=== PATIENT | female | born 1960 | race Caucasian/White ===

== ENCOUNTER → 2017-07-03 15:20 | Outpatient (CLI) | payer MEDICARE, MEDICAID, SELFPAY ==
--- NOTE | 2017-07-03 15:28 | XR_ITS ---
XR ankle LT min 3V HISTORY: ITS.REASON: BILAT ANKLE PAIN ORDERING PHYSICIAN: Yamini Ortiz PATIENT AGE: 57 years COMPARISON: None FINDINGS: No fracture or dislocation. No lytic or blastic change. There is normal mineralization.. The joint spaces are well-preserved. No significant degenerative/arthritic changes. No erosive changes evident. There is a small calcaneal spur IMPRESSION: Negative left ankle, no acute finding
--- NOTE | 2017-07-03 15:28 | XR_ITS ---
XR ankle RT min 3V HISTORY: Ankle pain ITS.REASON: BILAT ANKLE PAIN ORDERING PHYSICIAN: Yamini Ortiz PATIENT AGE: 57 years COMPARISON: None FINDINGS: No fracture or dislocation. No lytic or blastic change. There is normal mineralization.. There are mild hypertrophic changes of the tip of the medial malleolus. Ankle joint space is well-preserved. No lytic or blastic change. There is mild soft tissue swelling along the lateral aspect of the ankle IMPRESSION: Mild hypertrophy along the tip of the lateral malleolus consistent with degenerative changes with mild soft tissue swelling laterally otherwise negative
== END ==
PROVIDERS: PCP Family Medicine; Visit Provider Nurse Practitioner
DX: M25.571 Pain in right ankle and joints of right foot (principal); M25.572 Pain in left ankle and joints of left foot
CPT/HCPCS: 73610

== ENCOUNTER → 2018-01-29 11:07 | Outpatient (CLI) | payer MEDICARE, MEDICAID, SELFPAY ==
[2018-01-29 11:47] LABS: Basophils # 0.1 K/mm3 (0-0.2); Basophils % 0.6 % (0.1-2.0); Eosinophils # 0.3 K/mm3 (0.0-0.4); Eosinophils % 2.8 % (0.1-12.0); Hematocrit 38.3 % (37.0-47.0); Hemoglobin 12.6 g/dL (12.2-16.2); Lymphocytes # 2.5 K/mm3 (0.7-4.5); Lymphocytes % 24.8 K/mm3 (10-50); Mean Corpuscular HGB Conc 32.8 g/dL (31.8-35.4); Mean Corpuscular Hemoglobin 28.8 pg (27.0-31.2); Mean Corpuscular Volume 87.7 fl (81-99); Monocytes # 0.7 K/mm3 (0.1-1.0); Monocytes % 7.1 % (1.7-9.3); Neutrophils # 6.4 K/mm3 (1.8-7.8); Neutrophils % 64.6 % (37.0-80.0); Platelet Count 317 K/mm3 (142-424); Red Blood Count 4.37 M/mm3 (4.20-5.40); Red Cell Distribution Width 13.9 % (11.5-17.5); White Blood Count 9.9 K/mm3 (4.8-10.8)
--- NOTE | 2018-01-29 11:51 | XR_ITS ---
XR chest 2V HISTORY: ITS.REASON: HTN,ASTHMA ORDERING PHYSICIAN: Jelena Graham DPM PATIENT AGE: 58 years COMPARISON: 10/02/2016 FINDINGS: The cardiomediastinal silhouette and pulmonary vascularity are within normal limits. There are minimal atelectatic changes in the left lung base. The remaining lungs are clear. Mild degenerative change thoracic spine. IMPRESSION: Minimal left basilar atelectasis
[2018-01-29 12:04] LABS: INR 0.88 (0.9-1.1); Prothrombin Time 9.1 seconds (9.4-11.8)
[2018-01-29 12:34] LABS: Alanine Aminotransferase 18 U/L (12-78); Albumin Level 4.1 gm/dL (3.4-5.0); Albumin/Globulin Ratio 1.2 (1.1-1.8); Alkaline Phosphatase 142 U/L (46-116); Anion Gap 13.4 mEq/L (5-15); Aspartate Amino Transferase 15 U/L (15-37); Bilirubin,Total 0.3 mg/dL (0.2-1.0); Blood Urea Nitrogen 35 mg/dL (7-18); Calcium 9.1 mg/dL (8.5-10.1); Carbon Dioxide 30 mmol/L (21.0-32.0); Chloride 100 mmol/L (98-107); Creatinine,Serum 2.06 mg/dL (0.55-1.02); Estimated Glomerular Filt Rate 25 ml/min (>60); GFR (African American) 30 ML/MIN (>60); Globulin 3.3 gm/dl (1.3-3.2); Glucose 93 mg/dL (74-106); Potassium 3.4 mmoL/L (3.5-5.1); Sodium 140 mmol/L (136-145); Total Protein,Serum 7.4 gm/dL (6.4-8.2)
[2018-02-01 12:55] LABS: Vitamin D 25 Hydroxy 16.8 ng/mL (30.0-100.0)
== END ==
PROVIDERS: PCP Family Medicine; Visit Provider Podiatrist
DX: Z01.818 Encounter for other preprocedural examination (principal); S93.324A Dislocation of tarsometatarsal joint of right foot, initial encounter
CPT/HCPCS: 36415; 71046; 80053; 82652; 85025; 85610; 93005

== ENCOUNTER 2018-02-11 13:41 | Outpatient (RCR) | payer MEDICARE, MEDICAID, SELFPAY ==
--- NOTE | 2018-02-11 14:54 | HMH.PTOPWND ---
Rehab Outpt Wound Evaluation Rehab OP Wound Evaluation Start: 02/11/18 14:26 Freq: Status: Active Protocol: Document 02/11/18 14:26 [place] (Rec: 02/11/18 14:53 PHORNE [id number]) Electronically Signed By Kings Samuels, PT 02/11/18 14:26 Subjective/History History History Pt is 58 yowf who presents with c/o pain and edema in right foot/ankle x ~ 2-3 wks due to lis franc fx and med malleolus avulsion fx after I stepped in a hole while I was walking my dog. She reports pain with right foot in a dependent position and walking . She also reports her splint that MD applied was bothering her foot, so she took it off. She has hx of HTN, sleep apnea , anxiety/depression, chronic LBP. Lymphedema Eval Classification of Lymphedema Secondary Lymphedema Yes: due to fxs Stemmer's sign Stemmer's Sign no Stage of Lymphedema Lymphedema stages Stage I (Pitting edema, reduces w/ elevation, no fibrosis) Skin Changes Redness Yes Pain Scale Pain Scale (0-10) 8 Affected Extremities Areas Affected by Lymphedema/Edema Right Lower Extremity Manual Lymphatic Drainage Treatment Area MLD Treatment Area Right Lower Extremity Wound Problems/Impairments Impairments Problems/Impairmments Palpation Tenderness Impaired Range of Motion Impaired Strength Impaired Walking Impaired Standing Increased Edema Lymphedema Present Subjective C/O Pain Impaired Self Care/Self Management Prognosis Rehab Potential Fair Clinical Impression Consistent with Diagnosis Yes Short Term Goals Number of Weeks 4 Decreased Palpation Tenderness Yes: to min Decrease Subjective C/O Pain Yes: 11/15 Patient to Understand Lymphedema Yes Treatment and Exercises Decrease Girth Measurments by (cm) Yes: by 5 cm Fpc Goals Number of Weeks 8 Decreased Palpation Tenderness Yes: to none Decrease Subjective C/O Pain Yes: / Patient to be Ind w/ HEP Yes Patient to Adhere Lymphedema Precautions Yes Decrease Girth Measurment
== END 2018-02-11 13:42 | disposition home or self-care (01) ==
LOC: PT 13:41
PROVIDERS: Family Provider Family Medicine; PCP Family Medicine; Visit Provider Podiatrist
DX: S93.401A Sprain of unspecified ligament of right ankle, initial encounter (principal); R60.0 Localized edema
CPT/HCPCS: 97162; 97760

== ENCOUNTER → 2018-03-25 10:54 | Outpatient (CLI) | payer MEDICARE, MEDICAID, SELFPAY ==
--- NOTE | 2018-03-25 10:59 | MM_ITS ---
MM Dig screening mamm BI w/CAD ORDERING PHYSICIAN : Yamini Ortiz PATIENT AGE: 58 years GENDER: Female COMPARISON: Bilateral mammogram 2016, 11/30/2014, April 2013, November 2010 INDICATION: ITS.REASON: SCREENING no hormones. No new complaints Family history. Sister with breast cancer age 65 TECHNIQUE: Standard CC and MLO images were obtained. R2 CAD reviewed. FINDINGS: Lower density breast with generalized fatty replacement . Minimal residual fibroglandular elements. . No suspicious calcifications. No prominent findings but there is a minor density medial Right Breast slightly more evident today This Elongated somewhat linear area of density at the medial Right breast on cc view, also has a 4 mm round area at its anterior aspect.. It is best seen on the cc view, particularly the additional nipple profile cc view; & barely appreciable on the MLO view Very faint similar appearance seen on previous studies , & Mar 23. However this density stands out more so today. Appears Slightly denser today but this may be due to technique & contrast settings.. However With Final review of this area I would suggest the patient return CC, rolled cc spot views of this area along with MLO spot. Also noted positive family history with sibling warrants diligence Left breast appears stable with no significant new findings. Follow-up in one year recommended IMPRESSION: ........................ 1. Right breast somewhat linear area of density medial right breast; faintly seen previously but appears to be more pronounced & denser on today's images.-. This may merely due to technique accentuating density today, but Suggest spot views to further evaluate. 2. Left breast appears stable. Follow-up in one year BI-RADS Category: 0 Need Additional Imaging Evaluation RECOMMENDED FOLLOW-UP: IMM - IMMEDIATE FOLLOW-UP RECOMMENDED Spot views right breast (A letter has been sent to the patient regarding results of the study.)
== END ==
PROVIDERS: PCP Nurse Practitioner; Visit Provider Nurse Practitioner
DX: Z12.31 Encounter for screening mammogram for malignant neoplasm of breast (principal)
CPT/HCPCS: 77067

== ENCOUNTER → 2018-04-01 12:14 | Outpatient (CLI) | payer MEDICARE, MEDICAID, SELFPAY ==
[2018-04-01 12:48] LABS: Basophils # 0.1 K/mm3 (0-0.2); Basophils % 0.5 % (0.1-2.0); Eosinophils # 0.1 K/mm3 (0.0-0.4); Eosinophils % 1.4 % (0.1-12.0); Hematocrit 38.9 % (37.0-47.0); Hemoglobin 12.7 g/dL (12.2-16.2); Mean Corpuscular HGB Conc 32.7 g/dL (31.8-35.4); Mean Corpuscular Hemoglobin 28.8 pg (27.0-31.2); Mean Corpuscular Volume 87.9 fl (81-99); Mean Platelet Volume 7.3 fl (7.4-10.4); Monocytes # 0.6 K/mm3 (0.1-1.0); Monocytes % 5.5 % (1.7-9.3); Neutrophils # 7.8 K/mm3 (1.8-7.8); Neutrophils % 73.6 % (37.0-80.0); Platelet Count 377 K/mm3 (142-424); Red Blood Count 4.43 M/mm3 (4.20-5.40); Red Cell Distribution Width 13.9 % (11.5-17.5); White Blood Count 10.5 K/mm3 (4.8-10.8)
--- NOTE | 2018-04-01 13:18 | XR_ITS ---
XR chest 2V HISTORY: Smoker, tobacco use ORDERING PHYSICIAN: Brady Coffey DPM PATIENT AGE: 58 years COMPARISON: None FINDINGS: The cardiomediastinal silhouette and pulmonary vascularity are within normal limits. The lungs are clear without infiltrates, suspicious nodules, or pleural effusions. No acute bony abnormalities. IMPRESSION: Negative chest, no acute finding
[2018-04-01 14:56] LABS: Alanine Aminotransferase 25 U/L (12-78); Albumin Level 4.2 gm/dL (3.4-5.0); Albumin/Globulin Ratio 1.1 (1.1-1.8); Alkaline Phosphatase 149 U/L (46-116); Anion Gap 14.9 mEq/L (5-15); Aspartate Amino Transferase 21 U/L (15-37); Bilirubin,Total 0.5 mg/dL (0.2-1.0); Blood Urea Nitrogen 25 mg/dL (7-18); Carbon Dioxide 30 mmol/L (21.0-32.0); Chloride 101 mmol/L (98-107); Creatinine,Serum 1.58 mg/dL (0.55-1.02); Estimated Glomerular Filt Rate 34 ml/min (>60); GFR (African American) 41 ML/MIN (>60); Globulin 3.8 gm/dl (1.3-3.2); Glucose 130 mg/dL (74-106); Potassium 3.9 mmoL/L (3.5-5.1); Sodium 142 mmol/L (136-145)
== END ==
PROVIDERS: PCP Family Medicine; Visit Provider Podiatrist Foot & Ankle Surgery
DX: I10 Essential (primary) hypertension (principal); Z01.818 Encounter for other preprocedural examination; Z72.0 Tobacco use
CPT/HCPCS: 36415; 71046; 80053; 85025; 93005

== ENCOUNTER → 2018-04-14 09:15 | Outpatient (CLI) | payer MEDICARE, MEDICAID, SELFPAY ==
--- NOTE | 2018-04-14 09:18 | XR_ITS ---
XR ankle RT min 3V HISTORY: Follow-up fracture ITS.REASON: right ankle fx ORDERING PHYSICIAN: Lance Oro MD PATIENT AGE: 58 years Comparison: 01/28/2018 FINDINGS: The study is obtained through cast. The bulging fracture at the medial malleolus is somewhat obscured due to overlying cast. There is good alignment of the bony structures. IMPRESSION: Good alignment bony structures of the ankle
--- NOTE | 2018-04-14 09:18 | XR_ITS ---
XR foot RT min 3V HISTORY: Follow-up fracture ITS.REASON: right foot fracture ORDERING PHYSICIAN: Lance Oro MD PATIENT AGE: 58 years COMPARISON: 01/28/2018 FINDINGS: There is an overlying cast present which obscures bony detail. Comminuted fractures were present on the previous CT scan at the second, third, and fourth metatarsal bases and also fracture at the base of the fifth metatarsal. Cuneiform fractures were also noted. These fractures are poorly visualized due to overlying cast. There is good alignment of the bony structures. IMPRESSION: Metatarsal and tarsal fractures obscured by the overlying cast. Good alignment of the bony structures
--- NOTE | 2018-04-14 09:18 | XR_ITS ---
XR ankle LT min 3V HISTORY: ITS.REASON: if patient is in removable splint, please remove. ORDERING PHYSICIAN: Lance Oro MD PATIENT AGE: 58 years Comparison: None FINDINGS: Oblique fracture involves the distal fibula is mildly displaced medially. The medial fracture fragment is displaced x 4 mm medially. Fractures also displaced 5 mm posteriorly. Mildly displaced posterior distal tibial fracture also noted. The ankle mortise is widened with the talus subluxed laterally by approximately 4 mm. Nondisplaced medial malleolus fracture noted at the base of the medial malleolus. IMPRESSION: Trimalleolar fracture with lateral subluxation of the talus and widening of the ankle mortise
[2018-04-14 14:03] LABS: Basophils % 0.4 % (0.1-2.0); Eosinophils # 0.2 K/mm3 (0.0-0.4); Eosinophils % 2.2 % (0.1-12.0); Hematocrit 34.5 % (37.0-47.0); Hemoglobin 11.3 g/dL (12.2-16.2); Lymphocytes % 23.7 % (10-50); Mean Corpuscular HGB Conc 32.7 g/dL (31.8-35.4); Mean Corpuscular Hemoglobin 28.6 pg (27.0-31.2); Mean Corpuscular Volume 87.4 fl (81-99); Mean Platelet Volume 7.3 fl (7.4-10.4); Monocytes # 0.3 K/mm3 (0.1-1.0); Monocytes % 3.6 % (1.7-9.3); Neutrophils # 5.9 K/mm3 (1.8-7.8); Neutrophils % 70.1 % (37.0-80.0); Platelet Count 380 K/mm3 (142-424); Red Blood Count 3.95 M/mm3 (4.20-5.40); Red Cell Distribution Width 13.8 % (11.5-17.5); White Blood Count 8.4 K/mm3 (4.8-10.8)
[2018-04-14 14:16] LABS: Alanine Aminotransferase 18 U/L (12-78); Albumin Level 3.7 gm/dL (3.4-5.0); Albumin/Globulin Ratio 1.1 (1.1-1.8); Alkaline Phosphatase 141 U/L (46-116); Anion Gap 15.2 mEq/L (5-15); Aspartate Amino Transferase 14 U/L (15-37); Bilirubin,Total 0.2 mg/dL (0.2-1.0); Blood Urea Nitrogen 17 mg/dL (7-18); Calcium 9.5 mg/dL (8.5-10.1); Carbon Dioxide 27 mmol/L (21.0-32.0); Chloride 104 mmol/L (98-107); Creatinine,Serum 0.97 mg/dL (0.55-1.02); Estimated Glomerular Filt Rate 59 ml/min (>60); GFR (African American) 72 ML/MIN (>60); Globulin 3.4 gm/dl (1.3-3.2); Glucose 89 mg/dL (74-106); Potassium 4.2 mmoL/L (3.5-5.1); Sodium 142 mmol/L (136-145); Total Protein,Serum 7.1 gm/dL (6.4-8.2)
== END ==
PROVIDERS: PCP Family Medicine; Visit Provider Orthopaedic Surgery
DX: S82.891A Other fracture of right lower leg, initial encounter for closed fracture (principal); S82.892A Other fracture of left lower leg, initial encounter for closed fracture; M25.774 Osteophyte, right foot; Z01.818 Encounter for other preprocedural examination
CPT/HCPCS: 36415; 73610; 73630; 80053; 85025

== ENCOUNTER → 2018-04-16 09:02 | Outpatient (CLI) | payer MEDICARE, MEDICAID, SELFPAY ==
--- NOTE | 2018-04-16 09:04 | CT_ITS ---
CT ankle LT wo con INDICATION: Follow-up ankle fracture ITS.REASON: ct ankle fracture ORDERING PHYSICIAN: Lance Oro MD PATIENT AGE: 58 years COMPARISON: 04/14/2018 TECHNIQUE: Axial images are obtained without contrast. Sagittal and coronal reformatted images are reviewed as well. All CT scans at the facility use one or more dose reduction, viz: automated exposure control, ma/kV adjustment per patient size (including targeted exams where dose is matched to indication, i.e. head), or iterative reconstruction technique. FINDINGS: There is a trial malleolus fracture. Longitudinal comminuted fracture involves the posterior distal tibia with mild superior displacement of the distal fracture fragment x 5 mm. The posterior distal tibial fracture has somewhat oblique course and extends from the posterior central aspect of the distal tibia to the medial aspect of the distal tibia. The medial fracture fragment is displaced medially x 5 mm. The fracture does not involve the base of the medial malleolus. The talus is slightly inverted. Early callus formation noted. An oblique comminuted distal fibular fracture is present with 7 mm dorsal and 6 mm medial displacement of the distal fracture fragment. There is some developing callus formation noted at this region medially. The ankle mortise is widened widening of the distal tibiofibular space consistent with injury to the tibiofibular syndesmosis. There is posterior subluxation of the talus mild 1 cm IMPRESSION: Fracture/subluxation of the ankle as described above involving the distal fibula and knee posterior medial aspect of the distal tibia. The talus is subluxed posteriorly and the ankle mortise is widened. There is widening of the distal tibiofibular space consistent with injury to the tibiofibular syndesmosis. IMPRESSION:
--- NOTE | 2018-04-16 15:00 | MM_ITS ---
MM Dig mamm DX unilat RT CAD, US breast RT complete INDICATION: Follow-up abnormal mammogram ORDERING PHYSICIAN: Lance Oro MD PATIENT AGE: 58 years COMPARISON: 03/25/2018 TECHNIQUE: Spot compression views, rolled views and right breast ultrasound FINDINGS: Nodular densities are present in the medial aspect of the right breast measuring 2 and 4 mm along with an asymmetric 6 mm density. Asymmetric 6 mm density is less apparent on the rolled views and may be due to summation artifact. Also not seen on the MLO view. Right breast ultrasound: There is some ductal ectasia at the 12:00 region. There are 2 cysts at the 3:00 region corresponding to the mammographic abnormality which measure 2 and 4 mm. No suspicious sonographic nodules apparent. IMPRESSION: 2 nodular densities in the medial right breast correspond to cysts. The asymmetric density medially is probably related to asymmetric fibroglandular tissue. BI-RADS Category: 3 Probably Benign Finding Short Term Follow-up RECOMMENDED FOLLOW-UP: 6M - 6 MONTH FOLLOW-UP (A letter has been sent to the patient regarding results of the study.)
== END ==
PROVIDERS: PCP Nurse Practitioner; Visit Provider Orthopaedic Surgery
DX: S82.891A Other fracture of right lower leg, initial encounter for closed fracture (principal); R92.8 Other abnormal and inconclusive findings on diagnostic imaging of breast
CPT/HCPCS: 73700; 76641; 77065

== ENCOUNTER 2018-04-20 12:56 | Observation (INO) ==
--- NOTE | 2018-04-20 20:34 | Progress Note ---
[facility] Anesthesia Checklist - Patient Identification Patient Identification: Arm Band - Structural Data Admitted From: Home Planned Operative Procedure/s: orif left ankle Consent for Planned Operative Procedure(s) Verified: Yes Verified Documents: Surgical Consent, History and Physical - NPO Status Verified Time NPO: 00:00 - Additional verifications Anesthesia Reactions: No - Airway Assessment C-Spine Mobility Assessed: Yes (mp2) TMJ Mobility Assessed: Yes Dentition: Good Dentition - Neurological Assessment Level of Consciousness: Awake, Alert - Anesthesia Plan Anesthesia Risk discussed: Yes Anesthesia Plan: Verified ASA Class: III Anesthesia Type: General [facility] History I have reviewed the patient's past medical history: Yes Medical History: Reports:: Asthma, Hypertension Denies:: Cancer, Diabetes Mellitus Type 1, Diabetes Mellitus Type 2, Internal Pacemaker, MRSA, Seizures Other Medical History: Reports: Arthritis, Fibromyalgia, Other (sara-cpap hs). Denies: Blood Transfusion Reaction Laterality Cases: Bilateral: Carpal Tunnel Release, Other Other Surgeries: Yes: Appendectomy, , Hysterectomy-Total, Other. No: Pacemaker Amputation: No Fractures: No - *Social History Educational Level: Attended High School Smoking Status: Current every day smoker Tobacco Type: cigarettes # Packs/Day (cigarettes): 1 Alcohol Intake: never Alcohol Intake Frequency:: other Substance Use Type: denies use Occupational Status: disabled Household Members: none - Psychiatric History Expresses thoughts of harming self/others: None Suicide Plan Description: No Plan *Family Hx:: Cancer, Heart Attack, Hyperlipidemia, Hypertension, Asthma
--- NOTE | 2018-04-20 20:35 | Progress Note ---
[facility] Anesthesia Record Part I Intake, IV Amount: 2,000 Estimated blood loss (mL): 20 Urine output (mL): 200 Blood Pressure: 159/93 SaO2: 95 Pulse Rate: 92 Respiratory Rate: 16 Temperature: 97.9 F Patient is:: Drowsy, Stable Stable to PACU at:: 20:25
--- NOTE | 2018-04-20 20:35 | Progress Note ---
[facility] Anesthesia Record Part II Discharge Time: 20:55 Destination: 2nd floor PACU nurse assessment reviewed?: Yes Patient Condition:: Good Anesthesia Complications:: None
--- NOTE | 2018-04-20 20:53 | Operative Note ---
Date of procedure: 04/20/18 Pre-op Diagnosis:: 1. Neglected, closed displaced trimalleolar fracture, left 2. Subluxation of ankle, left Post-op Diagnosis:: Same Procedure performed:: Open reduction internal fixation, left ankle Surgeon:: Lance Oro MD [employer] Architect(s):: Shahrzad Montelongo COTTON OPENER:: Berry Bradshaw Anesthesia: GETA, regional Estimated blood loss (mL): 20 Operative note:: Indications: Patient is a 54-year-old female who sustained a closed, comminuted, displaced and unstable trimalleolar fracture of the LEFT ankle. The lateral and medial malleolar fractures are displaced with dislocation of the ankle joint. The posterior malleolus fragment is comminuted with a large and nondisplaced fragment and a small posterior displaced fragment. Following presentation to the ER, a closed manipulative reduction was performed and the ankle was immobilized in a short leg splint. Surgery had to be delayed because of extensive ankle swelling. She was brought to the OR for surgery after the swelling has sufficiently improved following few days of elevation and icing. Following a detailed discussion about the management options including both the nonoperative and operative, patient elected for surgical remediation. Surgery is indicated to anatomically reduce and stabilize the fracture in order to relieve the pain and restore/improve the function. Findings: Preoperative imaging findings and diagnosis correlate with the intraoperative findings. There is contusion of the soft tissue with skin blistering over the medial side above the level of the medial malleolar fracture. There is a displaced Chiang C type lateral malleolus fracture with extensive comminution and a displaced transverse fracture of the medial malleolus. There is a significant lateral talar shift and the small displaced posterior malleolus fracture fragment is well reduced after fixing the medial and lateral malleolar fractures. The inferior tibiofibular syndesmosis was unstable and was therefore fixed with two tri-cortical syndesmosis screws through the fibular plate. Following fixation the ankle joint is reduced anatomically and is stable. Description of procedure: On the day of surgery patient was met on the floor and positively identified. I again reviewed the clinical and imaging findings, diagnosis, management options including both nonsurgical and surgical and the expected results. Given the clinical and radiological findings, I have recommended an open reduction and internal fixation of the distal fibula fracture, medial malleolar fracture and stabilization of the syndesmosis as indicated intraoperatively. We've outlined where the incisions would be on the skin. Risks of surgery discussed include but are not limited to- infection, injury to nerves and blood vessels, injury to tendons, compartment syndrome, DVT/PE, malunion, nonunion, stiffness, CRPS (complex regional pain syndrome- pain, sensory and temperature changes, swelling and stiffness), painful hardware, loss of fixation, arthritis, incomplete relief of pain, incomplete return of function, and likely need for further surgery in future and also the risks of anesthesia including heart attack, stroke, and . We've discussed how there is a small but real possibility of loss of use of the leg, loss of the leg [amputation] or loss of life itself. We've also explained how additional surgery may be required and specifically discussed about the likely need for syndesmosis screw removal prior to weightbearing. We explained the weightbearing status, immobilization required, the likely need for physical therapy, the possibility of stiffness, chronic pain and we've also discussed the option of nonsurgical treatment. Patient is aware of the higher complication risk due to her co-morbidities and chronic smoking. The patient expressed full understanding and asked appropriate questions. All the questions were answered by me and patient verbalized a good understanding. She wished to proceed with surgery as planned. A physical examination was performed and documented. The limb was marked and the consent form was reviewed and signed. The patient was brought to the operating room, placed supine on the operating table, and a general anesthesia was administered. All the bony prominences were appropriately padded. A small bump was placed under the LEFT hip. A well-padded tourniquet cuff was applied over the LEFT upper thigh. The limb was then prepped and draped in the usual sterile fashion. A preprocedure timeout was performed as per hospital protocol. Administration of prophylactic antibiotics (Ancef 2 g) was confirmed with the anesthetic team. A second dose of 1 g of IV Ancef was administered 2 hours into the procedure. Skin incisions were marked for the lateral approach to the distal fibula and a mini direct approach to the medial malleolus avoiding the contused soft tissues the blistered skin. The limb was exsanguinated with Esmarch bandage and tourniquet inflated to 300 mmHg (please see nursing notes for total tourniquet time). At 2 hours mari into surgery the tourniquet was deflated, hemostasis was obtained with diathermy cautery and then the tourniquet reinflated after 10 minutes. We first started with the fixation of the distal fibula fracture. Skin incision was made for the lateral approach to the distal fibula. The dissection was carried through the subcutaneous tissue and the fracture was exposed carefully using the AO principles of management and preserving as much soft tissue attachment to the bone fragments as possible. The superficial peroneal nerve was identified proximally and kept out of harm's way throughout the procedure. Cross comminution was noted with multiple fracture fragments. The fracture ends were cleared with the freer/elevator and irrigated with normal saline. The major comminuted fracture fragments were then reduced sequentially onto the proximal fragment and individu ally fixed with interfragmentary screws. Total 3 interfragmentary screws were placed. The major proximal and distal fragments were then reduced anatomically and held with a reduction clamp. There were still multiple small comminuted fragments at this level. Position was confirmed under fluoroscopy. There are 2 major fragments were then fixed with a large lateral malleolar Kearsarge locking plate and screws. After placement of the plate across the fracture site, satisfactory position was confirmed under fluoroscopy and fixed to the bone with the locking and nonlocking screws appropriately. Two of the screw holes in the distal part of the plate were left unfilled at this stage for syndesmotic screw fixation as necessary. I then turned my attention to fixation of the medial malleolus fracture. Initially, I tried to reduce and fix the medial malleolus fracture percutaneously but was unsuccessful because the fracture was not reducing anatomically. Therefore, I proceeded with open reduction and fixation. A small skin incision was made directly over the medial malleolus avoiding the contused area. The dissection was then carried through the subcutaneous tissue exposing the fracture. The fracture was noted to be displaced with periosteal interposition at the fracture site. Fracture ends were cleared of hematoma and interposed soft tissue. The talus was inspected through the fracture site and was noted to be intact without obvious chondral injury. The ankle joint was irrigated with normal saline. The fracture was then reduced under direct vision, position confirmed under fluoroscopy, and held in place with a reduction clamp. I then placed two K wires for the screws, and drilled over the K wires. The fracture was then fixed with two x 4 mm cannulated (partially threaded) cancellous screws with washers. This gave us a very good reduction and stable fixation. The ankle joint was screened under fluoroscopy, and noted to be anatomically reduced and well fixed. The posterior malleolar fragment was also noted to be well reduced. The inferior tibiofibular syndesmosis was tested under fluoroscopy with Cotton test. This was noted to be unstable and therefore we proceeded to reduce and stabilize the syndesmosis. We accurately reduced the syndesmosis under the C-arm control and applied a large tenaculum clamp to reduce and hold the syndesmosis prior to fixation. Satisfactory reduction of the syndesmosis was confirmed under fluoroscopy in multiple views. I then fixed the syndesmosis with two 3.5 mm fully threaded cortical screws placed through two of the distal holes in the fibular plate into the distal tibia engaging 3 cortices in a non-compressive fashion. The clamp was removed and the ankle was screened under fluoroscopy checking in multiple views. We found anatomical reduction of the fractures, the syndesmosis and the ankle joint and the hardware was appropriately positioned. The inferior tibiofibular syndesmosis was well reduced and fixed in a stable fashion. The posterior malleolar fragment is small and noted to be well reduced. Fluoroscopic images were obtained and stored for future reference. The wounds were then irrigated with normal saline. The tourniquet was deflated and hemostasis was confirmed. Both the incisions were closed in layers with 2-0 Vicryl, and 3-0 Ethilon interrupted sutures to the skin. The skin and subcutaneous tissue on the medial side were then infiltrated with a total of 10 mL of 0.5 percent Marcaine. Sterile dressings were applied and the ankle placed into a well-padded short-leg Ortho-Glass posterior and sug ar tongs splint. The patient was then reversed from the anesthetic and transferred onto the bed. Patient was then transported to the postoperative recovery area in a stable condition. Patient tolerated the procedure well and there were no immediate complications. Swab, needle and instrument count was correct at the end of the procedure as per the scrub team. Postoperatively the patient was admitted for observation and will receive 2 further doses of prophylactic antibiotics. She was advised to elevate the ankle and ice frequently as well as mobilize the toes. Patient to be mobilized nonweightbearing with crutches/walker as appropriate by PT on first postop day. Implant: Elidia distal fibular locking plate and screws for the lateral malleolus. 34 mm cannulated screws with washers for the medial/posterior malleolus fractures. ([employer]ry human resources hr representative: Jake Cooper from [employer]) Antibiotic pellets with osteo-boost 10 cc, 1 g of vancomycin and 120 mg of gentamicin Condition: stable Disposition: observation Specimens:: None Complications:: None
[2018-04-21 06:26] LABS: Basophils % 0.1 % (0.1-2.0); Hematocrit 37.2 % (37.0-47.0); Hemoglobin 11.7 g/dL (12.2-16.2); Lymphocytes # 1.2 K/mm3 (0.7-4.5); Mean Corpuscular HGB Conc 31.6 g/dL (31.8-35.4); Mean Corpuscular Hemoglobin 27.9 pg (27.0-31.2); Mean Corpuscular Volume 88.4 fl (81-99); Monocytes # 0.2 K/mm3 (0.1-1.0); Monocytes % 1.8 % (1.7-9.3); Neutrophils # 9.4 K/mm3 (1.8-7.8); Neutrophils % 87.1 % (37.0-80.0); Platelet Count 413 K/mm3 (142-424); Red Cell Distribution Width 14.3 % (11.5-17.5); White Blood Count 10.8 K/mm3 (4.8-10.8)
[2018-04-21 06:29] LABS: Anion Gap 14.5 mEq/L (5-15); Calcium 9.3 mg/dL (8.5-10.1); Potassium 3.5 mmoL/L (3.5-5.1)
[2018-04-21 07:20] LABS: Lymphocytes % 7 % (10-50); Monocytes % 1 % (2-9); Neutrophils % 90 % (42-76); RBC Morphology Normal; Total Cells Counted 100
--- NOTE | 2018-04-21 07:53 | Pharmacy Consult Notes ---
[facility] Pharmacy VTE Monitoring - Patient Demographics Admission date: 04/21/18 Report Date: 04/21/18 Time: 07:53 Allergies/Adverse Reactions: Patient Allergies methadone [METHADONE] Allergy (Severe, Verified 04/20/18 13:32) S-DIFF. BREATHING morphine [MORPHINE] Allergy (Intermediate, Verified 04/20/18 13:32) I-RASH amitriptyline [From ELAVIL] Allergy (Mild, Verified 04/20/18 13:32) Height: 1.6 m Weight: 116.658 kg - VTE Risk Labs: VTE Related Lab Results Hgb 11.7 g/dL (12.2-16.2) L 04/21/18 05:28 Hct 37.2 % (37.0-47.0) 04/21/18 05:28 Plt Count 413 K/mm3 (142-424) 04/21/18 05:28 BUN 20 mg/dL (7-18) H 04/21/18 05:28 Creatinine 1.13 mg/dL (0.55-1.02) H 04/21/18 05:28 Estimated Creat Clear 45 mL/min (50-200) 04/21/18 05:28 Was VTE Risk Assessment Performed: Yes VTE Risk Level: Moderate Risk Clinical Trial Participant: No - Prophylaxis VTE Prophylaxis Ordered?: Yes Types of VTE Prophylaxis: TEDS Knee High
--- NOTE | 2018-04-21 09:39 | Progress Note ---
Subjective Date: 04/21/18 Time: 08:50 Principal diagnosis: Status post ORIF, left ankle PN: Obj Ex Vital signs: Temp Pulse Resp BP Pulse Ox 97.8 F 98 H 18 145/77 H 92 L 04/21/18 07:45 04/21/18 07:45 04/21/18 07:45 04/21/18 07:45 04/21/18 07:45 - Urinary Catheter Management Gan Cath placed during this visit: yes Insertion date: 04/20/18 Insertion time: 16:15
== END 2018-04-21 17:55 | disposition home or self-care (01) ==
LOC: OR 12:56 → 2ND 12:56
PROVIDERS: ADMIT Orthopaedic Surgery; ATTEND Orthopaedic Surgery

== ENCOUNTER → 2018-05-05 11:25 | Outpatient (CLI) | payer MEDICARE, MEDICAID, SELFPAY ==
--- NOTE | 2018-05-05 11:35 | XR_ITS ---
XR ankle LT min 3V HISTORY: Follow-up ORIF ITS.REASON: in cast ORDERING PHYSICIAN: Lance Oro MD PATIENT AGE: 58 years Comparison: 04/20/2018 FINDINGS: There is a cast present. Status post ORIF trimalleolar fracture. The ankle mortise appears slightly widened when compared to the previous exam. Some of this could be related to the positioning. Follow-up is suggested for confirmation. The tibiofibular space is slightly more prominent than on the previous study but as mentioned above could be related to slight difference in positioning. The antibiotic needs aren't resolving becoming less apparent. The bony fragments are in good alignment. IMPRESSION: Status post ORIF trimalleolar fracture with good alignment of the bony fragments. The ankle mortise appears slightly widened compared to the previous study. This could be related to slight difference in positioning. Follow-up is recommended
== END ==
PROVIDERS: PCP Nurse Practitioner; Visit Provider Orthopaedic Surgery
DX: S82.852A Displaced trimalleolar fracture of left lower leg, initial encounter for closed fracture (principal); Z48.89 Encounter for other specified surgical aftercare
CPT/HCPCS: 73610

== ENCOUNTER → 2018-05-17 13:16 | Outpatient (CLI) | payer MEDICARE, MEDICAID, SELFPAY ==
--- NOTE | 2018-05-17 13:18 | XR_ITS ---
XR foot wt bearing RT 3V HISTORY: Follow-up fracture ITS.REASON: Fracture, pain ORDERING PHYSICIAN: Jelena Graham DPM PATIENT AGE: 58 years COMPARISON: None FINDINGS: Simulated weightbearing images performed and compared to 04/14/2018. Studies obtained through a splint. Prominent hypertrophic changes are present at the distal aspect of the first metatarsal. Comminuted fracture for present on the previous CT of the second, third, and fourth metatarsal bases and base of the fifth metatarsal. Deformed fractures were also noted these fractures are very subtle and not readily apparent by plain film the only fracture that is faintly visualized is the avulsion fracture at the base of the second metatarsal. Consider CT scan to follow the progress of the fractures. There is mild prominence of the space of the base of the first second metatarsals however, the second metatarsal and cuneiform maintains good alignment. IMPRESSION: Previously noted metatarsal and tarsal fractures are not well seen. Avulsion fractures noted at the base of the second metatarsal medially. The fracture fragment appears somewhat less apparent. Consider CT for more thorough evaluation for the subtle fractures
--- NOTE | 2018-05-17 13:18 | XR_ITS ---
XR ankle wt bearing LT min 3V HISTORY: Follow-up fracture ITS.REASON: fracture follow-up ORDERING PHYSICIAN: Jelena Graham DPM PATIENT AGE: 58 years Comparison: 05/05/2018 FINDINGS: Status post ORIF fibular and medial malleolus fractures with a bone plate of the distal fibula and medial malleolus region with good alignment. There are 2 screws oriented transversely oriented to the distal fibular bone plate into the distal tibia. The most inferior of these 2 screws appears to be distracting somewhat. The head of the screw is not/with the bone plate as before distracted by approximately 2 mm. Multiple antibiotic regions are once again noted. The ankle mortise is slightly widened not significantly changed. IMPRESSION: Good alignment status post ORIF distal tibia with mildly widened mortise. The most inferior screw stabilizes the tibiofibular syndesmosis appear slightly distracted by approximately 2 mm
== END ==
PROVIDERS: PCP Nurse Practitioner; Visit Provider Podiatrist
DX: M25.774 Osteophyte, right foot (principal); S82.51XA Displaced fracture of medial malleolus of right tibia, initial encounter for closed fracture; Z09 Encounter for follow-up examination after completed treatment for conditions other than malignant neoplasm
CPT/HCPCS: 73610; 73630

== ENCOUNTER → 2018-06-07 12:26 | Outpatient (CLI) | payer MEDICARE, MEDICAID, SELFPAY ==
--- NOTE | 2018-06-07 12:28 | CT_ITS ---
CT ankle LT wo con 3-D volume reconstructions with shading included Ordering Physician: Jelean Graham DPM Patient Age: 58 years: Female HISTORY: ITS.REASON: fracture evaluation, surgical planning TECHNIQUE: Helical CT scanning performed through the ankle with . Axial sagittal and coronal reconstructions performed on CT workstation. But also 3-D volume rendering reconstructions with shading on CT workstation-[address] scans at this facility used one or more dose reduction techniques , viz: automatic exposure control, ma/Kv adjustment per patient's size, (including targeted exam where dose matched to the indication; i.e. head); or iterative reconstruction technique COMPARISON :CT ankle April 2018 FINDINGS There is been ORIF of the severe trimalleolar ankle fracture since April 16, 2018 CT. . Long metallic plate is been applied to the lateral aspect of the distal fibula extending from the distal shaft through the lateral malleolus is secured by multiple screws- including 2 screws was passed through the and fibula into the tibia providing fixation subluxation at the osseous region... The oblique, spiral fracture of the distal fibular metaphysis is again observed. Marked improved position vs April 16, 2018. Approximately 1 bone width posterior and slightly medial displacement of distal fibular fracture fragment on this set of coronal and sagittal images. .. The main fracture line remains but there is healing about the fracture zone. Separate Small fragment off the anterior aspect of the distal fibula noted on sagittal image 29 What is also noted prominent calcification throughout soft tissues overlying the entire metallic plate at the distal fibula, as well as medial to the fracture... This reflect residual of the previous antibiotic beads and/or possibly some developing myositis ossificans as well. . There is also small area residual soft tissue calcification from antibiotic bead seen lateral to the talar calcaneal joint, & nearly 1 cm infiltrate inferior to the tip of the fibula, coronal image 25 There is been ORIF of the medial and posterior malleolar fractures. 2 screws passes through this medial malleolar fracture right fixation., And one screw through the posterior malleolar fracture fragment. There is fairly good position and alignment of these fracture fragments. The fracture line remains evident with ongoing healing. Mild residual and minor step-off distraction at posterior tibial articular surface. At posterior malleolar fracture. . The colon images do show widening at the medial ankle joint with some residual lateral shift of the talus relative to the tibia. There is narrowing at the ankle mortise particularly medial aspect and at medial corner of talus. Again there were numerous antibiotic beads seen along the medial aspect of the distal tibia and medial malleolus. These account for the calcifications here. However there is also some of the limits of probably myositis ossificans which is even developing on the 04/16/2018 study Prominent soft tissue swelling and edema is seen about the ankle. There is diffuse demineralization accounting for the stippled osteopenia appearance. With this I would however no particular rare faction and decreased density at the posterior margin of the talar dome, but sagittal images 24-22.. There is some streak artifact from overlying screws which account for the the very dark dot (-this is not gas/ air based on axial image streak artifact pattern) this same lateral view does show slight flattening the distal tibia and the lateral, sagittal projection. IMPRESSION...... 1. Prior ORIF of the previous severe trimalleolar fracture.Details in text. Marked improvement compared to the 04/16/2018 CT ankle There is some Residual widening at medi
== END ==
PROVIDERS: PCP Nurse Practitioner; Visit Provider Podiatrist
DX: S82.852A Displaced trimalleolar fracture of left lower leg, initial encounter for closed fracture (principal)
CPT/HCPCS: 73700

== ENCOUNTER → 2018-06-14 11:34 | Outpatient (CLI) | payer MEDICARE, MEDICAID, SELFPAY ==
[2018-06-14 11:43] LABS: Microscopic, Urine URINE MICROSCOPIC (MICROSCOPIC)
[2018-06-14 12:10] LABS: Appearance,Urine CLEAR (Clear); Bilirubin,Urine Negative (Negative); Blood, Urine Negative (Negative); Color,Urine YELLOW (Yellow); Glucose,Urine (UA) Negative (Negative); Ketones,Urine Negative (Negative); Leukocyte Esterase,Urine Negative (Negative); Nitrate,Urine Negative (Negative); Protein,Urine Negative (Negative); Urobilinogen,Urine 0.2 EU/dl (0.2)
[2018-06-14 12:14] LABS: Basophils # 0.1 K/mm3 (0-0.2); Basophils % 0.7 % (0.1-2.0); Eosinophils # 0.2 K/mm3 (0.0-0.4); Eosinophils % 2.8 % (0.1-12.0); Hematocrit 34.6 % (37.0-47.0); Hemoglobin 11.2 g/dL (12.2-16.2); Lymphocytes # 2.2 K/mm3 (0.7-4.5); Lymphocytes % 30.8 % (10-50); Mean Corpuscular HGB Conc 32.4 g/dL (31.8-35.4); Mean Corpuscular Hemoglobin 28.8 pg (27.0-31.2); Mean Platelet Volume 7.4 fl (7.4-10.4); Monocytes # 0.4 K/mm3 (0.1-1.0); Monocytes % 6.1 % (1.7-9.3); Neutrophils # 4.3 K/mm3 (1.8-7.8); Neutrophils % 59.6 % (37.0-80.0); Platelet Count 332 K/mm3 (142-424); Red Blood Count 3.89 M/mm3 (4.20-5.40); Red Cell Distribution Width 13.6 % (11.5-17.5); White Blood Count 7.2 K/mm3 (4.8-10.8)
[2018-06-14 12:16] LABS: Bacteria,Urine 1+ /lpf; INR 0.92 (0.9-1.1); Prothrombin Time 9.5 seconds (9.4-11.8); Squamous Epithelial Cell,Urine Occasional #/hpf (0-5); WBC,Urine Occasional #/hpf (0-3)
[2018-06-14 12:38] LABS: Hemoglobin A1C 5.6 % (0.0-7.0)
[2018-06-14 13:12] LABS: Alanine Aminotransferase 20 U/L (12-78); Albumin Level 3.8 gm/dL (3.4-5.0); Albumin/Globulin Ratio 1.1 (1.1-1.8); Alkaline Phosphatase 139 U/L (46-116); Anion Gap 12.3 mEq/L (5-15); Aspartate Amino Transferase 15 U/L (15-37); Bilirubin,Total 0.2 mg/dL (0.2-1.0); Blood Urea Nitrogen 30 mg/dL (7-18); Carbon Dioxide 31 mmol/L (21.0-32.0); Chloride 102 mmol/L (98-107); Creatinine,Serum 1.47 mg/dL (0.55-1.02); Estimated Glomerular Filt Rate 37 ml/min (>60); GFR (African American) 44 ML/MIN (>60); Globulin 3.6 gm/dl (1.3-3.2); Glucose 99 mg/dL (74-106); Potassium 4.3 mmoL/L (3.5-5.1); Sodium 141 mmol/L (136-145); Total Protein,Serum 7.4 gm/dL (6.4-8.2)
[2018-06-15 14:00] LABS: Vitamin D 25 Hydroxy 13.9 ng/mL (30.0-100.0)
== END ==
PROVIDERS: Visit Provider Podiatrist
DX: Z01.818 Encounter for other preprocedural examination (principal); S82.852A Displaced trimalleolar fracture of left lower leg, initial encounter for closed fracture; D64.9 Anemia, unspecified; Z79.899 Other long term (current) drug therapy; Z51.81 Encounter for therapeutic drug level monitoring
CPT/HCPCS: 36415; 80053; 81001; 82652; 83036; 85025; 85610; 93005

== ENCOUNTER 2018-06-16 09:50 | Observation (INO) ==
--- NOTE | 2018-06-16 14:11 | Operative Note ---
Date of procedure: 06/16/18 Pre-op Diagnosis:: 1. Left post traumatic ankle osteoarthritis 2. S/p left ankle ORIF 04/20/18 3. Left trimalleolar ankle fracture mal-union 4. Left ankle synovitis 5. Left equinus Post-op Diagnosis:: Same Procedure performed:: 1. Left ankle hardware removal 2. Left ankle arthrodesis 3. Left application of external fixation device 4. Left ankle synovectomy 5. Left application of amniotic tissue Surgeon:: Jelena Graham DPM Leather Finisher(s):: Dr. Dannielle Gunn WORK CAR OPERATOR:: Other (Eleazar Walker) Anesthesia: regional, LMA Estimated blood loss (mL): 50 Clinical Note:: Ms. Greco is a 58-year-old female who presents for surgical planning visit for left ankle. S/p left trimalleolar ORIF by Dr. Oro 04/20/18. She is also here for follow up right Lisfranc fracture dislocation. DOI: 01/27/18. She has been treated conservatively in cast b/l LE. She is now WBaT to right foot. She reports a history of chronic back pain and fibromyalgia, takes gabapentin, Cymbalta. She states the longer she is up and about she states she had throbbing pain in the left ankle. I reviewed and discussed the x-rays and CT scan of the left ankle with the patient. I explained that the left ankle screws are backing out and joint is widening and sent the patient for new x-rays today. We discussed conservative versus surgical treatment. Conservative treatment would include strict nonweightbearing in a fiberglass cast. Patient has been more compliant with the treatment plan since she can put some weight to the right foot. She is a fall risk. I explained to the patient that surgery is a possibility to revise the left ankle. Due to her comorbidities and non compliance I would recommend an ankle fusion with external fixation device. The ex fix would be so the patient could weight-bear sooner given her limited mobility and re-enforce the ankle once ankle ORIF fixation is removed and bone weakened. I would also recommend strongly a [facility] facility postop for physical therapy and assistance. The patient has agreed to surgery and SNF. Her last glucose was 142 on 04/20/18. We discussed diabetes and the ramifications of uncontrolled diabetes with Cece. All risks and benefits were discussed including but not limited to: damage to blood vessels and nerves, bleeding, infection, wound complications, delayed, mal or non-union of bone, post-traumatic arthritis, need for further surgery, need for removal of implant, prolonged swelling of the extremity, prolonged pain, CRPS/RSD, DVT, and anesthetic complications. No guarantees were given. All questions fully answered. The patient verbalized understanding and agreed to proceed with surgery. Consent was obtained. Medical clearance previously per Dr. Watts. Discussed plan of care today with [facility]. They gave verbal medical clearance and will see the patient Wedn 06/16/17. The PCP team will admit the patient and plan for SNF after surgery. We discussed DVT prophylaxis with mechanical pump and anticoagulation therapy. Plan for Lovenox injections postoperatively. We discussed pain control. Patient has had chronic pain control issues since January. She has been referred to pain management, Dr. Jacome. We discussed smoking cessation, use of nicotine patches. Plan for surgery, Wedn 06/16/17: 1. Left ankle hardware removal 2. Left ankle arthrodesis 3. Left application of external fixation device 4. Left application of bone graft 5. Left tendo Achilles lengthening Operative findings:: Antibiotic beads noted to medial and lateral ankle. Trimalleolar ankle fracture mal union. Soft osteoporotic bone. Cartilage and degenerative changes to ankle joint. Synovitis noted. Patient had a large body habitus, subcutaneous fat and scar tissue which took longer than usual to dissect. Operative note:: On this date and time, the patient was deemed an appropriate surgical candidate. With informed consent signed, the patient was taken to the operating theater after a pre-operative regional block was given by anesthesia. The patient was positioned supine. General anesthesia was induced. Tourniquet was applied to the left thigh. The left lower extremity was prepped and draped in normal sterile fashion. Left Ankle Hardware Removal: Attention was directed to the medial and lateral ankle where previous incisions were noted. Dissection was carried down skin and scar tissue with care taken to maintain surgical hemostasis and safely retract neurovascular structures. Dissection was then carried down full-thickness to the level of the bone. Thick scar tissue and synovitis noted. Antibiotic beads were noted to be partially absorbed. Remnants of beads were removed. Hardware visualized. The plates and screws were removed. Bone quality was noted to be quite poor. The wounds were flushed with pulse lavage with 3L of bacitracin irrigation. 2-0 Vicryl was used to close deep tissue in a running fashion. 3-0 Vicryl was used to close subq layer in an interrupted fashion. 3-0 Nylon was used to closed skin. Left Ankle Arthrodesis: The tourniquet was inflated at 250 mmHg. Attention was directed to the anterior ankle intact healthy skin was noted. Dissection was carried thru skin and subcutaneous tissue with care taken to maintain surgical hemostasis and safely retract neurovascular structures. Dissection was then carried through deep fascia to bone in a full thickness flap. There was a large amount of scar tissue and synovitis noted. The tissue layers were very scarred together such that the deep fascia, retinaculum and tendon sheaths were all one layer. The tibia was noted to be soft in places, no signs of infection. Left Ankle Synovectomy: There was sent as noted to the ankle joint. Tissue appeared to be abnormal piece was resected and sent as a specimen to pathology. Thick tissue and fluid was debrided and the wound was flushed with copious amounts of normal saline. Using saw then hand resection with osteotome and currettes, the cartilage was removed from the ankle joint. 2-0 Drill bit was used to fenestrate the subchondral bone plate to healthy bleeding bone. The wound was flushed with copious amounts of saline. At this point position was checked under intra-op fluoro. Attention was re-directed back to the ankle. Temporary fixation was achieved. Once again x-ray was used to check position of fusion. No anterior translocation was noted. [facility] anterior ankle fusion plate and 6.5mm cannulated screws were then inserted in standard technique. Good apposition and position was noted. X-ray confirmed position and hardware was not in the STJ. The wound was flushed. 2-0 Vicryl was used to close deep tissue in a running fashion. 3-0 Vicryl was used to close subq layer in an interrupted fashion. Amniotic membrane was inserted into all incisions. Application of Amniotic Membrane: After deep closure, the amniotic membrane was inserted over the deep fascia. The subcutaneous layer was closed and more membrane was inserted prior to skin closure. Skin was closed with 3-0 Nylon in a mattress fashion. The tourniquet was deflated after 125 mins and immediate hyperemic response was noted to the digits. The wounds were cleansed. Left Foot Application of External Fixation Device: Due to the previous hardware, mal-union and poor bone quality coupled with patients noncompliance, decision was made to apply ex fix. A Cisivation external fixation device was utilized. The frame had been prebuilt with a footplate, two full leg rings and a 5/8th ring. Leg holders were positioned and the leg placed in the frame. Attention was directed to the lateral calcaneus where an olive wire was positioned from the inferior lateral calcaneus and driven to the medial inferior calcaneus. The calcaneus felt soft in texture. Next a second olive wire was driven from the medial calcaneus into the lateral calcaneus. Attention was directed proximally to the proximal most ring where a wire was driven from the anterior face of the tibia lateral to medial and a second wire driven from medial to lateral. The wires were tensioned and some stability was noted to the frame. Next 2 more olive wires were used this time on the distal tibia from medial to lateral lateral to medial in an "X" pattern. The leg wires were tensioned to 125. Good stability of the frame was noted. Next an olive wire was positioned from the medial first metatarsal captur ing the second and third metatarsals and exiting dorsal lateral on the midfoot. Similarly another olive wire was placed from the fifth metatarsal angle proximal medial capturing the fifth fourth and third metatarsal prior to exiting. The distal foot olive wires were then tensioned to 90 and some deformity was noted to be reduced with the foot being pulled internally and more medially in the frame. Adequate position of the foot within the frame was noted. The skin was not touching or rubbing against the frame in any plane. Intraoperative fluoroscopy was utilized to obtain x-rays which showed adequate position of foot and leg within the frame. Wires were tightened. Xeroform applied around the pin sites and a dry sterile dressing was applied to the foot. The foot plate was attached. The patient was awoken from anesthesia and transferred to recovery with vital signs stable and neurovascular status intact. Materials: [employer] (Charcot external fixator) Interior wires x 8 6.5mm cannulated partially threaded screw x 1 Amnio graft x 1 [employer]flow Discharge/Plan: Admit for overnight observation for pain control, under Dr. Watts. Dr. Graham to consult. Plan for one session of physical therapy in morning. SNF pending. Patient is to maintain dressing clean dry and intact. Ice/polar pack behind the left knee and elevate on foam ramp or two pillows. Non weight bearing to the left lower extremity with DME assistance. Rx given for Percocet 7.5/325 #30, Zofran, Keflex 500mg x 14 days, Motrin 800mg. Obtain post op films, left ankle and foot 3 views. Follow up in one week for dressing change. Tourniquet time (min): 125 Condition: stable Disposition: floor Specimens:: Left ankle soft tissue Complications:: None
--- NOTE | 2018-06-16 18:53 | Progress Note ---
[facility] Anesthesia Checklist - Patient Identification Patient Identification: Arm Band, Verbal (Name & ) - Structural Data Admitted From: Home Planned Operative Procedure/s: Left ankle hardware removal, revision of ORIF, external fixation Consent for Planned Operative Procedure(s) Verified: Yes Verified Documents: Surgical Consent, History and Physical - NPO Status Verified Time NPO: 20:30 - Chart Verification Results Verified: CBC, BMP, PT, PTT, INR - Additional verifications Fingerstick Blood Glucose: 113 Anesthesia Reactions: No - Airway Assessment C-Spine Mobility Assessed: Yes TMJ Mobility Assessed: Yes Dentition: Good Dentition - Neurological Assessment Level of Consciousness: Awake Hx Seizures: No Numbness or tingling in extremities: No - Anesthesia Plan Anesthesia Risk discussed: Yes Anesthesia Plan: Verified ASA Class: III Anesthesia Type: General (with popliteal/saphaneous nerve block) [facility] History I have reviewed the patient's past medical history: Yes Medical History: Reports:: Anxiety, Asthma, Depression, Hypertension Denies:: Cancer, Diabetes Mellitus Type 1, Diabetes Mellitus Type 2, Internal Pacemaker, MRSA, Seizures Have you ever received a pneumonia vaccine?: Yes Have you received a flu vaccine this season?: Yes Other Medical History: Reports: Arthritis, Fibromyalgia, Hoarseness, Sinus Problems, Other (SHAMA). Denies: Blood Transfusion Reaction Laterality Cases: Left: Other, Bilateral: Carpal Tunnel Release Other Surgeries: Yes: Appendectomy, Colonoscopy, , EGD, Hysterectomy- Total, Other. No: Pacemaker Amputation: No Fractures: Yes - *Social History Educational Level: Attended College Smoking Status: Current every day smoker Tobacco Type: e-cigarettes # Packs/Day (cigarettes): 1 #Yrs smoked (if former smoker): 20 Alcohol Intake: never Alcohol Intake Frequency:: other Substance Use Type: denies use Occupational Status: disabled Housing: apartment Household Members: none Travel in the last 8 weeks: None - Psychiatric History Expresses thoughts of harming self/others: None Suicide Plan Description: No Plan *Family Hx:: Cancer, Heart Attack, Hyperlipidemia, Hypertension, Asthma
--- NOTE | 2018-06-16 18:54 | Progress Note ---
[facility] Anesthesia Record Part I Intake, IV Amount: 2,000 Estimated blood loss (mL): 20 Urine output (mL): 1,100 Blood Products used (#): none Blood Pressure: 152/78 SaO2: 96 Pulse Rate: 102 Respiratory Rate: 16 Temperature: 99.1 F Patient is:: Awake, Stable Stable to PACU at:: 18:45
--- NOTE | 2018-06-16 18:54 | Progress Note ---
[facility] Anesthesia Record Part II Discharge Time: 19:15 Destination: Medical Surgical Department PACU nurse assessment reviewed?: Yes Patient Condition:: Good Anesthesia Complications:: None Swallowing reflex intact?: Yes Cyanosis?: No
--- NOTE | 2018-06-17 07:04 | Progress Note ---
Internal Medicine - PN: Subj Interval history: Patient sleeping soundly this morning awakens easily. She does admit to some pain in her left ankle. She denies shortness of breath or chest pain this morning. Exam Vital signs and Labs for Last 24 Hours: Temp Pulse Resp BP Pulse Ox 97.6 F 81 17 165/97 H 95 06/16/18 23:44 06/16/18 23:44 06/16/18 23:44 06/16/18 23:44 06/16/18 23:44 Laboratory Results - last 24 hr 06/16/18 11:18: POC Glucose 113 H 06/16/18 14:15: Urine Color Yellow, Urine Appearance Clear, Urine pH 7.0, Ur Specific [place] 1.015, Urine Protein Negative, Urine Glucose (UA) Negative, Urine Ketones Negative, Urine Blood Trace-l, Urine Nitrate Negative, Urine Bilirubin Negative, Urine Urobilinogen 0.2, Ur Leukocyte Esterase Negative, Urine RBC 3-5, Urine WBC Occasional, Ur Squamous Epith Cells None, Urine Bacteria None 06/16/18 19:23: POC Glucose 171 H I & O for Last 24 hours: Intake & Output 06/14/18 06/15/18 06/16/18 06/17/18 11:59 11:59 11:59 11:59 Intake Total 2000 / 2000 Output Total 500 / 500 1100 / 1100 Balance -500 / -500 900 / 900 Weight 445 lb 5.34 oz - Constitutional no acute distress - *Routine Respiratory Exam Present: CTA bilaterally - *Routine Cardiovascular Exam Present: RRR, Normal S1, Normal S2 - *Routine Extremities Exam Comments: Left foot and ankle is splinted and heavily bandaged. Drain is in place. Assessment and Plan (1) S/P ankle arthrodesis Current visit: Yes Status: Acute Category: Surgical Code(s): Z98.1 - Arthrodesis status (2) Closed trimalleolar fracture of left ankle Current visit: No Status: Acute Qualifiers: Category: Medical Code(s): S82.852A - Displaced trimalleolar fracture of left lower leg, initial encounter for closed fracture - Assessment and plan all Dx Assessment and Plan for all problems:: Patient is nonweightbearing at this time. PT and OT consults today. Postop management of drain per Dr. Cortes. We have discussed patient's insurance will not require a qualifying stay. Once PT OT consults have been obtained search for a shelter facility for the patient will begin. Patient current lives at home alone and due to her weightbearing status will not be able to care for herself independently
--- NOTE | 2018-06-17 08:16 | Consult Report ---
*Admission Date: 06/16/18 *Chief complaint: Left post traumatic osteoarthritis, trimalleolar ankle fracture mal-union *History of present illness: Ms. Greco is a 58-year-old female who was admitted 06/16/18 for postoperative pain control. Patient had a trimalleolar ankle fracture, status post ORIF 04/20/18. She had a fracture mall union with continued pain and swelling. Degenerative changes to the ankle joint. Patient underwent surgery yesterday to remove internal fixation, clean out the ankle joint and synovitis and primarily fuse the ankle. The quality of the bone and external fixation device was also applied to stabilize the lower extremity. Patient is resting comfortably in bed this morning. Complaints of pain controlled with medication. She denies N/V, F/C, SOB/CP. Review of Systems - Review of Systems Review of systems:: unable to obtain - Constitutional Denies chills, Denies fatigue - Eyes Denies blurry vision - ENT Denies abnormal hearing - *Cardiovascular Denies shortness of breath - *Respiratory Denies cough, Denies shortness of breath - *Gastrointestinal Denies abdominal pain, Denies nausea, Denies vomiting - *Genitourinary Denies absent period - *Musculoskeletal Reports back pain, Reports limited joint movement - Integumentary/Breasts Denies skin ulcer - Psychiatric Reports anxiety - Endocrine Reports cold intolerance - Allergic/Immunologic Reports GI upset with certain foods [facility] History Medical History: Reports:: Anxiety, Asthma, Depression, Hypertension Denies:: Cancer, Diabetes Mellitus Type 1, Diabetes Mellitus Type 2, Internal Pacemaker, MRSA, Seizures Have you ever received a pneumonia vaccine?: No Have you received a flu vaccine this season?: No Other Medical History: Reports: Arthritis, Fibromyalgia, Hoarseness, Sinus Problems, Other (SHAMA). Denies: Blood Transfusion Reaction Laterality Cases: Left: Other, Bilateral: Carpal Tunnel Release Other Surgeries: Yes: Appendectomy, Colonoscopy, , EGD, Hysterectomy- Total, Other. No: Pacemaker Amputation: No Fractures: Yes - *Social History Educational Level: Attended College Smoking Status: Current every day smoker Tobacco Type: e-cigarettes # Packs/Day (cigarettes): 1 #Yrs smoked (if former smoker): 20 Alcohol Intake: never Alcohol Intake Frequency:: other Substance Use Type: denies use Occupational Status: disabled Housing: apartment Household Members: none Travel in the last 8 weeks: None - Psychiatric History Expresses thoughts of harming self/others: None Suicide Plan Description: No Plan Pschychiatric History:: Reports:: Anxiety, Depression *Family Hx:: Cancer, Heart Attack, Hyperlipidemia, Hypertension, Asthma Meds Home Medications Medication Instructions Recorded Confirmed Type Duloxetine HCl 60 mg PO DAILY 01/28/18 06/16/18 History Gabapentin [Neurontin 600mg 1,200 mg PO TID 01/28/18 06/16/18 History tablet] Quetiapine Fumarate 100 mg PO DAILY 01/28/18 06/16/18 History Temazepam [Restoril 30mg capsule] 30 mg PO HS 01/28/18 06/16/18 History Tizanidine HCl [Zanaflex 4mg 6 mg PO TIDP PRN 01/28/18 06/16/18 History tablet] albuterol sulfate 2.5 mg/3 mL 3 ml IH TID 20 Days #180 01/29/18 06/16/18 History (0.083 %) solution for nebulization aspirin 81 mg tablet,delayed 81 mg PO DAILY 01/29/18 06/16/18 History release budesonide-formoterol HFA 160 2 puff INHALATION BID 30 Days #10 01/29/18 06/16/18 History mcg-4.5 mcg/actuation aerosol inhaler ondansetron 4 mg disintegrating 4 mg PO Q8H 30 Days #90 01/29/18 06/16/18 History tablet Cetirizine HCl [Zyrtec] 10 mg PO DAILY 04/21/18 06/16/18 History Losartan/Hydrochlorothiazide 1 tab PO DAILY 04/21/18 06/16/18 History [Losartan-Hctz 100-25 mg Tab] Metoprolol Succinate 50 mg PO DAILY 04/21/18 06/16/18 History Amlodipine Besylate [Norvasc 5mg 5 mg PO DAILY 06/15/18 06/16/18 History tablet] cholecalciferol (vitamin D3) 50,000 unit PO QWEEK #20 cap 06/15/18 06/16/18 Rx 50,000 unit capsule ibuprofen 800 mg tablet 800 mg PO BID #60 tab 06/15/18 06/16/18 Rx ondansetron 4 mg disintegrating 4 mg PO Q6H #30 tab 06/15/18 06/16/18 Rx tablet Cholecalciferol (Vitamin D3) 50,000 unit PO QWEEK 06/16/18 06/16/18 History [Vitamin D3 50,000 unit Cap] cephALEXin [Keflex 500mg Cap] 500 mg PO Q12H 06/16/18 06/16/18 History Allergies Allergy/AdvReac Type Severity Reaction Status Date / Time methadone [METHADONE] Allergy Severe S-DIFF. Verified 06/16/18 10:03 BREATHING morphine [MORPHINE] Allergy Intermediate I-RASH Verified 06/16/18 10:03 amitriptyline [From ELAVIL] Allergy Mild Verified 06/16/18 10:03 Exam Vital signs and Labs for Last 24 Hours: Temp Pulse Resp BP Pulse Ox 98.4 F 86 17 166/79 H 96 06/17/18 08:00 06/17/18 08:00 06/17/18 08:00 06/17/18 08:00 06/17/18 08:00 Laboratory Results - last 24 hr 06/16/18 11:18: POC Glucose 113 H 06/16/18 14:15: Urine Color Yellow, Urine Appearance Clear, Urine pH 7.0, Ur Specific [place] 1.015, Urine Protein Negative, Urine Glucose (UA) Negative, Urine Ketones Negative, Urine Blood Trace-l, Urine Nitrate Negative, Urine Bilirubin Negative, Urine Urobilinogen 0.2, Ur Leukocyte Esterase Negative, Urine RBC 3-5, Urine WBC Occasional, Ur Squamous Epith Cells None, Urine Bacteria None 06/16/18 19:23: POC Glucose 171 H I & O for Last 24 hours: Intake & Output 06/14/18 06/15/18 06/16/18 06/17/18 11:59 11:59 11:59 11:59 Intake Total 2360 / 2360 Output Total 500 / 500 1100 / 1100 Balance -500 / -500 1260 / 1260 Weight 445 lb 5.34 oz - *Routine HEENT Exam Head: Present: normocephalic - *Routine Neck Exam Present: supple - *Routine Respiratory Exam Present: accessory muscle use - *Routine Cardiovascular Exam Present: RRR - *Routine Abdominal Exam Present: soft - *Routine Rectal Exam Patient deferred: visual exam - *Routine Exam Patient deferred: external exam - *Routine Extremities Exam Present: full ROM, pulses intact, normal capillary refill - *Routine Skin Exam Present: warm - *Routine Neurological Exam Present: alert, moving all extremities - Detailed Lower Extremity Exam Comments: External fixation device and dressing clean dry and intact to the left lower extremity. No strikethrough noted. BECKA drain intact remove bedside today. Light touch sensation at baseline. Motor function intact. No calf or thigh pain noted bilaterally. Results - Labs Labs: Abnormal lab results 06/16/18 06/16/18 Range/Units 11:18 19:23 POC Glucose 113 H 171 H (70-110) All other labs normal. Assessment and Plan (1) S/P ankle arthrodesis Current visit: Yes Status: Acute Category: Surgical Code(s): Z98.1 - Arthrodesis status (2) Closed trimalleolar fracture of left ankle Current visit: No Status: Acute Qualifiers: Category: Medical Code(s): S82.852A - Displaced trimalleolar fracture of left lower leg, initial encounter for closed fracture (3) Retained orthopedic hardware Current visit: Yes Status: Acute Category: Medical Code(s): Z96.9 - Presence of functional implant, unspecified (4) Closed displaced trimalleolar fracture of left ankle with malunion Current visit: Yes Status: Acute Category: Medical Code(s): S82.852P - Displaced trimalleolar fracture of left lower leg, subsequent encounter for closed fracture with malunion (5) Synovitis of left ankle Current visit: Yes Status: Acute Category: Medical Code(s): M65.9 - Synovitis and tenosynovitis, unspecified - Assessment and plan all Dx Assessment and Plan for all problems:: S/p left ankle arthrodesis, jelly of ex fix, synovectomy, and hardware removal on 06/16/18 POD # 1 Ex fix and dressings are clean, dry and intact to the LLE with no signs of infection. BECKA drain intact, pulled at beside this am. Patient is to keep this dressing clean, dry, and intact until their follow up appointment in one week. They are to continue non weight bearing. Ice (cryo cuff), elevate and Motrin for pain and swelling. Will need Rx Percocet. e-Rx Motrin, Keflex, Zofran. Continue incentive spirometer q1h. They should call me with any questions or concerns. Plan for physical therapy this morning to get out of bed and gait training, NWB LLE. Patient lives alone and has difficulty ambulating. She has fallen in the past. SNF evaluation for assistance with NWB status, physical therapy and pain mgmt. Referral made for Dr. Jacome out patient for chronic pain control. Upon discharge, she will need to follow up in one week for dressing change, 06/24/18 @1040.
--- NOTE | 2018-06-17 08:31 | Pharmacy Consult Notes ---
[facility] Pharmacy VTE Monitoring - Patient Demographics Admission date: 06/16/18 Report Date: 06/17/18 Time: 08:31 Allergies/Adverse Reactions: Patient Allergies methadone [METHADONE] Allergy (Severe, Verified 06/16/18 10:03) S-DIFF. BREATHING morphine [MORPHINE] Allergy (Intermediate, Verified 06/16/18 10:03) I-RASH amitriptyline [From ELAVIL] Allergy (Mild, Verified 06/16/18 10:03) Height: 1.6 m Weight: 202 kg Patient Problems: Current Active Problems S/P ankle arthrodesis (Acute) - VTE Risk Was VTE Risk Assessment Performed: Yes VTE Score: 6 VTE Risk Level: Moderate Risk - Prophylaxis VTE Prophylaxis Ordered?: Yes Types of VTE Prophylaxis: TEDS Knee High, IPCS Thigh High Location of Applied Device: Right Leg - VTE Diagnosis Confirmed Treatment or plan recommended: Continue Current Treatment
[2018-06-17 16:38] LABS: Basophils % 0.2 % (0.1-2.0); Eosinophils # 0.1 K/mm3 (0.0-0.4); Eosinophils % 1.1 % (0.1-12.0); Hematocrit 26.7 % (37.0-47.0); Hemoglobin 8.3 g/dL (12.2-16.2); Lymphocytes % 23.7 % (10-50); Mean Corpuscular HGB Conc 31.2 g/dL (31.8-35.4); Mean Corpuscular Hemoglobin 28.3 pg (27.0-31.2); Mean Corpuscular Volume 90.7 fl (81-99); Mean Platelet Volume 8.5 fl (7.4-10.4); Monocytes # 0.6 K/mm3 (0.1-1.0); Monocytes % 7.1 % (1.7-9.3); Neutrophils # 5.8 K/mm3 (1.8-7.8); Platelet Count 270 K/mm3 (142-424); Red Blood Count 2.94 M/mm3 (4.20-5.40); Red Cell Distribution Width 13.8 % (11.5-17.5); White Blood Count 8.6 K/mm3 (4.8-10.8)
--- NOTE | 2018-06-18 07:05 | Progress Note ---
Subjective Date: 06/18/18 Time: 06:55 Principal diagnosis: S/p left trimalleolar ankle fracture malunion Interval history: Ms. Greco is a 58-year-old female who was admitted 06/16/18 status post left ankle arthrodesis with application of external fixation device. She is resting comfortably in bed this morning with no complaints of shortness of breath or chest pain. Denies N/V, F/C. Patient reports some pain to the left leg. Pain controlled with medication. PN: Obj Ex Vital signs: Temp Pulse Resp BP Pulse Ox 98.6 F 90 16 150/90 H 96 06/18/18 04:00 06/18/18 04:00 06/18/18 04:00 06/18/18 04:00 06/18/18 04:00 - Routine HEENT Exam Head: Present: normocephalic - Routine Neck Exam Present: supple - Routine Chest/Breast/Axilla Exam Chest wall: Absent: tenderness Breast: Absent: tenderness - Routine Respiratory Exam Absent: respiratory distress - Routine Cardiovascular Exam Present: RRR - Routine Abdominal Exam Present: soft. Absent: guarding, rigid - Routine Extremities Exam Present: edema, pulses intact, normal capillary refill. Absent: calf tenderness - Detailed Lower Extremity Exam Comments: Dressing clean dry and intact over the left external fixation device. Skin warm to touch. Capillary fill time within normal limits. No calf or thigh pain noted bilateral. Light touch sensation at baseline. Motor function intact. - Routine Skin Exam Present: warm - Routine Neurological Exam Present: alert, oriented X3, moving all extremities - Urinary Catheter Management Gan Cath placed during this visit: yes, but has since been removed by the nurse Urethral indwelling: No Reason for continuing: Surgical procedure Insertion date: 06/16/18 Insertion time: 14:15 Removal date: 06/17/18 Progress Note: A&P (1) S/P ankle arthrodesis Status: Acute Current Visit: Yes (2) Closed trimalleolar fracture of left ankle Status: Acute Current Visit: No Assessment and Plan for All Diagnoses:: S/p left ankle arthrodesis, jelly of ex fix, synovectomy, and hardware removal on 06/16/18 POD # 2 Ex fix and dressings are clean, dry and intact to the LLE with no signs of infection. Cryo cuff not in place. Ice bag x 1 behind the left knee. Patient is to keep this dressing clean, dry, and intact until their follow up appointment in one week. They are to continue non weight bearing. Ice (cryo cuff), elevate and Motrin for pain and swelling. e-Rx Motrin, Keflex, Zofran. Continue incentive spirometer q1h. They should call me with any questions or concerns. Patient lives alone and has difficulty ambulating. She has fallen in the past. SNF evaluation for assistance with NWB status, physical therapy and pain mgmt. Referral made for Dr. Jacome out patient for chronic pain control. Upon discharge, if SNF not approved, she will need home health care. Okay from Podiatry stand point to be discharged today. 1. NWB LLE with DME (patient has wheelchair, walker at home) 2. e-Rx Motrin, Keflex, Zofran (called in previously, family should have picked up meds) 3. Rx on chart for Percocet 10/325 4. Case mgmt: she will need bedside commode, shower chair 5. Apply cryo cuff as previously ordered 6. Maintain dressing clean dry and intact to LLE 7. Elevate LLE on 2 pillows as tolerated 8. Follow up in one week outpatient for dressing change, 06/24/18 @1040.
--- NOTE | 2018-06-18 07:08 | Progress Note ---
Internal Medicine - PN: Subj Interval history: Patient states her pain was somewhat difficult to control your day. She spent the majority day up in chair. Yesterday evening around 4 PM I was contacted because patient was hypotensive. Despite her blood pressure she was acting normally and sitting in the chair. She was given a 1 L normal saline bolus and a CBC was checked. Patient's globin was 8.3 which is a significant drop since her preop labs. She denies shortness of breath or lightheadedness. Exam Vital signs and Labs for Last 24 Hours: Temp Pulse Resp BP Pulse Ox 98.6 F 90 16 150/90 H 96 06/18/18 04:00 06/18/18 04:00 06/18/18 04:00 06/18/18 04:00 06/18/18 04:00 Laboratory Results - last 24 hr 06/17/18 16:35: WBC 8.6, RBC 2.94 L, Hgb 8.3 L, Hct 26.7 L, MCV 90.7, MCH 28.3, MCHC 31.2 L, RDW 13.8, Plt Count 270, MPV 8.5, Neut % (Auto) 68.0, Lymph % (Auto) 23.7, Darke % (Auto) 7.1, Eos % (Auto) 1.1, Baso % (Auto) 0.2, Neut # (Auto) 5.8, Lymph # (Auto) 2.0, Darke # (Auto) 0.6, Eos # (Auto) 0.1, Baso # (Auto) 0.0 I & O for Last 24 hours: Intake & Output 06/15/18 06/16/18 06/17/18 06/18/18 11:59 11:59 11:59 11:59 Intake Total 2360 / 2360 3962 / 3962 Output Total 500 / 500 1100 / 1100 650 / 650 Balance -500 / -500 1260 / 1260 3312 / 3312 Weight 445 lb 5.34 oz 445 lb 5.34 oz - Constitutional no acute distress - *Routine Respiratory Exam Present: CTA bilaterally - *Routine Cardiovascular Exam Present: RRR, Normal S1, Normal S2 Assessment and Plan (1) S/P ankle arthrodesis Current visit: Yes Status: Acute Category: Surgical Code(s): Z98.1 - Arthrodesis status (2) Closed trimalleolar fracture of left ankle Current visit: No Status: Acute Qualifiers: Category: Medical Code(s): S82.852A - Displaced trimalleolar fracture of left lower leg, initial encounter for closed fracture - Assessment and plan all Dx Assessment and Plan for all problems:: Patient has developed some postoperative anemia. I am awaiting CBC this morning. If her H&H is declined further she will likely need transfusion of packed red blood cells. If H&H has stabilized she will be discharged home. Initial plan had been for patient to discharge to longterm facility. We have discovered several issues at our obstacles in this situation. Local longterm facility not have a contract with this patient's insurance. Second patient's insurance requires a daily co-pay for any services provided through a longterm ability. Patient does not have the funds to pay a daily co-pay if she goes to longterm facility. Therefore she has to to return home and is able to help
[2018-06-18 07:17] LABS: Basophils % 0.3 % (0.1-2.0); Eosinophils # 0.3 K/mm3 (0.0-0.4); Lymphocytes # 2.2 K/mm3 (0.7-4.5); Lymphocytes % 23.2 % (10-50); Mean Corpuscular HGB Conc 31.7 g/dL (31.8-35.4); Mean Corpuscular Hemoglobin 28.6 pg (27.0-31.2); Mean Corpuscular Volume 90.1 fl (81-99); Mean Platelet Volume 7.5 fl (7.4-10.4); Monocytes # 0.6 K/mm3 (0.1-1.0); Monocytes % 6.5 % (1.7-9.3); Neutrophils # 6.5 K/mm3 (1.8-7.8); Neutrophils % 66.9 % (37.0-80.0); Platelet Count 263 K/mm3 (142-424); Red Blood Count 3.22 M/mm3 (4.20-5.40); White Blood Count 9.6 K/mm3 (4.8-10.8)
[2018-06-18 07:42] LABS: Hemoglobin 9.2 g/dL (12.2-16.2)
--- NOTE | 2018-06-19 07:32 | Discharge Summary ---
General - General Admission date:: 06/16/18 Discharge date: 06/18/18 HPI HPI: 58-year-old female admitted to the hospital on June 16 postoperatively after undergoing left ankle fusion by Dr. Cortes. Patient had had a prior left trimalleolar fracture with malunion and development of severe osteoarthritis causing chronic pain. Patient underwent surgery successfully on the and was admitted postoperatively for observation and pain control. Patient did well postoperatively. She had one episode of hypotension that was rather strange as her blood pressure had been running high throughout the day and on the afternoon of the was checked on routine monitoring with systolic being in the 60s. CBC was performed which showed a drop in the patient's hemoglobin and she was given a 1 L fluid bolus. This brought the patient's blood pressure back up and she had no further problems. During her episode of hypotension she remained alert and oriented with no signs of cerebral hypoperfusion. initial plan had been to find a correction facility for the patient to rehabilitate in because the patient lived alone and she would be nonweightbearing at home and she had expressed some concerns about her ability to live independently. The da y after admission a physical therapy and Occupational Therapy consult was obtained and search for correction facility was begun. It was discovered that patient's insurance would require a co-pay to any facility she would be transferred to. Patient admitted she did not have the appropriate finances to be able to afford a daily co-pay at a correction facility so she opted to return home with home health. On the she was discharged home. She will follow-up with Dr. Cortes in 1 week Objective Vital signs: Temp Pulse Resp BP Pulse Ox 97.8 F 105 H 18 178/91 H 92 L 06/18/18 08:00 06/18/18 08:00 06/18/18 08:00 06/18/18 08:00 06/18/18 08:00 Results Labs on day of discharge: Labs from last 24 hours 06/18/18 06:30 Hgb 9.2 L D DS: Diagnosis - Discharge Diagnosis (1) S/P ankle arthrodesis Status: Acute (2) Closed trimalleolar fracture of left ankle Status: Acute Problem details: With malunion (3) Osteoarthritis of left ankle Status: Acute (4) Closed displaced trimalleolar fracture of left ankle with malunion Status: Acute (5) Postoperative anemia due to acute blood loss Status: Acute (6) Synovitis of left ankle Status: Acute Discharge Plan - Patient Discharge Instructions ACTIVITY: Continue current activity DIET: continue same diet Patient Instructions: Ankle Fracture - Follow up Plan Follow up with: Jelena Graham DPM [Staff Physician] - 1 week Disposition: Home, Self-Nursing Home Medications: Home Medications Medication Instructions Recorded Confirmed Type Duloxetine HCl 60 mg PO DAILY 01/28/18 06/16/18 History Gabapentin [Neurontin 600mg 1,200 mg PO TID 01/28/18 06/16/18 History tablet] Quetiapine Fumarate 100 mg PO DAILY 01/28/18 06/16/18 History Temazepam [Restoril 30mg capsule] 30 mg PO HSP PRN 01/28/18 06/17/18 History Tizanidine HCl [Zanaflex 4mg 6 mg PO TIDP PRN 01/28/18 06/16/18 History tablet] albuterol sulfate 2.5 mg/3 mL 3 ml IH TID 20 Days #180 01/29/18 06/16/18 History (0.083 %) solution for nebulization aspirin 81 mg tablet,delayed 81 mg PO DAILY 01/29/18 06/16/18 History release budesonide-formoterol HFA 160 2 puff INHALATION BID 30 Days #10 01/29/18 06/16/18 History mcg-4.5 mcg/actuation aerosol inhaler Cetirizine HCl [Zyrtec] 10 mg PO DAILY 04/21/18 06/16/18 History Losartan/Hydrochlorothiazide 1 tab PO DAILY 04/21/18 06/16/18 History [Losartan-Hctz 100-25 mg Tab] Metoprolol Succinate 50 mg PO DAILY 04/21/18 06/16/18 History Amlodipine Besylate [Norvasc 5mg 5 mg PO DAILY 06/15/18 06/16/18 History tablet] ibuprofen 800 mg tablet 800 mg PO BID #60 tab 06/15/18 06/16/18 Rx ondansetron 4 mg disintegrating 4 mg PO Q6H #30 tab 06/15/18 06/16/18 Rx tablet cephALEXin [Keflex 500mg Cap] 500 mg PO Q12H 06/16/18 06/16/18 History Cholecalciferol (Vitamin D3) 50,000 unit PO WEEKLY 06/17/18 06/17/18 History [Vitamin D3 50,000 unit Cap] Oxycodone HCl/Acetaminophen 1 each PO Q4HP PRN #45 tablet 06/18/18 Rx [Percocet 7.5-325 mg Tablet] Prescriptions/Medication Reconciliation: New Oxycodone HCl/Acetaminophen [Percocet 7.5-325 mg Tablet] 1 each PO Q4HP PRN #45 tablet PRN Reason: Moderate To Severe Pain Continue budesonide-formoterol HFA 160 mcg-4.5 mcg/actuation aerosol inhaler 2 puff INHALATION BID 30 Days #10 ibuprofen 800 mg tablet 800 mg PO BID #60 tab ondansetron 4 mg disintegrating tablet 4 mg PO Q6H #30 tab aspirin 81 mg tablet,delayed release 81 mg PO DAILY albuterol sulfate 2.5 mg/3 mL (0.083 %) solution for nebulization 3 ml IH TID 20 Days #180 Tizanidine HCl [Zanaflex 4mg tablet] 6 mg PO TIDP PRN PRN Reason: MUSCLE SPASMS Temazepam [Restoril 30mg capsule] 30 mg PO HSP PRN PRN Reason: Sleep Quetiapine Fumarate 100 mg PO DAILY Gabapentin [Neurontin 600mg tablet] 1,200 mg PO TID Duloxetine HCl 60 mg PO DAILY Losartan/Hydrochlorothiazide [Losartan-Hctz 100-25 mg Tab] 1 tab PO DAILY Metoprolol Succinate 50 mg PO DAILY Cetirizine HCl [Zyrtec] 10 mg PO DAILY Amlodipine Besylate [Norvasc 5mg tablet] 5 mg PO DAILY cephALEXin [Keflex 500mg Cap] 500 mg PO Q12H Cholecalciferol (Vitamin D3) [Vitamin D3 50,000 unit Cap] 50,000 unit PO WEEKLY
== END 2018-06-18 11:34 | disposition home or self-care (01) ==
LOC: 2ND 09:50 → OR 09:50
PROVIDERS: ADMIT Family Medicine; ATTEND Family Medicine
DX: M19.172 Post-traumatic osteoarthritis, left ankle and foot; T84.84XA Pain due to internal orthopedic prosthetic devices, implants and grafts, initial encounter; Z88.8 Allergy status to other drugs, medicaments and biological substances; I10 Essential (primary) hypertension; Z79.899 Other long term (current) drug therapy; S82.852P Displaced trimalleolar fracture of left lower leg, subsequent encounter for closed fracture with malunion; Z72.0 Tobacco use
CPT/HCPCS: 36415; 73600; 73610; 76000; 81001; 82962; 85025; 96374; 97161; 97165; C1713; C1762; C1776; G0378; J2405

== ENCOUNTER → 2018-06-29 13:37 | Outpatient (CLI) | payer MEDICARE, MEDICAID, SELFPAY ==
[2018-06-29 14:07] LABS: Basophils % 0.3 % (0.1-2.0); Eosinophils # 0.1 K/mm3 (0.0-0.4); Eosinophils % 1.1 % (0.1-12.0); Hematocrit 26.9 % (37.0-47.0); Hemoglobin 8.5 g/dL (12.2-16.2); Lymphocytes # 1.3 K/mm3 (0.7-4.5); Lymphocytes % 14.6 % (10-50); Mean Corpuscular HGB Conc 31.5 g/dL (31.8-35.4); Mean Corpuscular Hemoglobin 27.7 pg (27.0-31.2); Mean Corpuscular Volume 87.9 fl (81-99); Mean Platelet Volume 7.7 fl (7.4-10.4); Monocytes # 0.4 K/mm3 (0.1-1.0); Monocytes % 4.1 % (1.7-9.3); Neutrophils # 6.9 K/mm3 (1.8-7.8); Neutrophils % 79.8 % (37.0-80.0); Platelet Count 375 K/mm3 (142-424); Red Blood Count 3.07 M/mm3 (4.20-5.40); Red Cell Distribution Width 14.1 % (11.5-17.5); White Blood Count 8.7 K/mm3 (4.8-10.8)
[2018-06-29 14:49] LABS: Erythrocyte Sedimentation Rate > 120 mm/hr (0-30)
[2018-06-29 15:12] LABS: Alanine Aminotransferase 21 U/L (12-78); Albumin/Globulin Ratio 0.8 (1.1-1.8); Alkaline Phosphatase 147 U/L (46-116); Anion Gap 12.8 mEq/L (5-15); Aspartate Amino Transferase 19 U/L (15-37); Bilirubin,Total 0.4 mg/dL (0.2-1.0); Blood Urea Nitrogen 11 mg/dL (7-18); Calcium 8.9 mg/dL (8.5-10.1); Carbon Dioxide 32 mmol/L (21.0-32.0); Chloride 99 mmol/L (98-107); Creatinine,Serum 1.16 mg/dL (0.55-1.02); Estimated Glomerular Filt Rate 48 ml/min (>60); GFR (African American) 58 ML/MIN (>60); Globulin 3.6 gm/dl (1.3-3.2); Glucose 105 mg/dL (74-106); Potassium 3.8 mmoL/L (3.5-5.1); Sodium 140 mmol/L (136-145); Total Protein,Serum 6.6 gm/dL (6.4-8.2)
[2018-06-29 15:32] LABS: C-Reactive Protein 21.2 mg/L (0.0-0.9)
== END ==
PROVIDERS: Visit Provider Podiatrist
DX: Z98.890 Other specified postprocedural states (principal); D62 Acute posthemorrhagic anemia
CPT/HCPCS: 36415; 80053; 85025; 85651; 86140; 87070; 87077; 87186; 87205

== ENCOUNTER → 2018-07-02 10:44 | Outpatient (CLI) | payer MEDICARE, MEDICAID, SELFPAY ==
--- NOTE | 2018-07-02 10:50 | XR_ITS ---
XR ankle wt bearing LT min 3V HISTORY: Follow-up surgery/ankle fusion ITS.REASON: postop views ORDERING PHYSICIAN: Jelena Graham DPM PATIENT AGE: 58 years Comparison: None FINDINGS: There has been interval placement of an anterior L shaped bone plate along the distal tibia with screws into the distal tibia and a right angle at the talus 2 screws within the talus from the bone plate. One screw is present now within the distal tibia and fibula directed from the lateral approach. There is an Ilizarov external fixator device present fixated proximally at the tibia with 2 pins in the mid aspect in the distal tibia also with 2 pins and into the mid aspect of the foot. The distal 2 fixator pins are not well demonstrated. There is good alignment. There remains good alignment with no obvious orthopedic complications. IMPRESSION: Good alignment status post arthrodesis of the ankle as detailed above with external fixator in place
--- NOTE | 2018-07-02 10:50 | XR_ITS ---
XR foot wt bearing LT 3V HISTORY: Follow-up surgery/ankle fusion ITS.REASON: postop views ORDERING PHYSICIAN: Jelena Graham DPM PATIENT AGE: 58 years Comparison: None FINDINGS: There has been placement of an anterior L shaped bone plate along the distal tibia with screws into the distal tibia and a right angle at the talus 2 screws within the talus from the bone plate. One screw is present now within the distal tibia and fibula directed from the lateral approach. There is an Ilizarov external fixator device present fixated proximally at the tibia with 2 pins in the mid aspect in the distal tibia also with 2 pins and into the mid aspect of the foot. The distal 2 fixator pins are not well demonstrated. There is good alignment. Multiple lucencies noted at the distal tibia and fibula from old ORIF There remains good alignment with no obvious orthopedic complications. IMPRESSION: Good alignment status post arthrodesis of the ankle as detailed above with external fixator in place
--- NOTE | 2018-07-02 10:50 | XR_ITS ---
XR tibia fibula LT 2V HISTORY: Follow-up surgery/ankle fusion ITS.REASON: postop views ORDERING PHYSICIAN: Jelena Graham DPM PATIENT AGE: 58 years Comparison: None FINDINGS: There has been interval placement of an anterior L shaped bone plate along the distal tibia with screws into the distal tibia and a right angle at the talus 2 screws within the talus from the bone plate. One screw is present now within the distal tibia and fibula directed from the lateral approach. There is an Ilizarov external fixator device present fixated proximally at the tibia with 2 pins in the mid aspect in the distal tibia also with 2 pins and into the mid aspect of the foot. The distal 2 fixator pins are not well demonstrated. There is good alignment. There remains good alignment with no obvious orthopedic complications. Multiple lucencies noted through the distal tibia and fibula from prior ORIF IMPRESSION: Good alignment status post arthrodesis of the ankle as detailed above with external fixator in place
== END ==
PROVIDERS: PCP Family Medicine; Visit Provider Podiatrist
DX: S82.852A Displaced trimalleolar fracture of left lower leg, initial encounter for closed fracture (principal); T81.41XA Infection following a procedure, superficial incisional surgical site, initial encounter
CPT/HCPCS: 73590; 73610; 73630

== ENCOUNTER → 2018-07-09 11:37 | Outpatient (CLI) | payer MEDICARE, MEDICAID, SELFPAY ==
[2018-07-09 12:51] LABS: Basophils # 0.1 K/mm3 (0-0.2); Basophils % 0.6 % (0.1-2.0); Eosinophils # 0.4 K/mm3 (0.0-0.4); Eosinophils % 4.5 % (0.1-12.0); Hematocrit 34.9 % (37.0-47.0); Hemoglobin 10.4 g/dL (12.2-16.2); Lymphocytes # 1.8 K/mm3 (0.7-4.5); Lymphocytes % 23.5 % (10-50); Mean Corpuscular HGB Conc 29.7 g/dL (31.8-35.4); Mean Corpuscular Volume 90.9 fl (81-99); Mean Platelet Volume 7.3 fl (7.4-10.4); Monocytes # 0.4 K/mm3 (0.1-1.0); Monocytes % 5.1 % (1.7-9.3); Neutrophils # 5.1 K/mm3 (1.8-7.8); Neutrophils % 66.3 % (37.0-80.0); Platelet Count 461 K/mm3 (142-424); Red Blood Count 3.84 M/mm3 (4.20-5.40); Red Cell Distribution Width 14.5 % (11.5-17.5); White Blood Count 7.7 K/mm3 (4.8-10.8)
[2018-07-09 14:01] LABS: Erythrocyte Sedimentation Rate 75 mm/hr (0-30)
[2018-07-09 14:42] LABS: Anion Gap 15.8 mEq/L (5-15); Blood Urea Nitrogen 21 mg/dL (7-18); C-Reactive Protein 4.3 mg/L (0.0-0.9); Calcium 8.6 mg/dL (8.5-10.1); Carbon Dioxide 28 mmol/L (21.0-32.0); Chloride 100 mmol/L (98-107); Creatinine,Serum 2.59 mg/dL (0.55-1.02); Estimated Glomerular Filt Rate 19 ml/min (>60); GFR (African American) 23 ML/MIN (>60); Glucose 68 mg/dL (74-106); Potassium 3.8 mmoL/L (3.5-5.1); Sodium 140 mmol/L (136-145)
== END ==
PROVIDERS: Visit Provider Podiatrist
DX: T81.40XA Infection following a procedure, unspecified, initial encounter (principal)
CPT/HCPCS: 36415; 80048; 85025; 85651; 86140

== ENCOUNTER 2018-07-10 23:02 | Observation (INO) ==
[2018-07-10 23:36] LABS: Microscopic, Urine URINE MICROSCOPIC (MICROSCOPIC)
[2018-07-10 23:37] LABS: Basophils # 0.1 K/mm3 (0-0.2); Basophils % 0.6 % (0.1-2.0); Eosinophils # 0.7 K/mm3 (0.0-0.4); Lymphocytes # 2.4 K/mm3 (0.7-4.5); Lymphocytes % 21.1 % (10-50); Mean Corpuscular HGB Conc 30.9 g/dL (31.8-35.4); Mean Corpuscular Hemoglobin 28.2 pg (27.0-31.2); Mean Corpuscular Volume 91.3 fl (81-99); Mean Platelet Volume 7.2 fl (7.4-10.4); Monocytes # 0.6 K/mm3 (0.1-1.0); Monocytes % 5.1 % (1.7-9.3); Neutrophils # 7.5 K/mm3 (1.8-7.8); Neutrophils % 67.2 % (37.0-80.0); Platelet Count 401 K/mm3 (142-424); Red Blood Count 3.18 M/mm3 (4.20-5.40); Red Cell Distribution Width 14.7 % (11.5-17.5); White Blood Count 11.1 K/mm3 (4.8-10.8)
[2018-07-10 23:41] LABS: Hematocrit 29.1 % (37.0-47.0)
[2018-07-10 23:41] LABS: Appearance,Urine CLEAR (Clear); Bilirubin,Urine Negative (Negative); Blood, Urine Negative (Negative); Color,Urine YELLOW (Yellow); Glucose,Urine (UA) Negative (Negative); Ketones,Urine Negative (Negative); Leukocyte Esterase,Urine Negative (Negative); Protein,Urine Negative (Negative); Specific Gravity, Urine 1.025 (1.005-1.030); Urobilinogen,Urine 0.2 EU/dl (0.2)
[2018-07-10 23:43] LABS: Amorphous Sediment,Urine 1+ /lpf; WBC,Urine Occasional #/hpf (0-3)
[2018-07-10 23:47] LABS: Albumin/Globulin Ratio 0.9 (1.1-1.8); Bilirubin,Total 0.3 mg/dL (0.2-1.0); Calcium 8.4 mg/dL (8.5-10.1); Globulin 3.5 gm/dl (1.3-3.2); Total Protein,Serum 6.5 gm/dL (6.4-8.2)
[2018-07-10 23:48] LABS: Amphetamine/Metha Screen,Urine Negative ng/mL (<1000); Barbiturates Screen,Urine Negative ng/mL (<200); Benzodiazepines Screen,Urine Positive ng/mL (<200); Cannabinoid Screen,Urine Negative ng/mL (<50); Cocaine Screen,Urine Negative ng/mL (<300); Methadone Screen,Urine Negative ng/mL (<300); Opiate Screen,Urine Positive ng/mL (<300); Phencyclidine Screen,Urine Negative ng/mL (<25)
--- NOTE | 2018-07-11 00:08 | Emergency Department Note ---
ED Disposition Clinical Impression: Vasovagal episode Renal failure (ARF), acute on chronic Qualifiers: Acute renal failure type: unspecified Chronic kidney disease stage: unspecified stage Qualified Code(s): N17.9 - Acute kidney failure, unspecified; N18.9 - Chronic kidney disease, unspecified Anemia Qualifiers: Anemia type: unspecified type Qualified Code(s): D64.9 - Anemia, unspecified Disposition: Admitted as Observation Condition on Discharge: Good Referrals: Provider,Referral, [Referring] - - Critical Care Critical Care Time: No Attestation: On 07/10/18, the high probability of a clinically significant, sudden or life threatening deterioration of the following system(s) required my full and direct attention, intervention and personal management. The time I documented below is in addition to time spent performing reported procedures but includes the following listed in this critical care notation. Medical Decision Making - Medical Records Medical records reviewed: Yes: I reviewed the patient's medical records. - William Inquiry Pt receiving controlled substance: No Vital Signs: 07/10/18 23:04 07/10/18 23:31 07/10/18 23:54 Temperature 98.1 F Temperature Source Oral Pulse Rate [Right Brachial] 58 L 53 L 50 L Respiratory Rate 18 16 16 Blood Pressure [Right Arm] 79/40 L 81/46 L 87/36 L Blood Pressure Mean [Right Arm] 53 57 53 Blood Pressure Source [Right Arm] Manual Cuff/ Auscultation Automatic Cuff Blood Pressure Position [Right Arm] Sitting 02 Sat by Pulse Oximetry 98 98 98 Oxygen Delivery Method Nasal Cannula Nasal Cannula Room Air Oxygen Flow Rate (LPM) 2 07/10/18 23:56 07/11/18 00:41 07/11/18 01:39 Temperature Temperature Source Pulse Rate [Right Brachial] 56 L 56 L 55 L Respiratory Rate 16 12 16 Blood Pressure [Right Arm] 101/66 L 90/54 L 100/55 L Blood Pressure Mean [Right Arm] 77 66 70 Blood Pressure Source [Right Arm] Automatic Cuff Manual Cuff/ Auscultation Blood Pressure Position [Right Arm] Sitting 02 Sat by Pulse Oximetry 98 95 100 Oxygen Delivery Method Nasal Cannula Nasal Cannula Nasal Cannula Oxygen Flow Rate (LPM) 2 2 2 - Lab Data Lab results reviewed: Yes: I reviewed the patient's lab results. Lab Results 07/10/18 23:23: WBC 11.1 H D, RBC 3.18 L, Hgb 9.0 L, Hct 29.1 L, MCV 91.3, MCH 28.2, MCHC 30.9 L, RDW 14.7, Plt Count 401, MPV 7.2 L, Neut % (Auto) 67.2, Lymph % (Auto) 21.1, [place] % (Auto) 5.1, Eos % (Auto) 6.0, Baso % (Auto) 0.6, Neut # (Auto) 7.5, Lymph # (Auto) 2.4, [place] # (Auto) 0.6, Eos # (Auto) 0.7 H, Baso # (Auto) 0.1 07/10/18 23:23: Sodium 137, Potassium 4.0, Chloride 101, Carbon Dioxide 24, Anion Gap 16.0 H, BUN 35 H D, Creatinine 3.50 H D, Estimated Creat Clear 25, Estimated GFR 13 L*, Est GFR ( Amer) 16 L* D, Glucose 108 H, Calcium 8.4 L, Total Bilirubin 0.3, AST 30, ALT 15, Alkaline Phosphatase 107, Total Protein 6.5, Albumin 3.0 L, Globulin 3.5 H, Albumin/Globulin Ratio 0.9 L 07/10/18 23:32: Urine Color Yellow, Urine Appearance Clear, Urine pH 6.0, Ur Specific [place] 1.025, Urine Protein Negative, Urine Glucose (UA) Negative, Urine Ketones Negative, Urine Blood Negative, Urine Nitrate Negative, Urine Bilirubin Negative, Urine Urobilinogen 0.2, Ur Leukocyte Esterase Negative, Urine WBC Occasional, Ur Squamous Epith Cells 5-10, Amorphous Sediment 1+ 07/10/18 23:32: Urine Opiates Screen Positive H, Urine Methadone Screen Negative, Ur Barbituates Screen Negative, Ur Phencyclidine Scrn Negative, Ur Amphetamines Screen Negative, U Benzodiazepines Scrn Positive H, Urine Cocaine Screen Negative, U Marijuana (THC) Screen Negative Result diagrams: 07/10/18 23:23 07/10/18 23:23 Orders (Tests/Meds): ED MEDICATIONS Generic Name Dose Route Start Last Admin Trade Name Freq PRN Reason Stop Dose Admin Sodium Chloride 1,000 mls @ 999 mls/hr 07/10/18 23:45 07/10/18 23:35 Sod Chlor 0.9% 1000ml Bag IV 07/11/18 00:45 999 mls/hr .Q1H1M MARLENE Administration Sodium Chloride 10 ml 07/10/18 23:26 Saline Flush 10ml Syringe IV 08/09/18 23:25 NEEDED PRN Maintain IV Site ORDERS Category Date Time Status CT cervical spine wo con Stat Cat Scan 07/11/18 00:[address] head/brain wo con Stat Cat Scan 07/10/18 23:26 Taken XR chest portable Stat Exams 07/11/18 00:01 Taken XR pelvis 1-2V Stat Exams 07/11/18 00:01 Taken Urinalysis and Microscopic Stat Lab 07/10/18 23:32 Ordered - Radiology Data #1 Image(s): Chest, Pelvis Image Reviewed: Yes I reviewed the patient's radiology image Preliminary Findings: No Fracture Seen - CT Data CT Scan: Head, C-Spine Time Received: 02:[address] Reviewed: Yes: I have viewed the radiologist's interpretation Preliminary Findings: No Fracture Seen - ECG Data Tracing #1 Arrhythmias present: sinus rosetta Ischemic changes: non-specific ST-T wave changes - Physician Consults Physician Consulted: jaquan Reason -: Admission Fall HPI - General Chief Complaint: Fall Stated Complaint: Fall Time Seen by Provider: 07/10/18 23:30 Mode of Arrival: EMS Source of Information: Patient, Relative, EMS, Medical Record Limitations: No Limitations Description of Symptoms (Recalled from ER Triage Doc. by RN): Pt was found in the floor by her roommate. She states she just feel. She had recent sx on her left ankle, and is on several meds, she took some zanaflex before falling. She states thats whats happens to her when she takes it. She has no new pain at this time, she states her left lower leg but that is from the sx. - History of Present Illness HPI Narrative: pt with episode of syncope as she was dizzy - no chest pain and no neuro sx- she has halo on lt ankle - she reports being compliant with meds MD complaint: fall Onset (ago): hour(s) Fall from: standing Fall witnessed: no Place fall occurred: home Loss of consciousness: none Prolonged down time: no Symptoms prior to fall: lightheadedness Context: tripped/slipped Location of injury: head, neck Severity: moderate Associated symptoms (after fall): denies - Related Data Home Medications Medication Instructions Recorded Confirmed Duloxetine HCl 60 mg PO DAILY 01/28/18 07/10/18 Gabapentin [Neurontin 600mg 1,200 mg PO TID 01/28/18 07/10/18 tablet] Quetiapine Fumarate 100 mg PO DAILY 01/28/18 07/10/18 Temazepam [Restoril 30mg capsule] 30 mg PO HSP PRN 01/28/18 07/10/18 Tizanidine HCl [Zanaflex 4mg 6 mg PO TIDP PRN 01/28/18 07/10/18 tablet] albuterol sulfate 2.5 mg/3 mL 3 ml IH TID 20 Days #180 01/29/18 07/10/18 (0.083 %) solution for nebulization aspirin 81 mg tablet,delayed 81 mg PO DAILY 01/29/18 07/10/18 release budesonide-formoterol HFA 160 2 puff INHALATION BID 30 Days #10 01/29/18 07/10/18 mcg-4.5 mcg/actuation aerosol inhaler Cetirizine HCl [Zyrtec] 10 mg PO DAILY 04/21/18 07/10/18 Losartan/Hydrochlorothiazide 1 tab PO DAILY 04/21/18 07/10/18 [Losartan-Hctz 100-25 mg Tab] Metoprolol Succinate 50 mg PO DAILY 04/21/18 07/10/18 Amlodipine Besylate [Norvasc 5mg 5 mg PO DAILY 06/15/18 07/10/18 tablet] cephALEXin [Keflex 500mg Cap] 500 mg PO Q12H 06/16/18 07/10/18 Cholecalciferol (Vitamin D3) 50,000 unit PO WEEKLY 06/17/18 07/10/18 [Vitamin D3 50,000 unit Cap] oxycodone-acetaminophen 10 mg-325 10 mg PO NEEDED PRN 8 Days #30 07/09/18 07/10/18 mg tablet tab Previous Rx's Medication Instructions Recorded ibuprofen 800 mg tablet 800 mg PO BID #60 tab 06/15/18 ondansetron 4 mg disintegrating 4 mg PO Q6H #30 tab 06/15/18 tablet ciprofloxacin 500 mg tablet 500 mg PO BID 14 Days #28 tab 06/29/18 clindamycin HCl 300 mg capsule 300 mg PO TID 21 Days #63 cap 07/09/18 Allergies Allergy/AdvReac Type Severity Reaction Status Date / Time methadone [METHADONE] Allergy Severe S-DIFF. Verified 07/09/18 10:24 BREATHING morphine [MORPHINE] Allergy Intermediate I-RASH Verified 07/09/18 10:24 amitriptyline [From ELAVIL] Allergy Mild Verified 07/09/18 10:24 [facility] History - Hepatitis A Screen Drug use history?: No High risk sexual behaviors?: No History of sexually transmitted infection?: No Currently employed?: No Childcare worker?: No Do you have indoor plumbing?: Yes Do you have electricity?: Yes Attestation statement:: This patient has been screened for Hepatitis A risk factors. I have reviewed the patient's past medical history: Yes Medical History: Reports:: Anxiety, Asthma, Depression, Hypertension Denies:: Cancer, Diabetes Mellitus Type 1, Diabetes Mellitus Type 2, MRSA, Seizures Other Medical History: Reports: Arthritis, Fibromyalgia, Hoarseness, Sinus Problems, Other. Denies: Blood Transfusion Reaction Laterality Cases: Left: Other, Bilateral: Carpal Tunnel Release Other Surgeries: Yes: Appendectomy, Colonoscopy, , EGD, Hysterectomy-Total, Other Amputation: No Fractures: Yes Comment: bladder tuck, spinal cord stimulator, fundoplication, Left Foot Surgery 2018 - Social History Smoking Status: Current every day smoker Tobacco Type: e-cigarettes # Packs/Day (cigarettes): 1 #Yrs smoked (if former smoker): 20 Alcohol Intake: never Alcohol Intake Frequency:: other Substance Use Type: denies use Occupational Status: disabled Housing: apartment Household Members: none - Psychiatric History Expresses thoughts of harming self/others: None Suicide Plan Description: No Plan Pschychiatric History:: Reports:: Anxiety, Depression Family Hx:: Cancer, Heart Attack, Hyperlipidemia, Hypertension, Asthma ROS Obtained: Yes All systems reviewed & no additional complaints - Constitutional Constitutional: Denies fever(s), Reports weakness - Eyes Eyes: Denies change in vision - ENT Ears, Nose, Mouth, and Throat: Denies sore throat - Cardiovascular Cardiovascular: Denies chest pain - Respiratory Respiratory: No cough - Gastrointestinal Gastrointestingal: Denies: abdominal pain - Genitourinary Female Genitourinary: Denies flank pain, Denies hematuria - Musculoskeletal Musculoskeletal: Reports joint pain, Denies neck pain - Integumentary/Breasts Skin/Breast: Denies rash - Neurologic Neurologic: Denies headache(s), Denies seizure-like activity Physical Exam - General General appearance: alert - Head Head exam: normocephalic - Eye Eye exam: Present: PERRL, EOMI - ENT ENT exam: Present: mucous membranes dry - Neck Neck exam: Present: trachea midline - Respiratory Respiratory exam: Present: normal lung sounds bilaterally. Absent: respiratory distress - Cardiovascular Cardiovascular exam: Present: regular rate, systolic murmur - Abdominal Exam Abdominal exam: Present: soft - Extremities Exam Extremities exam: Present: other (halo on lt ankle ) - Neurological Exam Neurological exam: Present: alert, CN II-XII intact - Psychiatric Psychiatric exam: Present: normal affect - Skin Skin exam: Absent: rash
--- NOTE | 2018-07-11 07:20 | History & Physical Report ---
*Admission Date: 07/11/18 *Chief complaint: Weakness *History of present illness: 58-year-old female with recent surgery for left ankle fusion presented to the emergency department after experiencing dizziness and lightheadedness at home that led to a fall. In the emergency department patient was hypotensive upon presentation with sluggish mental status. She was given IV fluids for her hypotension but also found to have acute kidney injury with significant increase in creatinine above baseline. Patient was admitted for further IV antibiotics. Upon interviewing the patient this morning she is somnolent. She can awaken for brief periods of time to answer questions. She is oriented to person and place. She denies fevers. She denies use of NSAIDs although ibuprofen is listed as a home medication. She denies chills at home. She claims she has been told she can bear weight on the left ankle and foot. Nursing staff reports a pill count on the patient's narcotic was an accurate and suggested that the patient has been taking too much of her narcotic. [facility] History I have reviewed the patient's past medical history: Yes Medical History: Reports:: Anxiety, Asthma, Depression, Hypertension Denies:: Cancer, Diabetes Mellitus Type 1, Diabetes Mellitus Type 2, MRSA, Seizures Have you ever received a pneumonia vaccine?: Yes Have you received a flu vaccine this season?: Yes Other Medical History: Reports: Arthritis, Fibromyalgia, Hoarseness, Sinus Problems, Other. Denies: Blood Transfusion Reaction Laterality Cases: Left: Other, Bilateral: Carpal Tunnel Release Other Surgeries: Yes: Appendectomy, Colonoscopy, , EGD, Hysterectomy- Total, Other Amputation: No Fractures: Yes - *Social History Educational Level: Attended High School Smoking Status: Current every day smoker Tobacco Type: cigarettes # Packs/Day (cigarettes): 1 #Yrs smoked (if former smoker): 20 Alcohol Intake: never Alcohol Intake Frequency:: other Substance Use Type: denies use Occupational Status: disabled Housing: apartment Household Members: none Travel in the last 8 weeks: None - Psychiatric History Expresses thoughts of harming self/others: None Suicide Plan Description: No Plan Pschychiatric History:: Reports:: Anxiety, Depression *Family Hx:: Cancer, Heart Attack, Hyperlipidemia, Hypertension, Asthma Review of Systems - Review of Systems Review of systems:: unable to obtain - *Neurologic Reports weakness, Denies headache(s), Denies seizure-like activity Meds Home Medications Medication Instructions Recorded Confirmed Type Duloxetine HCl 60 mg PO DAILY 01/28/18 07/10/18 History Gabapentin [Neurontin 600mg 1,200 mg PO TID 01/28/18 07/10/18 History tablet] Quetiapine Fumarate 100 mg PO DAILY 01/28/18 07/10/18 History Temazepam [Restoril 30mg capsule] 30 mg PO HSP PRN 01/28/18 07/10/18 History Tizanidine HCl [Zanaflex 4mg 6 mg PO TIDP PRN 01/28/18 07/10/18 History tablet] albuterol sulfate 2.5 mg/3 mL 3 ml IH TID 20 Days #180 01/29/18 07/10/18 History (0.083 %) solution for nebulization aspirin 81 mg tablet,delayed 81 mg PO DAILY 01/29/18 07/10/18 History release budesonide-formoterol HFA 160 2 puff INHALATION BID 30 Days #10 01/29/18 07/10/18 History mcg-4.5 mcg/actuation aerosol inhaler Cetirizine HCl [Zyrtec] 10 mg PO DAILY 04/21/18 07/10/18 History Losartan/Hydrochlorothiazide 1 tab PO DAILY 04/21/18 07/10/18 History [Losartan-Hctz 100-25 mg Tab] Metoprolol Succinate 50 mg PO DAILY 04/21/18 07/10/18 History Amlodipine Besylate [Norvasc 5mg 5 mg PO DAILY 06/15/18 07/10/18 History tablet] ibuprofen 800 mg tablet 800 mg PO BID #60 tab 06/15/18 07/10/18 Rx ondansetron 4 mg disintegrating 4 mg PO Q6H #30 tab 06/15/18 07/09/18 Rx tablet cephALEXin [Keflex 500mg Cap] 500 mg PO Q12H 06/16/18 07/10/18 History Cholecalciferol (Vitamin D3) 50,000 unit PO WEEKLY 06/17/18 07/10/18 History [Vitamin D3 50,000 unit Cap] ciprofloxacin 500 mg tablet 500 mg PO BID 14 Days #28 tab 06/29/18 07/10/18 Rx clindamycin HCl 300 mg capsule 300 mg PO TID 21 Days #63 cap 07/09/18 07/10/18 Rx oxycodone-acetaminophen 10 mg-325 10 mg PO NEEDED PRN 8 Days #30 07/09/18 07/10/18 History mg tablet tab Ondansetron HCl [Ondansetron 4mg 4 mg PO Q8HP PRN 07/11/18 07/11/18 History Tablet] Valsartan/Hydrochlorothiazide 1 each PO DAILY 07/11/18 07/11/18 History [Valsartan-Hctz 160-12.5 mg Tab] Allergies Allergy/AdvReac Type Severity Reaction Status Date / Time methadone [METHADONE] Allergy Severe S-DIFF. Verified 07/09/18 10:24 BREATHING morphine [MORPHINE] Allergy Intermediate I-RASH Verified 07/09/18 10:24 amitriptyline [From ELAVIL] Allergy Mild Verified 07/09/18 10:24 Exam Vital signs and Labs for Last 24 Hours: Temp Pulse Resp BP Pulse Ox 97.5 F L 58 L 20 102/56 L 99 07/11/18 04:26 07/11/18 04:26 07/11/18 04:26 07/11/18 04:26 07/11/18 04:26 Laboratory Results - last 24 hr 07/10/18 23:23: WBC 11.1 H D, RBC 3.18 L, Hgb 9.0 L, Hct 29.1 L, MCV 91.3, MCH 28.2, MCHC 30.9 L, RDW 14.7, Plt Count 401, MPV 7.2 L, Neut % (Auto) 67.2, Lymph % (Auto) 21.1, [place] % (Auto) 5.1, Eos % (Auto) 6.0, Baso % (Auto) 0.6, Neut # (Auto) 7.5, Lymph # (Auto) 2.4, [place] # (Auto) 0.6, Eos # (Auto) 0.7 H, Baso # (Auto) 0.1 07/10/18 23:23: Sodium 137, Potassium 4.0, Chloride 101, Carbon Dioxide 24, Anion Gap 16.0 H, BUN 35 H D, Creatinine 3.50 H D, Estimated Creat Clear 25, Estimated GFR 13 L*, Est GFR ( Amer) 16 L* D, Glucose 108 H, Calcium 8.4 L, Total Bilirubin 0.3, AST 30, ALT 15, Alkaline Phosphatase 107, Total Protein 6.5, Albumin 3.0 L, Globulin 3.5 H, Albumin/Globulin Ratio 0.9 L 07/10/18 23:32: Urine Color Yellow, Urine Appearance Clear, Urine pH 6.0, Ur Specific [place] 1.025, Urine Protein Negative, Urine Glucose (UA) Negative, Urine Ketones Negative, Urine Blood Negative, Urine Nitrate Negative, Urine Bilirubin Negative, Urine Urobilinogen 0.2, Ur Leukocyte Esterase Negative, Urine WBC Occasional, Ur Squamous Epith Cells 5-10, Amorphous Sediment 1+ 07/10/18 23:32: Urine Opiates Screen Positive H, Urine Methadone Screen Negative, Ur Barbituates Screen Negative, Ur Phencyclidine Scrn Negative, Ur Amphetamines Screen Negative, U Benzodiazepines Scrn Positive H, Urine Cocaine Screen Negative, U Marijuana (THC) Screen Negative I & O for Last 24 hours: Intake & Output 07/08/18 07/09/18 07/10/18 07/11/18 11:59 11:59 11:59 11:59 Output Total 550 / 550 Balance -550 / -550 Weight 259 lb 1 oz Narrative: Patient can awaken for brief periods of time and answer questions although accuracy of her answers is in doubt. Pupils are reactive to light. Oropharynx is moist. Neck is without lymphadenopathy. Lungs are clear to auscultation. Heart has a regular rate and rhythm. Abdomen is soft, nontender, nondistended and obese. The left lower leg has an external fixator. There is no tenderness of the left thigh anteriorly or posteriorly to the level of the knee. Patient has intact range of motion in the upper extremities and right leg. Assessment and Plan (1) Acute kidney injury Current visit: Yes Status: Acute Category: Medical Code(s): N17.9 - Acute kidney failure, unspecified Continue IV fluids repeat BUN and creatinine this morning (2) Opiate misuse Current visit: Yes Status: Suspected Category: Medical Code(s): F11.90 - Opioid use, unspecified, uncomplicated Screen was appropriately positive for opiates. Her level of consciousness could be caused by opiate overdose. Will hold any narcotics at this time (3) S/P ankle arthrodesis Current visit: No Status: Acute Category: Surgical Code(s): Z98.1 - Arthrodesis status (4) Sepsis Current visit: Yes Status: Suspected Category: Medical Code(s): A41.9 - Sepsis, unspecified organism Patient has had recent surgery and presented with hypotension, mental status changes and acute kidney injury. This could be due to sepsis and patient will be started on broad-spectrum antibiotics along with IV fluids
[2018-07-11 07:36] LABS: Basophils % 0.3 % (0.1-2.0); Eosinophils # 0.2 K/mm3 (0.0-0.4); Eosinophils % 2.8 % (0.1-12.0); Hemoglobin 8.5 g/dL (12.2-16.2); Lymphocytes # 1.7 K/mm3 (0.7-4.5); Lymphocytes % 21.2 % (10-50); Mean Corpuscular HGB Conc 30.7 g/dL (31.8-35.4); Mean Corpuscular Hemoglobin 27.5 pg (27.0-31.2); Mean Corpuscular Volume 89.5 fl (81-99); Mean Platelet Volume 7.2 fl (7.4-10.4); Monocytes # 0.4 K/mm3 (0.1-1.0); Monocytes % 4.7 % (1.7-9.3); Neutrophils # 5.8 K/mm3 (1.8-7.8); Neutrophils % 70.9 % (37.0-80.0); Platelet Count 321 K/mm3 (142-424); Red Blood Count 3.09 M/mm3 (4.20-5.40); Red Cell Distribution Width 14.7 % (11.5-17.5); White Blood Count 8.2 K/mm3 (4.8-10.8)
[2018-07-11 07:37] LABS: Hematocrit 27.6 % (37.0-47.0)
[2018-07-11 07:47] LABS: Albumin Level 2.9 gm/dL (3.4-5.0); Albumin/Globulin Ratio 0.8 (1.1-1.8); Anion Gap 15.8 mEq/L (5-15); Bilirubin,Total 0.2 mg/dL (0.2-1.0); Globulin 3.5 gm/dl (1.3-3.2); Potassium 3.8 mmoL/L (3.5-5.1); Total Protein,Serum 6.4 gm/dL (6.4-8.2)
--- NOTE | 2018-07-11 11:35 | Pharmacy Consult Notes ---
[facility] Pharmacy VTE Monitoring - Patient Demographics Admission date: 07/11/18 Report Date: 07/11/18 Time: 11:34 Allergies/Adverse Reactions: Patient Allergies methadone [METHADONE] Allergy (Severe, Verified 07/09/18 10:24) S-DIFF. BREATHING morphine [MORPHINE] Allergy (Intermediate, Verified 07/09/18 10:24) I-RASH amitriptyline [From ELAVIL] Allergy (Mild, Verified 07/09/18 10:24) Height: 1.68 m Weight: 117.509 kg Patient Problems: Current Active Problems Renal failure (ARF), acute on chronic (Acute) Anemia (Acute) Vasovagal episode (Acute) Acute kidney injury (Acute) - VTE Risk Labs: VTE Related Lab Results Hgb 8.5 g/dL (12.2-16.2) L 07/11/18 05:10 Hct 27.6 % (37.0-47.0) L 07/11/18 05:10 Plt Count 321 K/mm3 (142-424) 07/11/18 05:10 BUN 36 mg/dL (7-18) H 07/11/18 05:10 Creatinine 3.26 mg/dL (0.55-1.02) H 07/11/18 05:10 Estimated Creat Clear 18 mL/min (50-200) 07/11/18 05:10 VTE Score: 5 VTE Risk Level: Low Risk - Prophylaxis Types of VTE Prophylaxis: TEDS Knee High (ELMER HOSE ORDER PLACED)
[2018-07-12 06:16] LABS: Basophils % 0.4 % (0.1-2.0); Eosinophils # 0.2 K/mm3 (0.0-0.4); Eosinophils % 4.2 % (0.1-12.0); Hematocrit 27.8 % (37.0-47.0); Hemoglobin 8.8 g/dL (12.2-16.2); Lymphocytes # 1.6 K/mm3 (0.7-4.5); Lymphocytes % 33.1 % (10-50); Mean Corpuscular HGB Conc 31.8 g/dL (31.8-35.4); Mean Corpuscular Hemoglobin 28.1 pg (27.0-31.2); Mean Corpuscular Volume 88.3 fl (81-99); Mean Platelet Volume 6.9 fl (7.4-10.4); Monocytes # 0.3 K/mm3 (0.1-1.0); Monocytes % 5.1 % (1.7-9.3); Neutrophils # 2.8 K/mm3 (1.8-7.8); Neutrophils % 57.2 % (37.0-80.0); Platelet Count 321 K/mm3 (142-424); Red Blood Count 3.14 M/mm3 (4.20-5.40); Red Cell Distribution Width 14.7 % (11.5-17.5); White Blood Count 4.8 K/mm3 (4.8-10.8)
[2018-07-12 06:23] LABS: Albumin Level 2.7 gm/dL (3.4-5.0); Albumin/Globulin Ratio 0.8 (1.1-1.8); Anion Gap 12.1 mEq/L (5-15); Bilirubin,Total 0.2 mg/dL (0.2-1.0); Calcium 8.5 mg/dL (8.5-10.1); Globulin 3.6 gm/dl (1.3-3.2); Potassium 3.1 mmoL/L (3.5-5.1); Total Protein,Serum 6.3 gm/dL (6.4-8.2)
--- NOTE | 2018-07-12 07:26 | Progress Note ---
Internal Medicine - PN: Subj *Date: 07/12/18 *Time: 07:23 Interval history: Patient more awake and alert this morning. She does not recall talking with me yesterday morning. Nursing staff reports patient seems to be more lucid over the last 12 hours. She is oriented to person place and time. She had to be made once yesterday for pain in her leg. She has not had any fevers. She does not recall the events of what happened and led to her coming emergency department. She saw Dr. Cortes late last week. She reports being at home over the weekend. She did take a Zanaflex because of pain and if this times will make her dizzy. She denies that she has been bearing weight in the left leg. Exam Vital signs and Labs for Last 24 Hours: Temp Pulse Resp BP Pulse Ox 97.8 F 78 18 169/79 H 94 L 07/12/18 04:00 07/12/18 04:00 07/12/18 04:00 07/12/18 04:00 07/12/18 04:00 Laboratory Results - last 24 hr 07/11/18 05:10: Sodium 138, Potassium 3.8, Chloride 102, Carbon Dioxide 24, Anion Gap 15.8 H, BUN 36 H, Creatinine 3.26 H, Estimated Creat Clear 18, Estimated GFR 15 L*, Est GFR ( Amer) 18 L*, Glucose 111 H, Calcium 8.0 L, Total Bilirubin 0.2, AST 18 D, ALT 17, Alkaline Phosphatase 100, Lactate Dehydrogenase 202, Total Protein 6.4, Albumin 2.9 L, Globulin 3.5 H, Albumin/Globulin Ratio 0.8 L 07/11/18 05:10: WBC 8.2 D, RBC 3.09 L, Hgb 8.5 L, Hct 27.6 L, MCV 89.5, MCH 27.5, MCHC 30.7 L, RDW 14.7, Plt Count 321, MPV 7.2 L, Neut % (Auto) 70.9, Lymph % (Auto) 21.2, [place] % (Auto) 4.7, Eos % (Auto) 2.8, Baso % (Auto) 0.3, Neut # (Auto) 5.8, Lymph # (Auto) 1.7, [place] # (Auto) 0.4, Eos # (Auto) 0.2, Baso # (Auto) 0.0 07/12/18 05:15: WBC 4.8 D, RBC 3.14 L, Hgb 8.8 L, Hct 27.8 L, MCV 88.3, MCH 28.1, MCHC 31.8, RDW 14.7, Plt Count 321, MPV 6.9 L, Neut % (Auto) 57.2, Lymph % (Auto) 33.1, [place] % (Auto) 5.1, Eos % (Auto) 4.2, Baso % (Auto) 0.4, Neut # (Auto) 2.8, Lymph # (Auto) 1.6, [place] # (Auto) 0.3, Eos # (Auto) 0.2, Baso # (Auto) 0.0 07/12/18 05:15: Sodium 142, Potassium 3.1 L, Chloride 107, Carbon Dioxide 26, Anion Gap 12.1, BUN 22 H D, Creatinine 1.60 H D, Estimated Creat Clear 36, Estimated GFR 33 L, Est GFR ( Amer) 40 L D, Glucose 108 H, Calcium 8.5, Total Bilirubin 0.2, AST 10 L D, ALT 14, Alkaline Phosphatase 96, Total Protein 6.3 L, Albumin 2.7 L, Globulin 3.6 H, Albumin/Globulin Ratio 0.8 L I & O for Last 24 hours: Intake & Output 07/09/18 07/10/18 07/11/18 07/12/18 11:59 11:59 11:59 11:59 Intake Total 240 / 240 3620 / 3620 Output Total 550 / 550 3100 / 3100 Balance -310 / -310 520 / 520 Weight 259 lb 1 oz 262 lb 3 oz Narrative: She is awake and alert this morning. Lungs are clear to auscultation. Heart has a regular rate and rhythm abdomen is soft and nontender. External fixators in place left leg Assessment and Plan (1) Acute kidney injury Current visit: Yes Status: Acute Category: Medical Code(s): N17.9 - Acute kidney failure, unspecified Improving. Decrease IV fluid rate. (2) Opiate misuse Current visit: Yes Status: Suspected Category: Medical Code(s): F11.90 - Opioid use, unspecified, uncomplicated Educated once over the last 4 hours and reports that she was taking her medicines correctly at home (3) S/P ankle arthrodesis Current visit: No Status: Acute Category: Surgical Code(s): Z98.1 - Arthrodesis status (4) Sepsis Current visit: Yes Status: Suspected Category: Medical Code(s): A41.9 - Sepsis, unspecified organism Continue broad-spectrum antibiotics (5) Anemia of chronic disease Current visit: Yes Status: Acute Category: Medical Code(s): D63.8 - Anemia in other chronic diseases classified elsewhere (6) Hypokalemia Current visit: Yes Status: Acute Category: Medical Code(s): E87.6 - Hypokalemia Replace potassium orally - Assessment and plan all Dx Assessment and Plan for all problems:: Continue broad-spectrum antibiotic coverage. Patient is to get out of bed to chair today with assistance. No functions improving. Continue to follow renal patient as well as patient's anemia
--- NOTE | 2018-07-12 08:37 | Consult Report ---
*Admission Date: 07/11/18 *Chief complaint: Left ankle pain, post op ankle arthrodesis *History of present illness: Ms. Greco is a 58 y/o female who was admitted for acute renal failure. She had recent surgery for left ankle fusion 06/16/18, and presented to the emergency department after experiencing dizziness and lightheadedness at home that led to a fall. In the emergency department patient was hypotensive upon presentation with sluggish mental status. She was given IV fluids for her hypotension but also found to have acute kidney injury with significant increase in creatinine above baseline. Patient was admitted for further IV antibiotics. She has been on Clinda, Cipro antibiotics for a proximal pin tract infection secondary to external fixation device and had a dressing change outpatient in the clinic 07/09/18. Infection markers and labs (wbc, crp, esr) have been trending down. Patient is awake, responsive in bed. She is oriented to person and place. She denies N/V, F/C, SOB/CP. She told other staff, she has been told she can bear weight on the left ankle and foot. But acknowledges to me that she knows that she should not be putting weight to the left leg. Nursing staff reports a pill count on the patient's narcotic was inaccurate and suggested that the patient has been taking too much of her narcotic. She was referred to pain mgmt, Dr. Jacome. However patient has been seen there before and was noncompliant with her treatment plan so she was discharged from the clinic. Review of Systems - Review of Systems Review of systems:: pertinent systems reviewed and negative unless documented below - Constitutional Reports fatigue, Denies chills, Denies fever(s), Denies malaise - Eyes Denies blurry vision - ENT Denies abnormal hearing - *Cardiovascular Denies chest pain, Denies shortness of breath - *Respiratory Denies chest congestion, Denies cough, Denies shortness of breath - *Gastrointestinal Denies abdominal pain, Denies nausea, Denies vomiting - *Genitourinary Denies abnormal periods - *Musculoskeletal Reports limited joint movement (LLE) - Integumentary/Breasts Denies itching - *Neurologic Reports fainting, Reports weakness, Denies headache(s), Denies seizure-like activity - Psychiatric Reports anxiety, Reports depression [facility] History I have reviewed the patient's past medical history: Yes Medical History: Reports:: Anxiety, Asthma, Depression, Hypertension Denies:: Cancer, Diabetes Mellitus Type 1, Diabetes Mellitus Type 2, MRSA, Seizures Have you ever received a pneumonia vaccine?: Yes Have you received a flu vaccine this season?: Yes Other Medical History: Reports: Arthritis, Fibromyalgia, Hoarseness, Sinus Problems, Other. Denies: Blood Transfusion Reaction Laterality Cases: Left: Other, Bilateral: Carpal Tunnel Release Other Surgeries: Yes: Appendectomy, Colonoscopy, , EGD, Hysterectomy- Total, Other Amputation: No Fractures: Yes - *Social History Educational Level: Attended High School Smoking Status: Current every day smoker Tobacco Type: cigarettes # Packs/Day (cigarettes): 1 #Yrs smoked (if former smoker): 20 Alcohol Intake: never Alcohol Intake Frequency:: other Substance Use Type: denies use Occupational Status: disabled Housing: apartment Household Members: none Travel in the last 8 weeks: None - Psychiatric History Expresses thoughts of harming self/others: None Suicide Plan Description: No Plan Pschychiatric History:: Reports:: Anxiety, Depression *Family Hx:: Cancer, Heart Attack, Hyperlipidemia, Hypertension, Asthma Meds Home Medications Medication Instructions Recorded Confirmed Type Duloxetine HCl 60 mg PO DAILY 01/28/18 07/10/18 History Gabapentin [Neurontin 600mg 1,200 mg PO TID 01/28/18 07/10/18 History tablet] Quetiapine Fumarate 100 mg PO DAILY 01/28/18 07/10/18 History Temazepam [Restoril 30mg capsule] 30 mg PO HSP PRN 01/28/18 07/10/18 History Tizanidine HCl [Zanaflex 4mg 6 mg PO TIDP PRN 01/28/18 07/10/18 History tablet] albuterol sulfate 2.5 mg/3 mL 3 ml IH TID 20 Days #180 01/29/18 07/10/18 History (0.083 %) solution for nebulization aspirin 81 mg tablet,delayed 81 mg PO DAILY 01/29/18 07/10/18 History release budesonide-formoterol HFA 160 2 puff INHALATION BID 30 Days #10 01/29/18 0 07/10/18 History mcg-4.5 mcg/actuation aerosol inhaler Cetirizine HCl [Zyrtec] 10 mg PO DAILY 04/21/18 07/10/18 History Losartan/Hydrochlorothiazide 1 tab PO DAILY 04/21/18 07/10/18 History [Losartan-Hctz 100-25 mg Tab] Metoprolol Succinate 50 mg PO DAILY 04/21/18 07/10/18 History Amlodipine Besylate [Norvasc 5mg 5 mg PO DAILY 06/15/18 07/10/18 History tablet] ibuprofen 800 mg tablet 800 mg PO BID #60 tab 06/15/18 07/10/18 Rx Cholecalciferol (Vitamin D3) 50,000 unit PO WEEKLY 06/17/18 07/10/18 History [Vitamin D3 50,000 unit Cap] ciprofloxacin 500 mg tablet 500 mg PO BID 14 Days #28 tab 06/29/18 07/10/18 Rx clindamycin HCl 300 mg capsule 300 mg PO TID 21 Days #63 cap 07/09/18 07/10/18 Rx oxycodone-acetaminophen 10 mg-325 10 mg PO NEEDED PRN 8 Days #30 07/09/18 07/10/18 History mg tablet tab Ondansetron HCl [Ondansetron 4mg 4 mg PO Q8HP PRN 07/11/18 07/11/18 History Tablet] Ropinirole HCl 2 mg PO HS 07/11/18 07/11/18 History Allergies Allergy/AdvReac Type Severity Reaction Status Date / Time methadone [METHADONE] Allergy Severe S-DIFF. Verified 07/09/18 10:24 BREATHING morphine [MORPHINE] Allergy Intermediate I-RASH Verified 07/09/18 10:24 amitriptyline [From ELAVIL] Allergy Mild Verified 07/09/18 10:24 Exam Vital signs and Labs for Last 24 Hours: Temp Pulse Resp BP Pulse Ox 97.8 F 78 18 169/79 H 94 L 07/12/18 04:00 07/12/18 04:00 07/12/18 04:00 07/12/18 04:00 07/12/18 04:00 Laboratory Results - last 24 hr 07/12/18 05:15: WBC 4.8 D, RBC 3.14 L, Hgb 8.8 L, Hct 27.8 L, MCV 88.3, MCH 28.1, MCHC 31.8, RDW 14.7, Plt Count 321, MPV 6.9 L, Neut % (Auto) 57.2, Lymph % (Auto) 33.1, [place] % (Auto) 5.1, Eos % (Auto) 4.2, Baso % (Auto) 0.4, Neut # (Auto) 2.8, Lymph # (Auto) 1.6, [place] # (Auto) 0.3, Eos # (Auto) 0.2, Baso # (Auto) 0.0 07/12/18 05:15: Sodium 142, Potassium 3.1 L, Chloride 107, Carbon Dioxide 26, Anion Gap 12.1, BUN 22 H D, Creatinine 1.60 H D, Estimated Creat Clear 36, Estimated GFR 33 L, Est GFR ( Amer) 40 L D, Glucose 108 H, Calcium 8.5, Total Bilirubin 0.2, AST 10 L D, ALT 14, Alkaline Phosphatase 96, Total Protein 6.3 L, Albumin 2.7 L, Globulin 3.6 H, Albumin/Globulin Ratio 0.8 L I & O for Last 24 hours: Intake & Output 07/09/18 07/10/18 07/11/18 07/12/18 11:59 11:59 11:59 11:59 Intake Total 390 / 390 3620 / 3620 Output Total 550 / 550 3100 / 3100 Balance -160 / -160 520 / 520 Weight 259 lb 1 oz 262 lb 3 oz - *Routine HEENT Exam Head: Present: normocephalic Eye: Present: PERRL ENT: Present: mucous membranes dry - *Routine Neck Exam Present: supple - *Routine Respiratory Exam Absent: prolonged expiratory phase, respiratory distress - *Routine Cardiovascular Exam Present: RRR - *Routine Abdominal Exam Present: soft. Absent: guarding - *Routine Rectal Exam Patient deferred: visual exam - *Routine Exam Patient deferred: external exam - *Routine Extremities Exam Present: pulses intact, normal capillary refill. Absent: calf tenderness - *Routine Skin Exam Present: intact, dry. Absent: erythema, gangrene - *Routine Neurological Exam Present: alert, oriented X3, abnormal gait, moving all extremities - Detailed Lower Extremity Exam Comments: Ex fix intact to LLE. Erythema and edema noted to all 4 proximal pin sites, improved. There is no malodor. No active drainage from proximal pin sites. The proximal pins still less irriated. Pain to palpation of the proximal 4 pin sites. Max point of tenderness is lateral pin site, improved from Thursday. Skin irritation noted to the most medial proximal pin site, skin tear 2.1 x 1.1cm long medial and inferior to pin. Sutures are clean dry and intact to medial, anterior and lateral ankle. No wound dehiscence or SOI at the incision site. Neuro: abnormal to light touch, pain or propio., moves all extremities, tone normal, unable to assess gait (gait assisted: wheelchair bound or walker) Ex fix intact to LLE. Pain to LLE. Motor function intact. CFT wnl. Light touch sensation at baseline. Calf pain secondary to pins. No thigh pain noted b/l. Results - Labs Result Diagrams: 07/12/18 05:15 07/12/18 05:15 Labs: Abnormal lab results 07/12/18 07/12/18 Range/Units 05:15 05:15 RBC 3.14 L (4.20-5.40) M/mm3 Hgb 8.8 L (12.2-16.2) g/dL Hct 27.8 L (37.0-47.0) % MPV 6.9 L (7.4-10.4) fl Potassium 3.1 L (3.5-5.1) mmoL/L BUN 22 H D (7-18) mg/dL Creatinine 1.60 H D (0.55-1.02) mg/dL Estimated GFR 33 L (>60) ml/min Est GFR ( Amer) 40 L D (>60) ML/MIN Glucose 108 H (74-106) mg/dL AST 10 L D (15-37) U/L Total Protein 6.3 L (6.4-8.2) gm/dL Albumin 2.7 L (3.4-5.0) gm/dL Globulin 3.6 H (1.3-3.2) gm/dl Albumin/Globulin Ratio 0.8 L (1.1-1.8) H & H 07/10/18 07/11/18 07/12/18 Range/Units 23:23 05:10 05:15 Hgb 9.0 L 8.5 L 8.8 L (12.2-16.2) g/dL Hct 29.1 L 27.6 L 27.8 L (37.0-47.0) % All other labs normal. Assessment and Plan (1) Acute kidney injury Current visit: Yes Status: Acute Category: Medical Code(s): N17.9 - Acute kidney failure, unspecified (2) Opiate misuse Current visit: Yes Status: Suspected Category: Medical Code(s): F11.90 - Opioid use, unspecified, uncomplicated (3) S/P ankle arthrodesis Current visit: No Status: Acute Category: Surgical Code(s): Z98.1 - Arthrodesis status (4) Sepsis Current visit: Yes Status: Suspected Category: Medical Code(s): A41.9 - Sepsis, unspecified organism (5) Anemia of chronic disease Current visit: Yes Status: Acute Category: Medical Code(s): D63.8 - Anemia in other chronic diseases classified elsewhere (6) Hypokalemia Current visit: Yes Status: Acute Category: Medical Code(s): E87.6 - Hypokalemia (7) Non compliance with medical treatment Current visit: Yes Status: Acute Category: Medical Code(s): Z91.19 - Patient's noncompliance with other medical treatment and regimen - Assessment and plan all Dx Assessment and Plan for all problems:: 06/16/18: S/p left HWR, ankle AD, synovectomy, jelly of ex fix POD # 3w, 5d Labs: 06/29/18: wbc 8.7, crp 21.2, esr 120 07/09/18: wbc 7.7, crp 4.3, esr 75 07/12/18: wbc 4.8 WCx: MRSA X-rays foot, ankle, tib-fib from 06/29/18 show hardware intact with no hardware failure, loosening or SOI. Sutures are clean, dry and intact to the incision site with no signs of infection or wound dehiscence at incisions. Pin sites intact. There are signs of infection to the proximal 4 pin sites, improving with the Lupe Douglas outpatient. Started on braod spectrum IV-Levo in patient. Plan for full ex fix dressing change tomorrow. Patient is to keep this dressing clean, dry, and intact. They are to continue non weight bearing with wheelchair or walker. Ice, elevate and Motrin for pain and swelling. I had a long discussion with patient about compliance. Patient has no showed, canceled or not answered her phone several times over this past week. She is still trying to put weight to LLE. I explained the risks of pin tract infection including sepsis and osteomyelitis. We also discussed having to remove frame early, IV abx and the risk of below knee amputation. Patient verbalized understanding. I am concerned over her lack of compliance. I explained the pain is from the infection and should start to decrease as infection is better controlled. Plan: 1. Dressing change tomorrow at 0730 2. IV Abx - Levo per Pharm dosing 3. Strict NWB to LLE 4. Bedside commode and walker, ok to get up with assistance 5. F/u tomorrow
--- NOTE | 2018-07-13 07:20 | Progress Note ---
Internal Medicine - PN: Subj *Date: 07/13/18 *Time: 07:17 Interval history: Patient reports having small amounts of abdominal discomfort and loose stool last night. No nausea or vomiting. She is currently resting comfortably getting ready to have breakfast. Exam Vital signs and Labs for Last 24 Hours: Temp Pulse Resp BP Pulse Ox 97.9 F 81 20 169/72 H 94 L 07/13/18 04:00 07/13/18 04:00 07/13/18 04:00 07/13/18 04:00 07/13/18 04:00 I & O for Last 24 hours: Intake & Output 07/10/18 07/11/18 07/12/18 07/13/18 23:59 23:59 23:59 23:59 Intake Total 2068 / 2068 4801 / 4801 Output Total 2049 / 2049 4800 / 4800 850 / 850 Balance -850 / -850 Weight 199 lb 259 lb 1 oz 262 lb 260 lb 9 oz - Constitutional no acute distress, obese - *Routine HEENT Exam Head: Present: normocephalic - *Routine Respiratory Exam Present: CTA bilaterally. Absent: accessory muscle use Comments: noncongested, dry cough noted - *Routine Cardiovascular Exam Present: RRR, Normal S1, Normal S2. Absent: murmur, irregular rhythm - *Routine Abdominal Exam Present: soft, normoactive bowel sounds. Absent: tenderness - *Routine Extremities Exam Absent: cyanosis Comments: left lower extremity with trace edema, <3 sec cap refill, equal temp in [place] LE - *Routine Skin Exam Present: intact, pallor. Absent: cyanosis - *Routine Neurological Exam Present: alert, oriented X3 - Routine Psychiatric Exam Present: normal affect Assessment and Plan (1) Acute kidney injury Current visit: Yes Status: Acute Category: Medical Code(s): N17.9 - Acute kidney failure, unspecified (2) Opiate misuse Current visit: Yes Status: Suspected Category: Medical Code(s): F11.90 - Opioid use, unspecified, uncomplicated (3) S/P ankle arthrodesis Current visit: No Status: Acute Category: Surgical Code(s): Z98.1 - Arthrodesis status (4) Sepsis Current visit: Yes Status: Suspected Category: Medical Code(s): A41.9 - Sepsis, unspecified organism (5) Anemia of chronic disease Current visit: Yes Status: Acute Category: Medical Code(s): D63.8 - Anemia in other chronic diseases classified elsewhere (6) Hypokalemia Current visit: Yes Status: Acute Category: Medical Code(s): E87.6 - Hypokalemia (7) Non compliance with medical treatment Current visit: Yes Status: Acute Category: Medical Code(s): Z91.19 - Patient's noncompliance with other medical treatment and regimen - Assessment and plan all Dx Assessment and Plan for all problems:: Dr Graham planned to change dressing to left lower extremity this morning, may discharge afterward.
--- NOTE | 2018-07-13 07:28 | Discharge Summary ---
General - General Admission date:: 07/11/18 HPI HPI: 58-year-old female with recent surgery for left ankle fusion presented to the emergency department after experiencing dizziness and lightheadedness at home that led to a fall. In the emergency department patient was hypotensive upon presentation with sluggish mental status. She was given IV fluids for her hypotension but also found to have acute kidney injury with significant increase in creatinine above baseline. Patient was admitted for further IV antibiotics. Upon interviewing the patient this morning she is somnolent. She can awaken for brief periods of time to answer questions. She is oriented to person and place. She denies fevers. She denies use of NSAIDs although ibuprofen is listed as a home medication. She denies chills at home. She claims she has been told she can bear weight on the left ankle and foot. Nursing staff reports a pill count on the patient's narcotic was an accurate and suggested that the patient has been taking too much of her narcotic. Hospital Course Hospital Course: [facility], lab work was monitored and IVFs were given. Patients mental status has cleared up since being admitted. Objective Vital signs: Temp Pulse Resp BP Pulse Ox 97.9 F 81 20 169/72 H 94 L 07/13/18 04:00 07/13/18 04:00 07/13/18 04:00 07/13/18 04:00 07/13/18 04:00 no acute distress, obese - *Routine HEENT Exam Head: Present: normocephalic - *Routine Respiratory Exam Present: CTA bilaterally. Absent: accessory muscle use, decreased breath sounds - *Routine Cardiovascular Exam Present: RRR, Normal S1, Normal S2. Absent: murmur, irregular rhythm - *Routine Abdominal Exam Present: soft, normoactive bowel sounds. Absent: tenderness, distended - *Routine Extremities Exam Absent: cyanosis, edema - *Routine Skin Exam Present: intact. Absent: pallor - *Routine Neurological Exam Present: alert, oriented X3 - Routine Psychiatric Exam Present: normal affect DS: Diagnosis - Discharge Diagnosis (1) Acute kidney injury Status: Acute (2) Opiate misuse Status: Suspected (3) S/P ankle arthrodesis Status: Acute (4) Sepsis Status: Suspected (5) Anemia of chronic disease Status: Acute (6) Hypokalemia Status: Acute (7) Non compliance with medical treatment Status: Acute Discharge Plan - Patient Discharge Instructions ACTIVITY: Continue current activity, Other (no weight bearing left food) DIET: continue same diet Patient Instructions: Acute Renal Failure, How to Prevent Falls, DI for Sepsis -- Adult - Follow up Plan Follow up with: Reji Watts MD [Primary Care Provider] - 1 month (follow up one month) Disposition: Home, [facility] Medications: Home Medications Medication Instructions Recorded Confirmed Type Duloxetine HCl 60 mg PO DAILY 01/28/18 07/10/18 History Quetiapine Fumarate 100 mg PO DAILY 01/28/18 07/10/18 History Temazepam [Restoril 30mg capsule] 30 mg PO HSP PRN 01/28/18 07/10/18 History Tizanidine HCl [Zanaflex 4mg 6 mg PO TIDP PRN 01/28/18 07/10/18 History tablet] albuterol sulfate 2.5 mg/3 mL 3 ml IH TID 20 Days #180 01/29/18 07/10/18 History (0.083 %) solution for nebulization aspirin 81 mg tablet,delayed 81 mg PO DAILY 01/29/18 07/10/18 History release budesonide-formoterol HFA 160 2 puff INHALATION BID 30 Days #10 01/29/18 07/10/18 History mcg-4.5 mcg/actuation aerosol inhaler Cetirizine HCl [Zyrtec] 10 mg PO DAILY 04/21/18 07/10/18 History Losartan/Hydrochlorothiazide 1 tab PO DAILY 04/21/18 07/10/18 History [Losartan-Hctz 100-25 mg Tab] Metoprolol Succinate 50 mg PO DAILY 04/21/18 07/10/18 History Amlodipine Besylate [Norvasc 5mg 5 mg PO DAILY 06/15/18 07/10/18 History tablet] ibuprofen 800 mg tablet 800 mg PO BID #60 tab 06/15/18 07/10/18 Rx Cholecalciferol (Vitamin D3) 50,000 unit PO WEEKLY 06/17/18 07/10/18 History [Vitamin D3 50,000 unit Cap] ciprofloxacin 500 mg tablet 500 mg PO BID 14 Days #28 tab 06/29/18 07/10/18 Rx clindamycin HCl 300 mg capsule 300 mg PO TID 21 Days #63 cap 07/09/18 07/10/18 Rx oxycodone-acetaminophen 10 mg-325 10 mg PO NEEDED PRN 8 Days #30 07/09/18 07/10/18 History mg tablet tab Ondansetron HCl [Ondansetron 4mg 4 mg PO Q8HP PRN 07/11/18 07/11/18 History Tablet] Ropinirole HCl 2 mg PO HS 07/11/18 07/11/18 History Amlodipine Besylate [Norvasc 10mg 10 mg PO DAILY #30 tab 07/13/18 Rx tablet] Gabapentin [Neurontin 600mg 600 mg PO TID #90 tablet 07/13/18 Rx tablet] Prescriptions/Medication Reconciliation: New Amlodipine Besylate [Norvasc 10mg tablet] 10 mg PO DAILY #30 tab Continue budesonide-formoterol HFA 160 mcg-4.5 mcg/actuation aerosol inhaler 2 puff INHALATION BID 30 Days #10 clindamycin HCl 300 mg capsule 300 mg PO TID 21 Days #63 cap aspirin 81 mg tablet,delayed release 81 mg PO DAILY albuterol sulfate 2.5 mg/3 mL (0.083 %) solution for nebulization 3 ml IH TID 20 Days #180 ciprofloxacin 500 mg tablet 500 mg PO BID 14 Days #28 tab oxycodone-acetaminophen 10 mg-325 mg tablet 10 mg PO NEEDED PRN 8 Days #30 tab PRN Reason: pain Quetiapine Fumarate 100 mg PO DAILY Duloxetine HCl 60 mg PO DAILY Metoprolol Succinate 50 mg PO DAILY Cetirizine HCl [Zyrtec] 10 mg PO DAILY Ondansetron HCl [Ondansetron 4mg Tablet] 4 mg PO Q8HP PRN PRN Reason: Nausea Cholecalciferol (Vitamin D3) [Vitamin D3 50,000 unit Cap] 50,000 unit PO WEEKLY Ropinirole HCl 2 mg PO HS Changed Gabapentin [Neurontin 600mg tablet] 600 mg PO TID #90 tablet Discontinued ibuprofen 800 mg tablet 800 mg PO BID #60 tab Tizanidine HCl [Zanaflex 4mg tablet] 6 mg PO TIDP PRN PRN Reason: MUSCLE SPASMS Temazepam [Restoril 30mg capsule] 30 mg PO HSP PRN PRN Reason: Sleep Losartan/Hydrochlorothiazide [Losartan-Hctz 100-25 mg Tab] 1 tab PO DAILY Amlodipine Besylate [Norvasc 5mg tablet] 5 mg PO DAILY
--- NOTE | 2018-07-13 08:23 | Progress Note ---
Subjective Date: 07/13/18 Time: 07:45 Principal diagnosis: Post op left ankle surgery Interval history: Ms. Greco is a 58 y/o female who was admitted for acute renal failure. She had recent surgery for left ankle fusion 06/16/18, after failed mal-union of ankle fracture ORIF in 04/[address] Oro. She has been on Clinda, Cipro antibiotics for a proximal pin tract infection secondary to external fixation device and had a dressing change outpatient in the clinic 07/09/18. Infection markers and labs (wbc, crp, esr) have been trending down. Patient is awake, responsive in bed. She is oriented to person and place. Reports nausea overnight. She reports no pain. PN: Obj Ex Vital signs: Temp Pulse Resp BP Pulse Ox 97.9 F 81 20 169/72 H 94 L 07/13/18 04:00 07/13/18 04:00 07/13/18 04:00 07/13/18 04:00 07/13/18 04:00 Narrative: Resting comfortably. Denies N/V, F/C, SOB/CP. - Constitutional no acute distress, morbidly obese - Routine HEENT Exam Head: Present: normocephalic Eye: Present: PERRL ENT: Present: mucous membranes dry - Routine Respiratory Exam Present: accessory muscle use. Absent: respiratory distress - Routine Cardiovascular Exam Present: RRR - Routine Abdominal Exam Present: soft. Absent: guarding - Routine Rectal Exam Patient deferred: visual exam - Routine Extremities Exam Present: pulses intact, normal capillary refill. Absent: calf tenderness - Detailed Lower Extremity Exam Comments: Ex fix intact to LLE. Erythema and edema noted to all 4 proximal pin sites, resolving. There is no malodor. No active drainage from proximal pin sites. The proximal pins less irritated. Mild pain to palpation of the proximal 4 pin sites. Skin tear 1.5 x 0.9 x 0.1cm long medial most pin inferiorly. Sutures are clean dry and intact to medial, anterior and lateral ankle. No wound dehiscence or SOI at the incision site. Ex fix intact to LLE. Pain to LLE. Motor function intact. CFT wnl. Light touch sensation at baseline. No calf or thigh pain noted b/l. - Routine Neurological Exam Present: alert, oriented X3 - Routine Psychiatric Exam Present: normal affect - Urinary Catheter Management Gan Cath placed during this visit: yes Urethral indwelling: Yes Reason for continuing: Acute urinary retention Insertion date: 07/10/18 Insertion time: 23:33 Progress Note: A&P (1) Acute kidney injury Status: Acute Current Visit: Yes (2) Opiate misuse Status: Suspected Current Visit: Yes (3) S/P ankle arthrodesis Status: Acute Current Visit: No (4) Sepsis Status: Suspected Current Visit: Yes (5) Anemia of chronic disease Status: Acute Current Visit: Yes (6) Hypokalemia Status: Acute Current Visit: Yes (7) Non compliance with medical treatment Status: Acute Current Visit: Yes Assessment and Plan for All Diagnoses:: 06/16/18: S/p left HWR, ankle AD, synovectomy, jelly of ex fix POD # 3w, 6d Labs: 06/29/18: wbc 8.7, crp 21.2, esr 120 07/09/18: wbc 7.7, crp 4.3, esr 75 07/12/18: wbc 4.8 WCx: MRSA X-rays foot, ankle, tib-fib from 06/29/18 show hardware intact with no hardware failure, loosening or SOI. Sutures are clean, dry and intact to the incision site with no signs of infection or wound dehiscence at incisions. Full ex fix dressing change today with removal of remaining sutures x 18. Pin sites are cleansed with Hibiclens. Steri-Strips applied to incision sites. Xeroform, 4 x 4's, Sarah and several applied to the LLE. Patient is to keep this dressing clean, dry, and intact. They are to continue non weight bearing with wheelchair or walker. Ice, elevate and Motrin for pain and swelling. I had a long discussion with patient about compliance. Patient has no showed, canceled or not answered her phone several times over this past week. She is still trying to put weight to LLE. I explained the risks of pin tract infection including sepsis and osteomyelitis. We also discussed having to remove frame early, IV abx and the risk of below knee amputation. Patient verbalized understanding. I am concerned over her lack of compliance. I explained the pain is from the infection and should start to decrease as infection is better controlled. Plan: 1. Sutures removed today 2. Continue Clinda, Cipro outpatient (has Rx) 3. Maintain dressing C/D/I to LLE 4. Strict NWB to LLE 5. No new pain Rx given, wean off narcotics 6. F/u next week Wedn for dressing change in office 7. Plan to keep ex fix x 3 more weeks then outpatient ex fix removal
== END 2018-07-13 11:25 | disposition home or self-care (01) | DRG 918 ==
LOC: 2ND 23:02 → ER 23:02 → INTOOBSV 07-11 04:25 → OBSVTOIN 07-11 04:25 → 2ND 07-11 04:27
PROVIDERS: ADMIT Family Medicine; ATTEND Family Medicine
CPT/HCPCS: 36415; 70450; 71010; 71045; 72125; 72170; 80048; 80053; 80305; 81001; 83615; 85025; 85651; 86140; 93005; 96365; 96366; 99285; G0378; J1956; J2405; J2543

== ENCOUNTER → 2018-07-28 13:27 | Outpatient (CLI) | payer MEDICARE, MEDICAID, SELFPAY ==
--- NOTE | 2018-07-28 13:40 | XR_ITS ---
XR chest 2V HISTORY: Hypertension, smoker ITS.REASON: HTN ORDERING PHYSICIAN: Jelena Graham DPM PATIENT AGE: 58 years COMPARISON: 07/11/2018 FINDINGS: The cardiomediastinal silhouette and pulmonary vascularity are within normal limits. The lungs are clear without infiltrates, suspicious nodules, or pleural effusions. No acute bony abnormalities. There are degenerative changes in the thoracic spine IMPRESSION: No change with no acute finding
[2018-07-28 13:49] LABS: Basophils # 0.1 K/mm3 (0-0.2); Basophils % 0.8 % (0.1-2.0); Eosinophils # 0.3 K/mm3 (0.0-0.4); Eosinophils % 4.2 % (0.1-12.0); Hematocrit 36.6 % (37.0-47.0); Hemoglobin 11.7 g/dL (12.2-16.2); Lymphocytes # 2.9 K/mm3 (0.7-4.5); Lymphocytes % 37.9 % (10-50); Mean Corpuscular Hemoglobin 27.3 pg (27.0-31.2); Mean Corpuscular Volume 85.5 fl (81-99); Mean Platelet Volume 7.1 fl (7.4-10.4); Monocytes # 0.4 K/mm3 (0.1-1.0); Monocytes % 5.4 % (1.7-9.3); Neutrophils # 3.9 K/mm3 (1.8-7.8); Neutrophils % 51.8 % (37.0-80.0); Platelet Count 400 K/mm3 (142-424); Red Blood Count 4.28 M/mm3 (4.20-5.40); Red Cell Distribution Width 14.4 % (11.5-17.5); White Blood Count 7.6 K/mm3 (4.8-10.8)
[2018-07-28 14:35] LABS: Erythrocyte Sedimentation Rate 75 mm/hr (0-30)
[2018-07-28 14:40] LABS: Anion Gap 14.4 mEq/L (5-15); Blood Urea Nitrogen 9 mg/dL (7-18); C-Reactive Protein 1.9 mg/L (0.0-0.9); Calcium 9.9 mg/dL (8.5-10.1); Carbon Dioxide 29 mmol/L (21.0-32.0); Chloride 102 mmol/L (98-107); Creatinine,Serum 0.95 mg/dL (0.55-1.02); Estimated Glomerular Filt Rate 61 ml/min (>60); GFR (African American) 73 ML/MIN (>60); Glucose 94 mg/dL (74-106); Potassium 4.4 mmoL/L (3.5-5.1); Sodium 141 mmol/L (136-145)
== END ==
PROVIDERS: Visit Provider Podiatrist
DX: Z01.818 Encounter for other preprocedural examination (principal)
CPT/HCPCS: 36415; 71046; 80048; 85025; 85651; 86140; 93005

== ENCOUNTER 2018-08-12 10:10 | Outpatient (CLI) | payer MEDICARE, MEDICAID, SELFPAY ==
[2018-08-12 10:37] VITALS: BMI 36.3
--- NOTE | 2018-08-12 10:38 | XR_ITS ---
XR chest portable PICC plac HISTORY: Check line placement. : PICC line placement ORDERING PHYSICIAN: Jelena Graham DPM PATIENT AGE: 58 years Technique: AP portable upright chest COMPARISON: Previous CXR 07/28/2018 FINDINGS: PICC line enters from the left arm transversing left subclavian and brachiocephalic vein with tip of the PICC line at the SVC.-Satisfactory position. The lungs are well expanded clear with no active disease. Heart upper normal in size. Normal pulmonary vascularity. CP angles clear. Chest wall unremarkable. - IMPRESSION PICC line in good position.-. Enters from the left arm . Lungs clear no active disease. Heart upper normal size.
[2018-08-12 11:34] LABS: Blood Urea Nitrogen 15 mg/dL (7-18); Calcium 9.1 mg/dL (8.5-10.1); Carbon Dioxide 28 mmol/L (21.0-32.0); Chloride 101 mmol/L (98-107); Creatinine Clearance Estimated 99 mL/min (50-200); Creatinine,Serum 0.92 mg/dL (0.55-1.02); Estimated Glomerular Filt Rate 63 ml/min (>60); GFR (African American) 76 ML/MIN (>60); Glucose 104 mg/dL (74-106); Sodium 138 mmol/L (136-145)
[2018-08-12 11:57] VITALS: BP 104/55; PULSE 60; RESP 18; TEMP 36.6; O2SAT 96
--- NOTE | 2018-08-12 12:10 | HMH.PHACONS ---
- Pharmacy Consult Date: 08/12/18 Time: 12:10 Referring provider: DR. KENNEY Reason for Consult:: BASED ON PATIENT'S FACTORS, RECOMMEND STARTING WITH VANCOMYCIN 2000 MG Q24H AT THIS TIME. WILL CHECK TROUGH LEVEL AND SRCR ON THURSDAY AM PRIOR TO DOSE PATIENT RENAL FUNCTION HAS VARIED WIDELY BASED ON PAST HISTORY. PHARMACY WILL FOLLOW DAILY AND ADJUST APPROPRIATE. GEORGE SEGURA, PHARMD Allergies and ADEs:: Allergies Allergy/AdvReac Type Severity Reaction Status Date / Time methadone [METHADONE] Allergy Severe S-DIFF. Verified 08/04/18 06:55 BREATHING morphine [MORPHINE] Allergy Intermediate I-RASH Verified 08/04/18 06:55 amitriptyline [From ELAVIL] Allergy Mild Verified 08/04/18 06:55 Home Medications:: Home Medications Medication Instructions Recorded Confirmed Type Duloxetine HCl 60 mg PO DAILY 01/28/18 08/04/18 History Quetiapine Fumarate 100 mg PO DAILY 01/28/18 08/04/18 History aspirin 81 mg tablet,delayed 81 mg PO DAILY 01/29/18 08/04/18 History release budesonide-formoterol HFA 160 2 puff INHALATION BID 30 Days #10 01/29/18 08/04/18 History mcg-4.5 mcg/actuation aerosol inhaler Cetirizine HCl [Zyrtec] 10 mg PO DAILY 04/21/18 08/04/18 History Metoprolol Succinate 50 mg PO DAILY 04/21/18 08/04/18 History Cholecalciferol (Vitamin D3) 50,000 unit PO WEEKLY 06/17/18 08/04/18 History [Vitamin D3 50,000 unit Cap] Gabapentin [Neurontin 600mg 600 mg PO TID #90 tab 07/13/18 08/04/18 Rx tablet] cephalexin 500 mg tablet 500 mg PO Q12H 14 Days #28 tab 07/28/18 08/04/18 Rx losartan 100 100 mg PO DAILY 30 Days #30 tab 07/28/18 08/04/18 History mg-hydrochlorothiazide 25 mg tablet ondansetron HCl 4 mg tablet 4 mg PO Q6H PRN #30 tab 07/28/18 08/04/18 Rx temazepam 30 mg capsule 30 mg PO DAILY 30 Days #30 cap 07/28/18 08/04/18 History tramadol 50 mg tablet 50 mg PO TID 15 Days #60 tab 07/28/18 08/04/18 History Amlodipine Besylate [Norvasc 10mg 20 mg PO DAILY 08/03/18 08/04/18 History tablet] Oxycodone HCl/Acetaminophen 5 mg PO Q4-6H PRN 08/03/18 08/04/18 History [Oxycodone W/Apap 325mg Tablet] Height: 1.6 m Weight: 92.986 kg Laboratory Results:: Laboratory Results - last 24 hr 08/12/18 11:14: Sodium 138, Potassium 4.0, Chloride 101, Carbon Dioxide 28, Anion Gap 13.0, BUN 15, Creatinine 0.92, Estimated Creat Clear 99, Estimated GFR 63, Est GFR ( Amer) 76, Glucose 104, Calcium 9.1 Medical History: Reports:: Anxiety, Asthma, Depression, Hypertension Denies:: Cancer, Diabetes Mellitus Type 1, Diabetes Mellitus Type 2, MRSA, Seizures
[2018-08-12 12:27] VITALS: BP 109/57; PULSE 59; RESP 18; O2SAT 97
[2018-08-12 12:57] VITALS: BP 103/59; PULSE 61; RESP 18; O2SAT 97
[2018-08-12 13:27] VITALS: BP 110/52; PULSE 64; RESP 18; O2SAT 96
[2018-08-12 14:05] VITALS: BP 107/55; PULSE 61; RESP 18; O2SAT 97
== END 2018-08-12 14:10 | disposition home or self-care (01) ==
PROVIDERS: PCP Nurse Practitioner; Visit Provider Podiatrist
DX: Z98.890 Other specified postprocedural states (principal); M86.162 Other acute osteomyelitis, left tibia and fibula; Z72.0 Tobacco use
CPT/HCPCS: 36569; 71045; 80048; 96365; 96366; C1751; J3370

== ENCOUNTER 2018-08-13 10:28 | Outpatient (CLI) | payer MEDICARE, MEDICAID, SELFPAY ==
[2018-08-13 10:45] VITALS: BP 89/61; PULSE 68; RESP 18; O2SAT 97
[2018-08-13 11:15] VITALS: BP 93/47; PULSE 70; RESP 18; O2SAT 97
[2018-08-13 12:15] VITALS: BP 89/52; PULSE 72; RESP 18
[2018-08-13 13:00] VITALS: BP 97/57; PULSE 73; RESP 18
== END 2018-08-13 13:00 | disposition home or self-care (01) ==
LOC: INF 10:28
PROVIDERS: Visit Provider Podiatrist
DX: Z98.890 Other specified postprocedural states (principal); M86.162 Other acute osteomyelitis, left tibia and fibula; Z72.0 Tobacco use
CPT/HCPCS: 96365; 96366; J3370

== ENCOUNTER → 2018-08-14 10:22 | Outpatient (CLI) | payer MEDICARE, MEDICAID, SELFPAY ==
[2018-08-14 11:08] VITALS: BP 101/47; PULSE 74; RESP 16; TEMP 36.9; O2SAT 98; BMI 35.6
[2018-08-14 11:18] LABS: Vancomycin,Trough 12.4 mcg/ml (10.0-20.0)
[2018-08-14 11:19] LABS: Creatinine Clearance Estimated 89 mL/min (50-200); Estimated Glomerular Filt Rate 57 ml/min (>60); GFR (African American) 69 ML/MIN (>60)
--- NOTE | 2018-08-14 11:54 | HMH.PHACONS ---
- Pharmacy Consult Date: 08/14/18 Time: 11:54 Referring provider: DR. KENNEY Reason for Consult:: VANCOMYCIN LEVEL Allergies and ADEs:: Allergies Allergy/AdvReac Type Severity Reaction Status Date / Time methadone [METHADONE] Allergy Severe S-DIFF. Verified 08/12/18 15:03 BREATHING morphine [MORPHINE] Allergy Intermediate I-RASH Verified 08/12/18 15:03 amitriptyline [From ELAVIL] Allergy Mild Verified 08/12/18 15:03 Home Medications:: Home Medications Medication Instructions Recorded Confirmed Type Duloxetine HCl 60 mg PO DAILY 01/28/18 08/12/18 History Quetiapine Fumarate 100 mg PO DAILY 01/28/18 08/12/18 History aspirin 81 mg tablet,delayed 81 mg PO DAILY 01/29/18 08/12/18 History release budesonide-formoterol HFA 160 2 puff INHALATION BID 30 Days #10 01/29/18 08/12/18 History mcg-4.5 mcg/actuation aerosol inhaler Cetirizine HCl [Zyrtec] 10 mg PO DAILY 04/21/18 08/12/18 History Metoprolol Succinate 50 mg PO DAILY 04/21/18 08/12/18 History Cholecalciferol (Vitamin D3) 50,000 unit PO WEEKLY 06/17/18 08/12/18 History [Vitamin D3 50,000 unit Cap] Gabapentin [Neurontin 600mg 600 mg PO TID #90 tab 07/13/18 08/12/18 Rx tablet] cephalexin 500 mg tablet 500 mg PO Q12H 14 Days #28 tab 07/28/18 08/12/18 Rx losartan 100 100 mg PO DAILY 30 Days #30 tab 07/28/18 08/12/18 History mg-hydrochlorothiazide 25 mg tablet ondansetron HCl 4 mg tablet 4 mg PO Q6H PRN #30 tab 07/28/18 08/12/18 Rx temazepam 30 mg capsule 30 mg PO DAILY 30 Days #30 cap 07/28/18 08/12/18 History tramadol 50 mg tablet 50 mg PO TID 15 Days #60 tab 07/28/18 08/12/18 History Amlodipine Besylate [Norvasc 10mg 20 mg PO DAILY 08/03/18 08/12/18 History tablet] Oxycodone HCl/Acetaminophen 5 mg PO Q4-6H PRN 08/03/18 08/12/18 History [Oxycodone W/Apap 325mg Tablet] Height: 1.6 m Weight: 91.172 kg Laboratory Results:: Laboratory Results - last 24 hr 08/14/18 10:50: Vancomycin Trough 12.4 08/14/18 10:50: Creatinine 1.00, Estimated Creat Clear 89, Estimated GFR 57 L, Est GFR ( Amer) 69 Medical History: Reports:: Anxiety, Asthma, Depression, Hypertension Denies:: Cancer, Diabetes Mellitus Type 1, Diabetes Mellitus Type 2, MRSA, Seizures Assessment and Plan - Assessment and plan all Dx Assessment and Plan for all problems:: BASED ON PATIENT'S VANCOMYCIN TROUGH LEVEL OF 12.4 MCG/ML THIS AM, RECOMMEND PATIENT CONTINUE WITH CURRENT DOSE OF VANCOMYCIN 2000 MG Q24H AT THIS TIME. PHARMACY WILL FOLLOW AND ADJUST APPROPRIATE. GEORGE SEGURA, PHARMD
[2018-08-14 14:14] VITALS: BP 106/45; PULSE 70; RESP 16; TEMP 36.8; O2SAT 98
== END ==
PROVIDERS: PCP Nurse Practitioner; Visit Provider Podiatrist
DX: Z98.890 Other specified postprocedural states (principal); M86.162 Other acute osteomyelitis, left tibia and fibula; Z72.0 Tobacco use
CPT/HCPCS: 80202; 82565; 96365; 96366; J3370

== ENCOUNTER → 2018-08-15 09:34 | Outpatient (CLI) | payer MEDICARE, MEDICAID, SELFPAY ==
[2018-08-15 09:50] VITALS: BP 88/50; PULSE 70; RESP 17; TEMP 36.3; O2SAT 94
--- NOTE | 2018-08-15 10:21 | PC.NURSE ---
PER DR DODGE GIVE PATIENT 1 LITER NS BOLUS AND DRAW CBC
[2018-08-15 10:33] LABS: Basophils # 0.1 K/mm3 (0-0.2); Basophils % 0.7 % (0.1-2.0); Eosinophils # 0.3 K/mm3 (0.0-0.4); Eosinophils % 4.8 % (0.1-12.0); Hematocrit 30.3 % (37.0-47.0); Hemoglobin 9.7 g/dL (12.2-16.2); Lymphocytes # 1.9 K/mm3 (0.7-4.5); Mean Corpuscular Hemoglobin 27.1 pg (27.0-31.2); Mean Corpuscular Volume 84.7 fl (81-99); Mean Platelet Volume 7.3 fl (7.4-10.4); Monocytes # 0.4 K/mm3 (0.1-1.0); Monocytes % 5.9 % (1.7-9.3); Neutrophils # 4.1 K/mm3 (1.8-7.8); Neutrophils % 60.7 % (37.0-80.0); Platelet Count 299 K/mm3 (142-424); Red Blood Count 3.58 M/mm3 (4.20-5.40); Red Cell Distribution Width 14.4 % (11.5-17.5); White Blood Count 6.7 K/mm3 (4.8-10.8)
[2018-08-15 12:30] VITALS: BP 100/51; PULSE 74; RESP 18; TEMP 36.7; O2SAT 96
== END ==
PROVIDERS: Family Medicine; PCP Nurse Practitioner; Visit Provider Podiatrist
DX: Z98.890 Other specified postprocedural states (principal); M86.162 Other acute osteomyelitis, left tibia and fibula; Z72.0 Tobacco use
CPT/HCPCS: 85025; 96360; 96365; 96366; J3370

== ENCOUNTER 2018-08-16 11:05 | Outpatient (CLI) | payer MEDICARE, MEDICAID, SELFPAY ==
[2018-08-16 11:30] VITALS: BP 93/54; PULSE 65; RESP 18
[2018-08-16 13:35] VITALS: BP 92/50; PULSE 67; RESP 18; O2SAT 95
--- NOTE | 2018-08-16 14:28 | SW/DCPLANNER ---
Received notification today from Heidy Del Castillo. She has asked that I speak with this patient and set her up with home health services rather than outpatient due to patient preference. I spoke with patient this morning in outpatient infusion and after explaining to patient the length of need (6-8 weeks) and guidelines for home health patient has chose to continue to keep coming back as an outpatient. I have informed patient to please ask staff to contact me if she has any further questions during her visits to [facility].
== END 2018-08-16 13:35 | disposition home or self-care (01) ==
LOC: INF 11:05
PROVIDERS: Visit Provider Podiatrist
DX: Z98.890 Other specified postprocedural states (principal); M86.162 Other acute osteomyelitis, left tibia and fibula; Z72.0 Tobacco use
CPT/HCPCS: 96365; 96366; J3370

== ENCOUNTER 2018-08-17 10:41 | Outpatient (CLI) | payer MEDICARE, MEDICAID, SELFPAY ==
[2018-08-17 11:00] VITALS: BP 130/105; PULSE 70; RESP 20; TEMP 36.9; O2SAT 95
[2018-08-17 11:30] VITALS: BP 105/62; PULSE 72; RESP 20; TEMP 36.7
[2018-08-17 12:00] VITALS: BP 106/68; PULSE 68; RESP 20; TEMP 36.9; O2SAT 95
[2018-08-17 12:30] VITALS: BP 110/68; PULSE 70; RESP 20; TEMP 36.9
[2018-08-17 13:10] VITALS: BP 115/74; PULSE 68; RESP 20; TEMP 36.7
== END 2018-08-17 13:10 | disposition home or self-care (01) ==
LOC: INF 10:41
PROVIDERS: Visit Provider Podiatrist
DX: M86.162 Other acute osteomyelitis, left tibia and fibula (principal)
CPT/HCPCS: 96365; 96366; J3370

== ENCOUNTER 2018-08-18 10:30 | Outpatient (CLI) | payer MEDICARE, MEDICAID, SELFPAY ==
[2018-08-18 10:37] VITALS: BMI 36.3
[2018-08-18 11:08] LABS: Anion Gap 12.7 mEq/L (5-15); Blood Urea Nitrogen 17 mg/dL (7-18); Calcium 9.4 mg/dL (8.5-10.1); Carbon Dioxide 29 mmol/L (21.0-32.0); Chloride 101 mmol/L (98-107); Creatinine Clearance Estimated 83 mL/min (50-200); Estimated Glomerular Filt Rate 51 ml/min (>60); GFR (African American) 62 ML/MIN (>60); Glucose 117 mg/dL (74-106); Potassium 3.7 mmoL/L (3.5-5.1); Sodium 139 mmol/L (136-145); Vancomycin,Trough 17.2 mcg/ml (10.0-20.0)
--- NOTE | 2018-08-18 11:26 | HMH.PHACONS ---
- Pharmacy Consult Date: 08/18/18 Time: 11:26 Referring provider: DR. KENNEY Reason for Consult:: VANCOMYCIN TROUGH LEVEL Allergies and ADEs:: Allergies Allergy/AdvReac Type Severity Reaction Status Date / Time methadone [METHADONE] Allergy Severe S-DIFF. Verified 08/12/18 15:03 BREATHING morphine [MORPHINE] Allergy Intermediate I-RASH Verified 08/12/18 15:03 amitriptyline [From ELAVIL] Allergy Mild Verified 08/12/18 15:03 Home Medications:: Home Medications Medication Instructions Recorded Confirmed Type Duloxetine HCl 60 mg PO DAILY 01/28/18 08/17/18 History Quetiapine Fumarate 100 mg PO DAILY 01/28/18 08/17/18 History aspirin 81 mg tablet,delayed 81 mg PO DAILY 01/29/18 08/17/18 History release budesonide-formoterol HFA 160 2 puff INHALATION BID 30 Days #10 01/29/18 08/17/18 History mcg-4.5 mcg/actuation aerosol inhaler Cetirizine HCl [Zyrtec] 10 mg PO DAILY 04/21/18 08/17/18 History Metoprolol Succinate 50 mg PO DAILY 04/21/18 08/17/18 History Cholecalciferol (Vitamin D3) 50,000 unit PO WEEKLY 06/17/18 08/17/18 History [Vitamin D3 50,000 unit Cap] Gabapentin [Neurontin 600mg 600 mg PO TID #90 tab 07/13/18 08/17/18 Rx tablet] cephalexin 500 mg tablet 500 mg PO Q12H 14 Days #28 tab 07/28/18 08/17/18 Rx losartan 100 100 mg PO DAILY 30 Days #30 tab 07/28/18 08/17/18 History mg-hydrochlorothiazide 25 mg tablet ondansetron HCl 4 mg tablet 4 mg PO Q6H PRN #30 tab 07/28/18 08/17/18 Rx temazepam 30 mg capsule 30 mg PO DAILY 30 Days #30 cap 07/28/18 08/17/18 History tramadol 50 mg tablet 50 mg PO TID 15 Days #60 tab 07/28/18 08/17/18 History Amlodipine Besylate [Norvasc 10mg 20 mg PO DAILY 08/03/18 08/17/18 History tablet] Oxycodone HCl/Acetaminophen 5 mg PO Q4-6H PRN 08/03/18 08/17/18 History [Oxycodone W/Apap 325mg Tablet] Height: 1.6 m Weight: 92.986 kg Laboratory Results:: Laboratory Results - last 24 hr 08/18/18 10:40: Sodium 139, Potassium 3.7, Chloride 101, Carbon Dioxide 29, Anion Gap 12.7, BUN 17, Creatinine 1.10 H, Estimated Creat Clear 83, Estimated GFR 51 L, Est GFR ( Amer) 62, Glucose 117 H, Calcium 9.4, Vancomycin Trough 17.2 Medical History: Reports:: Anxiety, Asthma, Depression, Hypertension Denies:: Cancer, Diabetes Mellitus Type 1, Diabetes Mellitus Type 2, MRSA, Seizures Assessment and Plan - Assessment and plan all Dx Assessment and Plan for all problems:: BASED ON PATIENT FACTORS AND VANCOMYCIN TROUGH LEVEL, RECOMMEND CONTINUING VANCOMYCIN 2 GM IV Q24H. PHARMACY WILL CONTINUE TO FOLLOW DAILY AND ADJUST APPROPRIATE.
[2018-08-18 11:40] VITALS: BP 104/62; PULSE 67; RESP 18; O2SAT 92
[2018-08-18 12:40] VITALS: BP 101/53; PULSE 75; RESP 18
[2018-08-18 13:40] VITALS: BP 95/50; PULSE 70; RESP 18
== END 2018-08-18 13:55 | disposition home or self-care (01) ==
LOC: INF 10:35
PROVIDERS: Visit Provider Podiatrist
DX: Z98.890 Other specified postprocedural states (principal); M86.162 Other acute osteomyelitis, left tibia and fibula; Z72.0 Tobacco use
CPT/HCPCS: 80048; 80202; 96365; 96366; J3370

== ENCOUNTER 2018-08-19 10:37 | Outpatient (CLI) | payer MEDICARE, MEDICAID, SELFPAY ==
[2018-08-19 10:20] VITALS: BP 83/46; PULSE 65; RESP 18; TEMP 36.6; O2SAT 92
[2018-08-19 10:50] VITALS: BP 93/55; PULSE 68; RESP 20; TEMP 36.6; O2SAT 92
[2018-08-19 11:15] VITALS: BP 98/55; PULSE 64; RESP 20; TEMP 36.6; O2SAT 92
[2018-08-19 12:00] VITALS: BP 107/63; PULSE 74; RESP 20; TEMP 36.6; O2SAT 93
[2018-08-19 12:30] VITALS: BP 85/49; PULSE 75; RESP 20; TEMP 36.6; O2SAT 93
[2018-08-19 12:58] VITALS: BP 79/42; PULSE 79; RESP 20; TEMP 36.6; O2SAT 92
[2018-08-19 13:08] VITALS: BMI 36.3
== END 2018-08-19 12:58 | disposition home or self-care (01) ==
LOC: INF 10:37
PROVIDERS: Visit Provider Podiatrist
DX: Z98.890 Other specified postprocedural states (principal); M86.162 Other acute osteomyelitis, left tibia and fibula; Z72.0 Tobacco use
CPT/HCPCS: 96365; 96366; J3370

== ENCOUNTER 2018-08-20 10:25 | Outpatient (CLI) | payer MEDICARE, MEDICAID, SELFPAY ==
[2018-08-20 10:40] VITALS: BP 104/41; PULSE 67; RESP 18; O2SAT 93
[2018-08-20 11:10] VITALS: BP 97/54; PULSE 61; RESP 16
[2018-08-20 11:40] VITALS: BP 81/49; PULSE 67; RESP 16
[2018-08-20 12:10] VITALS: BP 88/50; PULSE 66; RESP 16
[2018-08-20 12:50] VITALS: BP 90/50; PULSE 64; RESP 16
== END 2018-08-20 13:05 | disposition home or self-care (01) ==
LOC: INF 10:32
PROVIDERS: Visit Provider Podiatrist
DX: Z98.890 Other specified postprocedural states (principal); M86.162 Other acute osteomyelitis, left tibia and fibula; Z72.0 Tobacco use
CPT/HCPCS: 96365; 96366; J3370

== ENCOUNTER 2018-08-21 10:26 | Outpatient (CLI) | payer MEDICARE, MEDICAID, SELFPAY ==
[2018-08-21 10:37] VITALS: BMI 35.6
[2018-08-21 10:39] VITALS: BP 140/81; PULSE 68; RESP 18; O2SAT 94
[2018-08-21 10:59] LABS: Anion Gap 9.8 mEq/L (5-15); Carbon Dioxide 29 mmol/L (21.0-32.0); Chloride 98 mmol/L (98-107); Potassium 3.5 mmoL/L (3.5-5.1); Sodium 137 mmol/L (136-145)
[2018-08-21 11:00] LABS: Blood Urea Nitrogen 16 mg/dL (7-18); Calcium 9.5 mg/dL (8.5-10.1); Creatinine Clearance Estimated 57 mL/min (50-200); Creatinine,Serum 1.57 mg/dL (0.55-1.02); Estimated Glomerular Filt Rate 34 ml/min (>60); GFR (African American) 41 ML/MIN (>60); Glucose 135 mg/dL (74-106)
[2018-08-21 11:05] LABS: Vancomycin,Trough 18.5 mcg/ml (10.0-20.0)
--- NOTE | 2018-08-21 11:35 | P.CONPHA_ITS ---
- Pharmacy Consult Date: 08/21/18 Time: 11:33 Referring provider: DR. KENNEY Reason for Consult:: VANCOMYCIN DOSE ADJUSTMENT Allergies and ADEs:: Allergies Allergy/AdvReac Type Severity Reaction Status Date / Time methadone [METHADONE] Allergy Severe S-DIFF. Verified 08/12/18 15:03 BREATHING morphine [MORPHINE] Allergy Intermediate I-RASH Verified 08/12/18 15:03 amitriptyline [From ELAVIL] Allergy Mild Verified 08/12/18 15:03 Home Medications:: Home Medications Medication Instructions Recorded Confirmed Type Duloxetine HCl 60 mg PO DAILY 01/28/18 08/20/18 History Quetiapine Fumarate 100 mg PO DAILY 01/28/18 08/20/18 History aspirin 81 mg tablet,delayed 81 mg PO DAILY 01/29/18 08/20/18 History release budesonide-formoterol HFA 160 2 puff INHALATION BID 30 Days #10 01/29/18 08/20/18 History mcg-4.5 mcg/actuation aerosol inhaler Cetirizine HCl [Zyrtec] 10 mg PO DAILY 04/21/18 08/20/18 History Metoprolol Succinate 50 mg PO DAILY 04/21/18 08/20/18 History Cholecalciferol (Vitamin D3) 50,000 unit PO WEEKLY 06/17/18 08/20/18 History [Vitamin D3 50,000 unit Cap] Gabapentin [Neurontin 600mg 600 mg PO TID #90 tab 07/13/18 08/20/18 Rx tablet] losartan 100 100 mg PO DAILY 30 Days #30 tab 07/28/18 08/20/18 History mg-hydrochlorothiazide 25 mg tablet ondansetron HCl 4 mg tablet 4 mg PO Q6H PRN #30 tab 07/28/18 08/20/18 Rx temazepam 30 mg capsule 30 mg PO DAILY 30 Days #30 cap 07/28/18 08/20/18 History tramadol 50 mg tablet 50 mg PO TID 15 Days #60 tab 07/28/18 08/20/18 History Amlodipine Besylate [Norvasc 10mg 20 mg PO DAILY 08/03/18 08/20/18 History tablet] Oxycodone HCl/Acetaminophen 5 mg PO Q4-6H PRN 08/03/18 08/20/18 History [Oxycodone W/Apap 325mg Tablet] Albuterol Sulfate [Albuterol 0.63 mg IH TID 08/18/18 08/20/18 History Sulfate 0.63mg/3ml Neb] Tizanidine HCl 4 mg PO HS 08/18/18 08/20/18 History Height: 1.6 m Weight: 91.172 kg Laboratory Results:: Laboratory Results - last 24 hr 08/21/18 10:44: Vancomycin Trough 18.5 08/21/18 10:44: Sodium 137, Potassium 3.5, Chloride 98, Carbon Dioxide 29, Anion Gap 9.8, BUN 16, Creatinine 1.57 H, Estimated Creat Clear 57, Estimated GFR 34 L , Est GFR ( Amer) 41 L, Glucose 135 H, Calcium 9.5 Medical History: Reports:: Anxiety, Asthma, Depression, Hypertension Denies:: Cancer, Diabetes Mellitus Type 1, Diabetes Mellitus Type 2, MRSA, Seizures Assessment and Plan - Assessment and plan all Dx Assessment and Plan for all problems:: PRIOR TO VANCOMYCIN DOSE TODAY, PATIENT'S LABS WERE SCR=1.57 AND TROUGH OF 18.5. BASED ON WORSENING RENAL FUNCTION AND INCREASE IN TROUGH LEVEL FROM PREVIOUS LAB, RECOMMEND DECREASING VANCOMYCIN DOSE FROM 2GM DAILY TO 1,750MG DAILY. ANOTHER TROUGH LEVEL AND BMP WILL BE OBTAINED 08/24/18 PRIOR TO DOSE. PHARMACY WILL CONTINUE TO MONITOR AND ADJUST VANCOMYCIN DOSE APPROPRIATE. -ELIZA MARTELL, JOEYD
[2018-08-21 13:58] VITALS: BP 101/50; PULSE 69; RESP 18; O2SAT 96
== END 2018-08-21 13:55 | disposition home or self-care (01) ==
LOC: INF 10:27
PROVIDERS: PCP Nurse Practitioner; Visit Provider Podiatrist
DX: Z98.890 Other specified postprocedural states (principal); M86.162 Other acute osteomyelitis, left tibia and fibula; Z72.0 Tobacco use
CPT/HCPCS: 80048; 80202; 96365; 96366; J3370

== ENCOUNTER 2018-08-22 10:45 | Outpatient (CLI) | payer MEDICARE, MEDICAID, SELFPAY ==
[2018-08-22 10:45] VITALS: BP 96/54; PULSE 73; RESP 16; TEMP 36.6; O2SAT 94
[2018-08-22 10:47] VITALS: BMI 35.6
[2018-08-22 10:54] VITALS: BP 89/47; PULSE 66; RESP 16; O2SAT 96
[2018-08-22 13:00] VITALS: BP 96/58; PULSE 78; RESP 18; TEMP 36.7; O2SAT 96
== END 2018-08-22 13:25 | disposition home or self-care (01) ==
PROVIDERS: PCP Nurse Practitioner; Visit Provider Podiatrist
DX: Z98.890 Other specified postprocedural states (principal); M86.462 Chronic osteomyelitis with draining sinus, left tibia and fibula; Z72.0 Tobacco use
CPT/HCPCS: 96365; 96366; G0463; J3370

== ENCOUNTER → 2018-08-23 10:26 | Outpatient (CLI) | payer MEDICARE, MEDICAID, SELFPAY ==
[2018-08-23 10:26] VITALS: BMI 36.3
[2018-08-23 10:44] LABS: Anion Gap 14.8 mEq/L (5-15); Blood Urea Nitrogen 20 mg/dL (7-18); Calcium 9.4 mg/dL (8.5-10.1); Carbon Dioxide 28 mmol/L (21.0-32.0); Chloride 97 mmol/L (98-107); Creatinine Clearance Estimated 46 mL/min (50-200); Creatinine,Serum 1.98 mg/dL (0.55-1.02); Estimated Glomerular Filt Rate 26 ml/min (>60); GFR (African American) 31 ML/MIN (>60); Glucose 166 mg/dL (74-106); Potassium 3.8 mmoL/L (3.5-5.1); Sodium 136 mmol/L (136-145)
[2018-08-23 11:21] LABS: Vancomycin,Trough 20.6 mcg/ml (10.0-20.0)
--- NOTE | 2018-08-24 08:36 | HMH.PHACONS ---
- Pharmacy Consult Date: 08/23/18 Time: 11:00 Referring provider: DR. KENNEY Reason for Consult:: VANCOMYCIN LEVEL AND DOSE CHANGE Allergies and ADEs:: Allergies Allergy/AdvReac Type Severity Reaction Status Date / Time methadone [METHADONE] Allergy Severe S-DIFF. Verified 08/12/18 15:03 BREATHING morphine [MORPHINE] Allergy Intermediate I-RASH Verified 08/12/18 15:03 amitriptyline [From ELAVIL] Allergy Mild Verified 08/12/18 15:03 Home Medications:: Home Medications Medication Instructions Recorded Confirmed Type Duloxetine HCl 60 mg PO DAILY 01/28/18 08/20/18 History Quetiapine Fumarate 100 mg PO DAILY 01/28/18 08/20/18 History aspirin 81 mg tablet,delayed 81 mg PO DAILY 01/29/18 08/20/18 History release budesonide-formoterol HFA 160 2 puff INHALATION BID 30 Days #10 01/29/18 08/20/18 History mcg-4.5 mcg/actuation aerosol inhaler Cetirizine HCl [Zyrtec] 10 mg PO DAILY 04/21/18 08/20/18 History Metoprolol Succinate 50 mg PO DAILY 04/21/18 08/20/18 History Cholecalciferol (Vitamin D3) 50,000 unit PO WEEKLY 06/17/18 08/20/18 History [Vitamin D3 50,000 unit Cap] Gabapentin [Neurontin 600mg 600 mg PO TID #90 tab 07/13/18 08/20/18 Rx tablet] losartan 100 100 mg PO DAILY 30 Days #30 tab 07/28/18 08/20/18 History mg-hydrochlorothiazide 25 mg tablet ondansetron HCl 4 mg tablet 4 mg PO Q6H PRN #30 tab 07/28/18 08/20/18 Rx temazepam 30 mg capsule 30 mg PO DAILY 30 Days #30 cap 07/28/18 08/20/18 History tramadol 50 mg tablet 50 mg PO TID 15 Days #60 tab 07/28/18 08/20/18 History Amlodipine Besylate [Norvasc 10mg 20 mg PO DAILY 08/03/18 08/20/18 History tablet] Oxycodone HCl/Acetaminophen 5 mg PO Q4-6H PRN 08/03/18 08/20/18 History [Oxycodone W/Apap 325mg Tablet] Albuterol Sulfate [Albuterol 0.63 mg IH TID 08/18/18 08/20/18 History Sulfate 0.63mg/3ml Neb] Tizanidine HCl 4 mg PO HS 08/18/18 08/20/18 History Height: 1.6 m Weight: 92.986 kg Laboratory Results:: Laboratory Results - last 24 hr 08/23/18 10:30: Sodium 136, Potassium 3.8, Chloride 97 L, Carbon Dioxide 28, Anion Gap 14.8, BUN 20 H, Creatinine 1.98 H D, Estimated Creat Clear 46, Estimated GFR 26 L, Est GFR ( Amer) 31 L D, Glucose 166 H, Calcium 9.4, Vancomycin Trough 20.6 H Medical History: Reports:: Anxiety, Asthma, Depression, Hypertension Denies:: Cancer, Diabetes Mellitus Type 1, Diabetes Mellitus Type 2, MRSA, Seizures Assessment and Plan - Assessment and plan all Dx Assessment and Plan for all problems:: PATIENT'S VANCOMYCIN LEVEL WAS 20.6 MCG/ML ON 08/23/18. RECOMMENDED PATIENT HOLD DOSE ON 08/23/18 AND RESTART TODAY AT 1500 MG Q24H. PHARMACY WILL FOLLOW DAILY AND ADJUST APPROPRIATE. GEORGE SEGURA, PHARMD
== END ==
PROVIDERS: Visit Provider Podiatrist
DX: Z98.890 Other specified postprocedural states (principal); M86.162 Other acute osteomyelitis, left tibia and fibula; Z72.0 Tobacco use
CPT/HCPCS: 80048; 80202

== ENCOUNTER 2018-08-25 10:19 | Outpatient (CLI) | payer MEDICARE, MEDICAID, SELFPAY ==
[2018-08-25 10:30] VITALS: BP 82/51; PULSE 62; RESP 18; TEMP 36.7; O2SAT 93
[2018-08-25 11:00] VITALS: BP 89/60; PULSE 85; RESP 18
[2018-08-25 12:30] VITALS: BP 110/83; PULSE 72; RESP 18
[2018-08-25 13:00] VITALS: BP 105/63; PULSE 62; RESP 18
[2018-08-25 13:30] VITALS: BP 103/54; PULSE 63; RESP 18
== END 2018-08-25 13:30 | disposition home or self-care (01) ==
LOC: INF 10:19
PROVIDERS: Visit Provider Podiatrist
DX: M86.162 Other acute osteomyelitis, left tibia and fibula (principal); Z98.890 Other specified postprocedural states; Z72.0 Tobacco use
CPT/HCPCS: 96360; 96365; 96366; J3370

== ENCOUNTER 2018-08-26 13:38 | Outpatient (CLI) | payer MEDICARE, MEDICAID, SELFPAY ==
[2018-08-26 13:30] VITALS: BP 111/55; PULSE 74; RESP 18; TEMP 36.9; O2SAT 93
[2018-08-26 13:38] VITALS: BMI 36.3
[2018-08-26 14:23] LABS: Microscopic, Urine URINE MICROSCOPIC (MICROSCOPIC)
[2018-08-26 14:30] LABS: Basophils % 0.8 % (0.1-2.0); Eosinophils # 0.3 K/mm3 (0.0-0.4); Eosinophils % 9.3 % (0.1-12.0); Hematocrit 31.6 % (37.0-47.0); Hemoglobin 10.2 g/dL (12.2-16.2); Lymphocytes # 0.9 K/mm3 (0.7-4.5); Lymphocytes % 28.5 % (10-50); Mean Corpuscular HGB Conc 32.2 g/dL (31.8-35.4); Mean Corpuscular Hemoglobin 26.9 pg (27.0-31.2); Mean Corpuscular Volume 83.7 fl (81-99); Mean Platelet Volume 7.9 fl (7.4-10.4); Monocytes # 0.1 K/mm3 (0.1-1.0); Monocytes % 4.4 % (1.7-9.3); Neutrophils # 1.8 K/mm3 (1.8-7.8); Neutrophils % 57.1 % (37.0-80.0); Platelet Count 204 K/mm3 (142-424); Red Blood Count 3.78 M/mm3 (4.20-5.40); Red Cell Distribution Width 14.2 % (11.5-17.5); White Blood Count 3.2 K/mm3 (4.8-10.8)
[2018-08-26 14:32] LABS: Appearance,Urine CLEAR (Clear); Bilirubin,Urine Negative (Negative); Blood, Urine Negative (Negative); Color,Urine YELLOW (Yellow); Glucose,Urine (UA) Negative (Negative); Ketones,Urine Negative (Negative); Leukocyte Esterase,Urine Negative (Negative); Nitrate,Urine Negative (Negative); Protein,Urine TRACE (Negative); Urobilinogen,Urine 0.2 EU/dl (0.2)
[2018-08-26 14:47] LABS: Alanine Aminotransferase 30 U/L (12-78); Albumin Level 3.3 gm/dL (3.4-5.0); Albumin/Globulin Ratio 0.8 (1.1-1.8); Alkaline Phosphatase 122 U/L (46-116); Anion Gap 14.2 mEq/L (5-15); Aspartate Amino Transferase 41 U/L (15-37); Bilirubin,Total 0.4 mg/dL (0.2-1.0); Blood Urea Nitrogen 24 mg/dL (7-18); C-Reactive Protein 7.3 mg/L (0.0-0.9); Calcium 8.9 mg/dL (8.5-10.1); Carbon Dioxide 26 mmol/L (21.0-32.0); Chloride 99 mmol/L (98-107); Creatinine Clearance Estimated 48 mL/min (50-200); Estimated Glomerular Filt Rate 27 ml/min (>60); GFR (African American) 33 ML/MIN (>60); Globulin 4.2 gm/dl (1.3-3.2); Glucose 199 mg/dL (74-106); Potassium 3.2 mmoL/L (3.5-5.1); Sodium 136 mmol/L (136-145); Total Protein,Serum 7.5 gm/dL (6.4-8.2)
[2018-08-26 15:12] LABS: Bacteria,Urine 1+ /lpf; Squamous Epithelial Cell,Urine 20-50 #/hpf (0-5)
[2018-08-26 15:14] LABS: Vancomycin,Trough 12.5 mcg/ml (10.0-20.0)
[2018-08-26 15:20] VITALS: BP 74/62; PULSE 72; RESP 18; TEMP 36.9; O2SAT 93
--- NOTE | 2018-08-26 15:22 | HMH.PHACONS ---
- Pharmacy Consult Date: 08/26/18 Time: 15:22 Referring provider: DR. KENNEY Reason for Consult:: VANCOMYCIN TROUGH LEVEL Allergies and ADEs:: Allergies Allergy/AdvReac Type Severity Reaction Status Date / Time methadone [METHADONE] Allergy Severe S-DIFF. Verified 08/26/18 11:54 BREATHING morphine [MORPHINE] Allergy Intermediate I-RASH Verified 08/26/18 11:54 amitriptyline [From ELAVIL] Allergy Mild Verified 08/26/18 11:54 Home Medications:: Home Medications Medication Instructions Recorded Confirmed Type Duloxetine HCl 60 mg PO DAILY 01/28/18 08/26/18 History Quetiapine Fumarate 100 mg PO DAILY 01/28/18 08/26/18 History aspirin 81 mg tablet,delayed 81 mg PO DAILY 01/29/18 08/26/18 History release budesonide-formoterol HFA 160 2 puff INHALATION BID 30 Days #10 01/29/18 08/26/18 History mcg-4.5 mcg/actuation aerosol inhaler Cetirizine HCl [Zyrtec] 10 mg PO DAILY 04/21/18 08/26/18 History Metoprolol Succinate 50 mg PO DAILY 04/21/18 08/26/18 History Cholecalciferol (Vitamin D3) 50,000 unit PO WEEKLY 06/17/18 08/26/18 History [Vitamin D3 50,000 unit Cap] Gabapentin [Neurontin 600mg 600 mg PO TID #90 tab 07/13/18 08/26/18 Rx tablet] losartan 100 100 mg PO DAILY 30 Days #30 tab 07/28/18 08/26/18 History mg-hydrochlorothiazide 25 mg tablet ondansetron HCl 4 mg tablet 4 mg PO Q6H PRN #30 tab 07/28/18 08/26/18 Rx temazepam 30 mg capsule 30 mg PO DAILY 30 Days #30 cap 07/28/18 08/26/18 History tramadol 50 mg tablet 50 mg PO TID 15 Days #60 tab 07/28/18 08/26/18 History Amlodipine Besylate [Norvasc 10mg 20 mg PO DAILY 08/03/18 08/26/18 History tablet] Oxycodone HCl/Acetaminophen 5 mg PO Q4-6H PRN 08/03/18 08/26/18 History [Oxycodone W/Apap 325mg Tablet] Albuterol Sulfate [Albuterol 0.63 mg IH TID 08/18/18 08/26/18 History Sulfate 0.63mg/3ml Neb] Tizanidine HCl 4 mg PO HS 08/18/18 08/26/18 History Height: 1.6 m Weight: 92.986 kg Laboratory Results:: Laboratory Results - last 24 hr 08/26/18 13:41: Urine Color Yellow, Urine Appearance Clear, Urine pH 6.0, Ur Specific [place] 1.020, Urine Protein Trace, Urine Glucose (UA) Negative, Urine Ketones Negative, Urine Blood Negative, Urine Nitrate Negative, Urine Bilirubin Negative, Urine Urobilinogen 0.2, Ur Leukocyte Esterase Negative, Urine RBC None, Urine WBC 3-5, Ur Squamous Epith Cells 20-50, Urine Bacteria 1+ 08/26/18 13:53: WBC 3.2 L, RBC 3.78 L, Hgb 10.2 L, Hct 31.6 L, MCV 83.7, MCH 26.9 L, MCHC 32.2, RDW 14.2, Plt Count 204, MPV 7.9, Neut % (Auto) 57.1, Lymph % (Auto) 28.5, Coal % (Auto) 4.4, Eos % (Auto) 9.3, Baso % (Auto) 0.8, Neut # (Auto) 1.8, Lymph # (Auto) 0.9, Coal # (Auto) 0.1, Eos # (Auto) 0.3, Baso # (Auto) 0.0 08/26/18 13:53: Sodium 136, Potassium 3.2 L, Chloride 99, Carbon Dioxide 26, Anion Gap 14.2, BUN 24 H, Creatinine 1.90 H, Estimated Creat Clear 48, Estimated GFR 27 L, Est GFR ( Amer) 33 L, Glucose 199 H, Calcium 8.9, Total Bilirubin 0.4, AST 41 H, ALT 30, Alkaline Phosphatase 122 H, C-Reactive Protein 7.3 H, Total Protein 7.5, Albumin 3.3 L, Globulin 4.2 H, Albumin/Globulin Ratio 0.8 L 08/26/18 13:53: Vancomycin Trough 12.5 Medical History: Reports:: Anxiety, Asthma, Depression, Hypertension Denies:: Cancer, Diabetes Mellitus Type 1, Diabetes Mellitus Type 2, MRSA, Seizures Assessment and Plan - Assessment and plan all Dx Assessment and Plan for all problems:: BASED ON PATIENT VANCOMYCIN LEVEL OF 12.5 MCG/ML ABOUT 5 HOURS POST DOSE DUE TIME, RECOMMEND CONTINUING WITH CURRENT DOSE OF VANCOMYCIN 1500 Q24H AT THIS TIME. PHARMACY WILL FOLLOW DAILY AND ADJUST APPROPRIATE. GEORGE SEGURA, PHARMD
--- NOTE | 2018-08-26 15:25 | P.CONPHA_ITS ---
- Pharmacy Consult Date: 08/26/18 Time: 15:22 Referring provider: DR. KENNEY Reason for Consult:: VANCOMYCIN TROUGH LEVEL Allergies and ADEs:: Allergies Allergy/AdvReac Type Severity Reaction Status Date / Time methadone [METHADONE] Allergy Severe S-DIFF. Verified 08/26/18 11:54 BREATHING morphine [MORPHINE] Allergy Intermediate I-RASH Verified 08/26/18 11:54 amitriptyline [From ELAVIL] Allergy Mild Verified 08/26/18 11:54 Home Medications:: Home Medications Medication Instructions Recorded Confirmed Type Duloxetine HCl 60 mg PO DAILY 01/28/18 08/26/18 History Quetiapine Fumarate 100 mg PO DAILY 01/28/18 08/26/18 History aspirin 81 mg tablet,delayed 81 mg PO DAILY 01/29/18 08/26/18 History release budesonide-formoterol HFA 160 2 puff INHALATION BID 30 Days #10 01/29/18 08/26/18 History mcg-4.5 mcg/actuation aerosol inhaler Cetirizine HCl [Zyrtec] 10 mg PO DAILY 04/21/18 08/26/18 History Metoprolol Succinate 50 mg PO DAILY 04/21/18 08/26/18 History Cholecalciferol (Vitamin D3) 50,000 unit PO WEEKLY 06/17/18 08/26/18 History [Vitamin D3 50,000 unit Cap] Gabapentin [Neurontin 600mg 600 mg PO TID #90 tab 07/13/18 08/26/18 Rx tablet] losartan 100 100 mg PO DAILY 30 Days #30 tab 07/28/18 08/26/18 History mg-hydrochlorothiazide 25 mg tablet ondansetron HCl 4 mg tablet 4 mg PO Q6H PRN #30 tab 07/28/18 08/26/18 Rx temazepam 30 mg capsule 30 mg PO DAILY 30 Days #30 cap 07/28/18 08/26/18 History tramadol 50 mg tablet 50 mg PO TID 15 Days #60 tab 07/28/18 08/26/18 History Amlodipine Besylate [Norvasc 10mg 20 mg PO DAILY 08/03/18 08/26/18 History tablet] Oxycodone HCl/Acetaminophen 5 mg PO Q4-6H PRN 08/03/18 08/26/18 History [Oxycodone W/Apap 325mg Tablet] Albuterol Sulfate [Albuterol 0.63 mg IH TID 08/18/18 08/26/18 History Sulfate 0.63mg/3ml Neb] Tizanidine HCl 4 mg PO HS 08/18/18 08/26/18 History Height: 1.6 m Weight: 92.986 kg Laboratory Results:: Laboratory Results - last 24 hr 08/26/18 13:41: Urine Color Yellow, Urine Appearance Clear, Urine pH 6.0, Ur Specific [place] 1.020, Urine Protein Trace, Urine Glucose (UA) Negative, Urine Ketones Negative, Urine Blood Negative, Urine Nitrate Negative, Urine Bilirubin Negative, Urine Urobilinogen 0.2, Ur Leukocyte Esterase Negative, Urine RBC None, Urine WBC 3-5, Ur Squamous Epith Cells 20-50, Urine Bacteria 1+ 08/26/18 13:53: WBC 3.2 L, RBC 3.78 L, Hgb 10.2 L, Hct 31.6 L, MCV 83.7, MCH 26.9 L, MCHC 32.2, RDW 14.2, Plt Count 204, MPV 7.9, Neut % (Auto) 57.1, Lymph % (Auto) 28.5, [place] % (Auto) 4.4, Eos % (Auto) 9.3, Baso % (Auto) 0.8, Neut # (Auto) 1.8, Lymph # (Auto) 0.9, [place] # (Auto) 0.1, Eos # (Auto) 0.3, Baso # (Auto) 0.0 08/26/18 13:53: Sodium 136, Potassium 3.2 L, Chloride 99, Carbon Dioxide 26, Anion Gap 14.2, BUN 24 H, Creatinine 1.90 H, Estimated Creat Clear 48, Estimated GFR 27 L, Est GFR ( Amer) 33 L, Glucose 199 H, Calcium 8.9, Total Bilirubin 0.4, AST 41 H, ALT 30, Alkaline Phosphatase 122 H, C-Reactive Protein 7.3 H, Total Protein 7.5, Albumin 3.3 L, Globulin 4.2 H, Albumin/Globulin Ratio 0.8 L 08/26/18 13:53: Vancomycin Trough 12.5 Medical History: Reports:: Anxiety, Asthma, Depression, Hypertension Denies:: Cancer, Diabetes Mellitus Type 1, Diabetes Mellitus Type 2, MRSA, Seizures Assessment and Plan
[2018-08-26 15:43] LABS: Erythrocyte Sedimentation Rate 84 mm/hr (0-30)
[2018-08-26 15:50] VITALS: BP 96/60; PULSE 74; RESP 16
[2018-08-26 16:20] VITALS: BP 120/76; PULSE 72; RESP 16
[2018-08-26 16:50] VITALS: BP 111/55; PULSE 72; RESP 18
[2018-08-26 17:13] VITALS: BP 125/73; PULSE 68; RESP 18
== END 2018-08-26 17:15 | disposition home or self-care (01) ==
LOC: INF 13:38
PROVIDERS: Visit Provider Podiatrist
DX: Z98.890 Other specified postprocedural states (principal); N17.9 Acute kidney failure, unspecified; N18.9 Chronic kidney disease, unspecified; M86.162 Other acute osteomyelitis, left tibia and fibula
CPT/HCPCS: 80053; 80202; 81001; 85025; 85651; 86140; 96365; J3370

== ENCOUNTER → 2018-08-31 11:23 | Outpatient (CLI) | payer MEDICARE, MEDICAID, SELFPAY ==
--- NOTE | 2018-08-31 11:27 | XR_ITS ---
XR foot wt bearing LT 3V HISTORY: Follow-up ankle arthrodesis ITS.REASON: postop ORDERING PHYSICIAN: Jelena Graham DPM PATIENT AGE: 58 years COMPARISON: None FINDINGS: Posterior splint has been removed. Status post ankle joint fusion with an anterior bone plate of the distal tibia and talus. Diffuse mottled density noted involving the foot and may be due to disuse osteoporosis. There is a faint lucency surrounding the screw which traverses the distal fibula and tibia. Questionable clinical significance and may be seen with loosening or infection. IMPRESSION: 1. Good alignment status post arthrodesis of the ankle. 2. 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 3. Zone of lucency surrounding the transverse screw within the distal tibia and fibula nonspecific but may be seen with loosening or infection
--- NOTE | 2018-08-31 11:27 | XR_ITS ---
XR ankle wt bearing LT min 3V HISTORY: ITS.REASON: postop ORDERING PHYSICIAN: Jelena Graham DPM PATIENT AGE: 58 years Comparison: None FINDINGS: Anterior bone plate remains in place fixating the distal tibia with the talus along with an anterior screw within the distal tibia into the neck of the talus and a lateral screw from the distal fibula to the tibia. Multiple lucencies once again noted from the old fixator device. There is good alignment. There is diffuse mottled attenuation of the bony structures which may be related to disuse osteoporosis. Scattered soft tissue calcification once again noted. IMPRESSION: Good alignment status post arthrodesis of the ankle
== END ==
PROVIDERS: PCP Nurse Practitioner; Visit Provider Podiatrist
DX: Z98.890 Other specified postprocedural states (principal); M79.672 Pain in left foot
CPT/HCPCS: 73610; 73630

== ENCOUNTER 2018-09-03 11:15 | Outpatient (CLI) | payer MEDICARE, MEDICAID, SELFPAY ==
[2018-09-03 11:19] VITALS: BMI 35.4
[2018-09-03 11:39] LABS: Creatinine Clearance Estimated 67 mL/min (50-200); Creatinine,Serum 1.32 mg/dL (0.55-1.02); Estimated Glomerular Filt Rate 41 ml/min (>60); GFR (African American) 50 ML/MIN (>60)
--- NOTE | 2018-09-03 12:08 | P.CONPHA_ITS ---
- Pharmacy Consult Date: 09/03/18 Time: 12:05 Referring provider: DR. KENNEY Reason for Consult:: VANCOMYCIN DOSING Allergies and ADEs:: Allergies Allergy/AdvReac Type Severity Reaction Status Date / Time methadone [METHADONE] Allergy Severe S-DIFF. Verified 08/26/18 11:54 BREATHING morphine [MORPHINE] Allergy Intermediate I-RASH Verified 08/26/18 11:54 amitriptyline [From ELAVIL] Allergy Mild Verified 08/26/18 11:54 Home Medications:: Home Medications Medication Instructions Recorded Confirmed Type Duloxetine HCl 60 mg PO DAILY 01/28/18 08/26/18 History Quetiapine Fumarate 100 mg PO DAILY 01/28/18 08/26/18 History aspirin 81 mg tablet,delayed 81 mg PO DAILY 01/29/18 08/26/18 History release budesonide-formoterol HFA 160 2 puff INHALATION BID 30 Days #10 01/29/1808/07 History mcg-4.5 mcg/actuation aerosol inhaler Cetirizine HCl [Zyrtec] 10 mg PO DAILY 04/21/18 08/26/18 History Metoprolol Succinate 50 mg PO DAILY 04/21/18 08/26/18 History Cholecalciferol (Vitamin D3) 50,000 unit PO WEEKLY 06/17/18 08/26/18 History [Vitamin D3 50,000 unit Cap] Gabapentin [Neurontin 600mg 600 mg PO TID #90 tab 07/13/18 08/26/18 Rx tablet] losartan 100 100 mg PO DAILY 30 Days #30 tab 07/28/18 08/26/18 History mg-hydrochlorothiazide 25 mg tablet ondansetron HCl 4 mg tablet 4 mg PO Q6H PRN #30 tab 07/28/18 08/26/18 Rx temazepam 30 mg capsule 30 mg PO DAILY 30 Days #30 cap 07/28/18 08/26/18 History tramadol 50 mg tablet 50 mg PO TID 15 Days #60 tab 07/28/18 08/26/18 History Amlodipine Besylate [Norvasc 10mg 20 mg PO DAILY 08/03/18 08/26/18 History tablet] Oxycodone HCl/Acetaminophen 5 mg PO Q4-6H PRN 08/03/18 08/26/18 History [Oxycodone W/Apap 325mg Tablet] Albuterol Sulfate [Albuterol 0.63 mg IH TID 08/18/18 08/26/18 History Sulfate 0.63mg/3ml Neb] Tizanidine HCl 4 mg PO HS 08/18/18 08/26/18 History Height: 1.6 m Weight: 90.718 kg Laboratory Results:: Laboratory Results - last 24 hr 09/03/18 11:25: Creatinine 1.32 H, Estimated Creat Clear 67, Estimated GFR 41 L, Est GFR ( Amer) 50 L Medical History: Reports:: Anxiety, Asthma, Depression, Hypertension Denies:: Cancer, Diabetes Mellitus Type 1, Diabetes Mellitus Type 2, MRSA, Seizures Assessment and Plan - Assessment and plan all Dx Assessment and Plan for all problems:: BASED ON PATIENT FACTORS, RECOMMEND RESTARTING VANCOMYCIN AT 1,500MG IV EVERY 24 HOURS. WILL OBTAIN TROUGH LEVEL AND BMP PRIOR TO DOSE ON 08/06/18 AND WILL ADJUST DOSE ACCORDINGLY AT THAT POINT. -ELIZA MARTELL, JOEYD
[2018-09-03 12:20] VITALS: BP 159/79; PULSE 53; RESP 18; TEMP 36.3; O2SAT 97
[2018-09-03 12:50] VITALS: BP 156/87; PULSE 67; RESP 16
[2018-09-03 13:20] VITALS: BP 137/74; PULSE 67; RESP 16
[2018-09-03 13:50] VITALS: BP 134/77; PULSE 64; RESP 18
[2018-09-03 14:15] VITALS: BP 140/71; PULSE 68; RESP 18; O2SAT 96
== END 2018-09-03 14:25 | disposition home or self-care (01) ==
LOC: INF 11:17
PROVIDERS: Visit Provider Podiatrist
DX: Z98.890 Other specified postprocedural states (principal); M86.162 Other acute osteomyelitis, left tibia and fibula; Z72.0 Tobacco use
CPT/HCPCS: 82565; 96365; 96366; J3370

== ENCOUNTER 2018-09-04 10:21 | Outpatient (CLI) | payer MEDICARE, MEDICAID, SELFPAY ==
[2018-09-04 10:38] VITALS: BP 120/55; PULSE 55; RESP 17; TEMP 36.6; O2SAT 94; BMI 35.0
--- NOTE | 2018-09-04 13:46 | PC.NURSE ---
Vanc infused @75 mls/hr per pharmacy for first half hour, no issues reported from patient so vanc increased to 100 mls/hr (okay'd w/pharmacy). Pt tolerated w/o incident.
== END 2018-09-04 13:30 | disposition home or self-care (01) ==
LOC: INF 10:22
PROVIDERS: PCP Family Medicine; Visit Provider Podiatrist
DX: M86.162 Other acute osteomyelitis, left tibia and fibula (principal); Z98.890 Other specified postprocedural states
CPT/HCPCS: 96365; 96366; G0463; J3370

== ENCOUNTER 2018-09-06 11:07 | Outpatient (CLI) | payer MEDICARE, MEDICAID, SELFPAY ==
[2018-09-06 11:20] VITALS: BP 173/84; PULSE 62; RESP 18; TEMP 36.6; O2SAT 96
[2018-09-06 11:50] VITALS: BP 162/79; PULSE 64; RESP 18; O2SAT 97
[2018-09-06 12:10] VITALS: BP 148/73; PULSE 68; RESP 18; O2SAT 97
--- NOTE | 2018-09-06 13:51 | SW/DCPLANNER ---
Addendum entered by Izabela Gee 09/28/18 13:54: I have set this patient up with [facility]. Patient and MD office is aware and home health will start this week. Original Note: Received phone call from this patient this morning regarding home health services rather than coming to [facility] daily for infusions. I have spoke with this patient within the past month regarding home health at patients request. Patient at that time chose to stay at [facility] outpatient rather than home health. This morning I spok e with patient again regarding home health at her request. I spoke with Dr Graham and order was completed. I have faxed patient information to [facility] and Chloe has stated that patients OOP expense would be about $8/week. I have relayed this message to this patient and patient has stated that she is undecided at this time stating her daughter does not feel comfortable. I have explained to patient that a home health nurse would be present the first couple of times to teach infusion process. Patient stated that she does have an appointment with Dr Graham tomorrow morning. The plan as of now is to receive infusion tomorrow and attend appointment with Dr Graham. I will visit this patient tomorrow morning while present in the specialty clinic to see Dr Graham to decide between home health and outpatient infusions. I will hold all orders at this time till tomorrow when decision is made.
== END 2018-09-06 12:15 | disposition home or self-care (01) ==
LOC: INF 11:07
PROVIDERS: Visit Provider Podiatrist
DX: Z98.890 Other specified postprocedural states (principal); M86.162 Other acute osteomyelitis, left tibia and fibula; Z72.0 Tobacco use
CPT/HCPCS: 96365; J0878

== ENCOUNTER 2018-09-07 12:34 | Outpatient (CLI) | payer MEDICARE, MEDICAID, SELFPAY ==
[2018-09-07 12:50] VITALS: BP 179/79; PULSE 58; RESP 18; TEMP 36.7; O2SAT 97
[2018-09-07 13:20] VITALS: BP 163/77; PULSE 59; RESP 18; O2SAT 97
[2018-09-07 13:48] VITALS: BP 166/79; PULSE 60; RESP 18; O2SAT 97
== END 2018-09-07 14:00 | disposition home or self-care (01) ==
LOC: INF 12:34
PROVIDERS: Visit Provider Podiatrist
DX: Z98.890 Other specified postprocedural states (principal); M86.162 Other acute osteomyelitis, left tibia and fibula; Z72.0 Tobacco use
CPT/HCPCS: 96365; J0878

== ENCOUNTER 2018-09-08 11:13 | Outpatient (CLI) | payer MEDICARE, MEDICAID, SELFPAY ==
[2018-09-08 11:14] VITALS: BMI 36.3
[2018-09-08 11:44] LABS: Microscopic, Urine URINE MICROSCOPIC (MICROSCOPIC)
[2018-09-08 11:45] LABS: Basophils % 0.3 % (0.1-2.0); Eosinophils # 0.2 K/mm3 (0.0-0.4); Eosinophils % 2.6 % (0.1-12.0); Hematocrit 28.1 % (37.0-47.0); Hemoglobin 9.2 g/dL (12.2-16.2); Lymphocytes # 1.6 K/mm3 (0.7-4.5); Lymphocytes % 21.4 % (10-50); Mean Corpuscular HGB Conc 32.7 g/dL (31.8-35.4); Mean Corpuscular Hemoglobin 26.8 pg (27.0-31.2); Mean Corpuscular Volume 82.2 fl (81-99); Mean Platelet Volume 7.1 fl (7.4-10.4); Monocytes # 0.4 K/mm3 (0.1-1.0); Monocytes % 5.4 % (1.7-9.3); Neutrophils # 5.1 K/mm3 (1.8-7.8); Neutrophils % 70.2 % (37.0-80.0); Platelet Count 351 K/mm3 (142-424); Red Blood Count 3.42 M/mm3 (4.20-5.40); Red Cell Distribution Width 14.8 % (11.5-17.5); White Blood Count 7.2 K/mm3 (4.8-10.8)
[2018-09-08 11:46] LABS: Appearance,Urine SL CLOUDY (Clear); Bilirubin,Urine Negative (Negative); Blood, Urine Negative (Negative); Color,Urine YELLOW (Yellow); Glucose,Urine (UA) Negative (Negative); Ketones,Urine Negative (Negative); Leukocyte Esterase,Urine Negative (Negative); Nitrate,Urine Negative (Negative); Protein,Urine Negative (Negative); Urobilinogen,Urine 0.2 EU/dl (0.2)
[2018-09-08 11:47] VITALS: BP 139/77; PULSE 50; RESP 18; TEMP 36.6; O2SAT 96
[2018-09-08 11:58] LABS: Alanine Aminotransferase 23 U/L (12-78); Albumin Level 3.1 gm/dL (3.4-5.0); Albumin/Globulin Ratio 0.8 (1.1-1.8); Alkaline Phosphatase 142 U/L (46-116); Anion Gap 13.2 mEq/L (5-15); Aspartate Amino Transferase 14 U/L (15-37); Bilirubin,Total 0.4 mg/dL (0.2-1.0); Blood Urea Nitrogen 13 mg/dL (7-18); C-Reactive Protein 6.1 mg/L (0.0-0.9); Calcium 8.8 mg/dL (8.5-10.1); Carbon Dioxide 27 mmol/L (21.0-32.0); Chloride 103 mmol/L (98-107); Creatinine Clearance Estimated 69 mL/min (50-200); Creatinine,Serum 1.32 mg/dL (0.55-1.02); Estimated Glomerular Filt Rate 41 ml/min (>60); GFR (African American) 50 ML/MIN (>60); Globulin 3.9 gm/dl (1.3-3.2); Glucose 106 mg/dL (74-106); Potassium 3.2 mmoL/L (3.5-5.1); Sodium 140 mmol/L (136-145)
[2018-09-08 12:02] LABS: Bacteria,Urine 1+ /lpf; Squamous Epithelial Cell,Urine 20-50 #/hpf (0-5)
[2018-09-08 12:17] VITALS: BP 121/76; PULSE 62; RESP 18; O2SAT 97
[2018-09-08 12:45] VITALS: BP 109/52; PULSE 70; RESP 18; O2SAT 97
[2018-09-08 12:54] LABS: Erythrocyte Sedimentation Rate 66 mm/hr (0-30)
== END 2018-09-08 12:50 | disposition home or self-care (01) ==
LOC: INF 11:13
PROVIDERS: Visit Provider Podiatrist
DX: M86.162 Other acute osteomyelitis, left tibia and fibula (principal)
CPT/HCPCS: 80053; 81001; 85025; 85651; 86140; 96365; J0878

== ENCOUNTER → 2018-09-13 10:18 | Outpatient (CLI) | payer MEDICARE, MEDICAID, SELFPAY ==
--- NOTE | 2018-09-13 10:29 | MR_ITS ---
MR lower leg LT wo/w con CLINICAL INDICATION: Left leg pain, history of osteomyelitis of the left foot and ankle. Prior ORIF of the left ankle ITS.REASON: pain, osteomyelitis ORDERING PHYSICIAN: Jelena Graham DPM PATIENT AGE: 58 years Comparison: None TECHNIQUE: Multiplanar multiecho sequences are performed without and with gadolinium enhancement.. FINDINGS: Study is limited technically due to motion artifact and metallic artifact in the left distal leg. The upper leg there is a transverse area of increased T2 signal within the mid aspect of the tibia anchored be due to a prior external fixator. Please correlate clinically. There is mild edema within the upper leg. No convincing evidence of osteomyelitis in the mid and upper leg. Extensive artifact obscures evaluation of the lower tibia. There is extensive soft tissue swelling and edema in the lower leg and ankle. The bony structures are not well evaluated due to the motion and metallic artifact. There may be some enhancement of the distal tibia. This is nonspecific and is at best questionable. IMPRESSION: 1. Extensive artifact from motion and prosthesis in the lower tibia and ankle prohibits adequate bony evaluation. There is diffuse soft tissue swelling about the ankle. 2. Postsurgical changes of the ankle with fusion as described on 08/31/2018. There may be some enhancement of the distal tibia. This is at best questionable.
--- NOTE | 2018-09-13 12:07 | HMH.ITSHM ---
Current Home Medications as stated by this patient Rekha Greco or key account representative. []GABAPENTIN METAPROLOL ASPIRIN ZOFRAN INHALER SYMBICORT CYMBALTA
== END ==
PROVIDERS: PCP Nurse Practitioner Family; Visit Provider Podiatrist
DX: M86.162 Other acute osteomyelitis, left tibia and fibula (principal)
CPT/HCPCS: 73720; A9576

== ENCOUNTER 2018-09-13 12:44 | Outpatient (CLI) | payer MEDICARE, MEDICAID, SELFPAY ==
[2018-09-13 13:11] VITALS: BP 127/94; PULSE 67; RESP 20; TEMP 36.5; O2SAT 97
[2018-09-13 13:50] VITALS: BP 120/85; PULSE 69; RESP 20; O2SAT 98
== END 2018-09-13 13:55 | disposition home or self-care (01) ==
LOC: INF 12:44
PROVIDERS: Visit Provider Podiatrist
DX: M86.162 Other acute osteomyelitis, left tibia and fibula (principal)
CPT/HCPCS: 73720; 96365; A9576; J0878

== ENCOUNTER → 2018-09-24 10:58 | Outpatient (CLI) | payer MEDICARE, MEDICAID, SELFPAY ==
--- NOTE | 2018-09-24 11:04 | XR_ITS ---
XR tibia fibula LT 2V, XR ankle wt bearing LT min 3V Ordering Physician: Jelena Graham DPM Patient Age: 58 years: Female HISTORY: ITS.REASON: postop views left ankle arthrodesis follow-up postop left ankle and lower leg pain left leg TECHNIQUE: LEFT ANKLE 3 VIEW LEFT TIB-FIB 2 view COMPARISON : 08/31/2018 left foot and ankle LEFT ANKLE 3 VIEW &LEFT TIB-FIB 2 view These studies reviewed together LEFT ANKLE : Anterior bone plate remains in place fixating device fusing the distal tibia with the talus. 3 screws secure this plate at the distal tibia and 2 screws secure to the distal talus There is also larger screw seen entering at the anterior medial aspect of the distal tibial metaphysis passing downward into the dome of talus. Contributing to the arthrodesis of the ankle joint . Multiplelucencies once again noted reflecting tracks from the old fixator device. Are seen at the distal fibula and to lesser degree tibia. There is stable position and alignment of osseous and fixation elements. Progressive bone formation is evident particularly about the posterior aspect of the distal tibia and fibula. Also some progressive likely soft tissue dystrophic calcification posterior to the fibula and medial to the distal tibial shaft. Favor soft tissue calcification & myositis ossificans type calcification . There is still prominent swelling about the lower leg particularly the medial aspect of the ankle and lower leg. Mottled appearance is seen at the tarsals likely reflecting disuse osteopenia. LEFT TIBIA/FIBULA: . Millimeter from the distal tibia and fibula discussed above on also note that at the junction of the middle and proximal third of the tibia there is a lucent area which reflects the tract from old fixation elements. proximal to this the 2 views knee are included and appear satisfactory. ---------IMPRESSION: 1. LEFT ANKLE: Stable post arthrodesis findings at left ankle. Stable position & alignment of osseous and fixation elements here Progressive bone formation posterior to the tibia/progressive osseous fusion at ankle joint. Progressive soft tissue calcification/ossification posterior to the fibula, as well as medial to the distal tibia also noted. Suspect reflecting myositis ossificans or dystrophic calcification. 2. Diffuse soft tissue swelling persists about lower leg and ankle, degree medial aspect. 3. LEFT TIBIA/FIBULA otherwise. Post surgical changes distal tib-fib as above Tracks from previous fixation elements at the distal tib-fib.; Less evident posterior fixation features proximal tibia. Otherwise the mid & proximal tibia & fibula unremarkable. Limited views of left knee unremarkable .
== END ==
PROVIDERS: PCP Family Medicine; Visit Provider Podiatrist
DX: Z98.890 Other specified postprocedural states (principal); E11.9 Type 2 diabetes mellitus without complications
CPT/HCPCS: 36415; 73590; 73610; 83036

== ENCOUNTER 2018-09-28 13:27 | Outpatient (CLI) | payer MEDICARE, MEDICAID, SELFPAY | END 2018-09-28 13:45 | disposition home or self-care (01) | LOC: INF 13:27 | PROVIDERS: Visit Provider Podiatrist | DX: Z45.2 Encounter for adjustment and management of vascular access device (principal) | CPT/HCPCS: G0463 ==

== ENCOUNTER → 2018-11-03 11:43 | Outpatient (CLI) | payer MEDICARE, MEDICAID, SELFPAY ==
--- NOTE | 2018-11-03 11:47 | XR_ITS ---
XR foot wt bearing LT 3V HISTORY: ITS.REASON: pain, postop ORDERING PHYSICIAN: Jelena Graham DPM PATIENT AGE: 58 years COMPARISON: None FINDINGS: Status post arthrodesis of the ankle. There is mild pes planus. There is a small calcaneal spur. No acute fracture or dislocation evident of the foot. IMPRESSION: Status post arthrodesis of the ankle, negative foot
--- NOTE | 2018-11-03 11:47 | XR_ITS ---
XR ankle wt bearing LT min 3V HISTORY: Left foot and ankle pain follow-up surgery ITS.REASON: pain, post op ORDERING PHYSICIAN: Jelena Graham DPM PATIENT AGE: 58 years Comparison: 09/24/2018 FINDINGS: No change status post ankle arthrodesis with an L shaped bone plate at the distal tibia and talus with additional screws directed from the lateral aspect of the distal fibula into the tibia and the anterior medial aspect of the tibia into the talus. Multiple lucencies noted in the proximal and mid tibia and fibula prior ORIF. Heterotopic ossification noted about the ankle. There is a thin zone of lucency about the screw which extends from the lateral fibula into the distal tibia which is not significantly changed. IMPRESSION: No change status post ankle arthrodesis an old ORIF of the tib-fib
--- NOTE | 2018-11-03 11:47 | XR_ITS ---
XR tibia fibula LT 2V CLINICAL INDICATION: ITS.REASON: pain ORDERING PHYSICIAN: Jelena Graham DPM PATIENT AGE: 58 years Comparison: 09/24/2018 FINDINGS: No change status post ankle arthrodesis with an L shaped bone plate at the distal tibia and talus with additional screws directed from the lateral aspect of the distal fibula into the tibia and the anterior medial aspect of the tibia into the talus. Multiple lucencies noted in the proximal and mid tibia and fibula prior ORIF. Heterotopic ossification noted about the ankle IMPRESSION: No change status post ankle arthrodesis an old ORIF of the tib-fib
== END ==
PROVIDERS: PCP Nurse Practitioner; Visit Provider Podiatrist
DX: Z98.890 Other specified postprocedural states (principal)
CPT/HCPCS: 73590; 73610; 73630

== ENCOUNTER → 2018-12-10 13:20 | Outpatient (CLI) | payer MEDICARE, MEDICAID, SELFPAY ==
--- NOTE | 2018-12-10 13:21 | CT_ITS ---
CT ankle LT wo con INDICATION: Pain, prior ORIF/arthrodesis, left ankle pain and swelling, evaluate for osteomyelitis at the proximal medial and, by what or nonunion ITS.REASON: Access for healing of fusion: rule out non-union. ORDERING PHYSICIAN: Jelena Graham DPM PATIENT AGE: 58 years COMPARISON: 09/24/2018, 11/03/2018 TECHNIQUE: Contrast Used: Oral Contrast: Axial images were obtained. Sagittal and coronal reformatted images are reviewed as well. All CT scans at the facility use one or more dose reduction, viz: automated exposure control, ma/kV adjustment per patient size (including targeted exams where dose is matched to indication, i.e. head), or iterative reconstruction technique. FINDINGS: There has been prior fusion of the ankle joint. There is an anterior bone plate present along the distal tibia anteriorly. This is L shaped with screws in the distal tibia and within the talus. This plate does appear intact. No abnormal lucencies are evident around the screws. There is bony fusion of the ankle joint. Prominent callus formation is present along the distal tibia medially. There is an additional lag screw within the medial aspect of the distal tibia into the talus with no abnormal lucency around the screw. No evidence of loosening or infection. The tip of the screws just proximal to the posterior subtalar joint. Bony bridging is present at the distal aspect of the tibia and fibula. There is a transverse screw through this region from the lateral aspect of the fibula into the tibia with no abnormal lucency at the tibial region. There is minimal lucency around the screw at the fibular area however, this is well-circumscribed. There is diffuse areas of decreased bone density consistent with osteopenia. There is mild subcutaneous soft tissue swelling about the ankle. There is focal increased soft tissue density in the subcutaneous region of both medial and distal aspect of the ankle and may be related to chronic changes from previous areas of surgery. There is some heterotopic ossification in the lower leg and ankle. No obvious abscess. Abscess evaluation is limited without IV contrast. IMPRESSION: 1. Status post ankle joint fusion with bony fusion at the ankle joint as described above. 2. No evidence of orthopedic hardware malfunction, loosening, or infection around the bone plate or screws. 3. Scattered areas of soft tissue swelling which are nonspecific and may be postsurgical.
--- NOTE | 2018-12-10 14:05 | MM_ITS ---
MM Dig mamm DX unilat RT CAD, US breast RT complete INDICATION: Follow-up abnormal mammogram, nodule ORDERING PHYSICIAN: Jelena Graham DPM PATIENT AGE: 58 years COMPARISON: 04/16/2018, 03/25/2018 TECHNIQUE: Problem-solving views performed of the right breast along with right breast ultrasound FINDINGS: There is average fibroglandular tissue. Nodularity once again noted involving the medial aspect of the right breast does not appear significantly changed fairly well-circumscribed and may be due to combination of small overlying cyst and vessels. No malignant appearing mass or malignant appearing microcalcification is evident. Right breast ultrasound: There is a 4 x 3 mm cyst at 3:00 and an additional 2 mm cyst at 3:00 IMPRESSION: No change. Benign findings. No evidence of malignancy. Suggest continued screening mammogram March 2019 BI-RADS Category: 2 Benign Finding(s) Recommend resuming bilateral screening mammogram March 2019 (A letter has been sent to the patient regarding results of the study.)
== END ==
PROVIDERS: PCP Nurse Practitioner; Visit Provider Podiatrist
DX: Z98.1 Arthrodesis status (principal); R92.8 Other abnormal and inconclusive findings on diagnostic imaging of breast
CPT/HCPCS: 73700; 76641; 77065

== ENCOUNTER → 2019-08-01 15:28 | Outpatient (CLI) | payer MEDICARE, MEDICAID, SELFPAY ==
--- NOTE | 2019-08-01 | XR_ITS ---
PROCEDURE: XR LUMBAR SPINE MIN 4V CLINICAL INDICATION: DORSALGIA Numbness from waist down COMPARISON: LS5 LUMBAR SPINE 5 VIEWS from 10/06/2016 ABDPELW/O CT ABD PELVIS W/O CONTRAST from 12/24/2016 FINDINGS: There is normal alignment. There is degenerative disc disease from L1-S1 most severe at L3-L4 and L5-S1. Endplate osteophytes are present. Since the previous exam there has been mild wedging developed at T12 with loss of height anteriorly of approximately 30-40 percent. Prominent osteophyte is present on the left at L3-L4 endplate. The SI joints have an unremarkable appearance. IMPRESSION: 1. Multilevel lumbar spondylosis/degenerative disc disease which has progressed. 2. Wedge compression changes of T12 which have developed since the previous exam but do not appear acute. Please correlate with patient's area of pain and tenderness. MRI may confirm if clinically warranted. Dictated by: Issa Way MD 08/01/2019 17:51 Electronically signed by Issa Way MD in [place] 08/01/2019 17:51
== END ==
PROVIDERS: PCP Family Medicine; Visit Provider Nurse Practitioner Family
DX: M54.5 Low back pain (principal)
CPT/HCPCS: 72110

== ENCOUNTER → 2019-08-18 14:35 | Outpatient (CLI) | payer MEDICARE, MEDICAID, SELFPAY ==
--- NOTE | 2019-08-18 14:37 | MR_ITS ---
PROCEDURE: MR THORACIC SPINE WO CON CLINICAL INDICATION: CLOSED WEDGE COMPRESSION FX OF 12TH THORACIC VERTEBRAE Cough cough COMPARISON: ANKLTWO CT ankle LT wo con from 12/10/2018 XR LUMBAR SPINE MIN 4V from 08/01/2019 TECHNIQUE: Routine multiplanar multi echo sequences are performed without gadolinium enhancement. FINDINGS: There is normal alignment. There is homogeneous increased T1 and increased T2 signal involving the T8 vertebral body. The signal somewhat less on the STIR images suggesting lipoma or lipid rich hemangioma. There is degenerative disc disease from T4 to T12 with decrease in the disc space and disc desiccation. T7-T8: Small central disc protrusion versus a prominent posterior longitudinal ligament noted at T7-T8 abutting the cord anteriorly. T8-T9: There is a minimal right paracentral disc protrusion without impingement. T9-T10: Minimal bulging disc. T10-T11: Degenerate disc disease with bulging disc and small right paracentral disc protrusion causing mild right lateral recess narrowing without impingement upon the cord T11-T12: Mild concentric bulging disc. There is [id number] wedging involving the T12 vertebral body with loss of height anteriorly of approximately 40 percent. A Schmorl's node is present along the superior endplate. This only shows mild increased signal on the STIR images in does not appear to represent an acute fracture. There is very minimal retropulsion of the posterior superior aspect of T12 by approximately 4 mm without impingement IMPRESSION: 1. T7-T8: Small central disc protrusion versus a prominent posterior longitudinal ligament noted at T7-T8 abutting the cord anteriorly. 2. T8-T9: There is a minimal right paracentral disc protrusion without impingement. 3. T10-T11: Degenerate disc disease with bulging disc and small right paracentral disc protrusion causing mild right lateral recess narrowing without impingement upon the cord 4. T11-T12: Mild concentric bulging disc. There is uxma-[id number] wedging involving the T12 vertebral body with loss of height anteriorly of approximately 40 percent. A Schmorl's node is present along the superior endplate. This only shows mild increased signal on the STIR images in does not appear to represent an acute fracture. There is very minimal retropulsion of the posterior superior aspect of T12 by approximately 4 mm without impingement Dictated by: Issa Way MD 08/19/2019 12:00 Electronically signed by Issa Way MD in [place] 08/19/2019 12:00
== END ==
PROVIDERS: PCP Family Medicine; Visit Provider Nurse Practitioner
DX: S22.080A Wedge compression fracture of T11-T12 vertebra, initial encounter for closed fracture (principal)
CPT/HCPCS: 72146

== ENCOUNTER → 2019-09-05 13:29 | Outpatient (CLI) | payer MEDICARE, MEDICAID, SELFPAY ==
--- NOTE | 2019-09-05 13:32 | MR_ITS ---
PROCEDURE: MR LUMBAR SPINE WO CON CLINICAL INDICATION: LOW BACK PAIN subacute to chronic fracture T12 COMPARISON: MR THORACIC SPINE WO CON from 08/18/2019 TECHNIQUE: Standard multiplanar multiecho sequences are performed without contrast. 3-D MIP and myelographic images are also rendered and reviewed FINDINGS: Routine multiplanar multisequence exam was performed. Compression deformity of T12 described previously is again present with associated degenerative Schmorl's node. There is no malalignment. There is slight anterior wedging of L1 with loss of less than 1/4 of the vertebral body height. Remaining vertebrae are of normal height. There is abnormal bone marrow signal in the posterior elements of T11 and T12. This is greatest to the right of midline at T12 appearing to involve the facet joint. This is hyperintense on T2 and hypointense on T1. There is no obvious bony fracture The findings may represent reactive edema associated with facet arthropathy. Osseous contusions or bone marrow edema associated with occult fractures or less likely infectious or neoplastic process would be the other possibilities. CT may be useful to evaluate fine cortical bone detail. Multilevel degenerative disc disease as described on thoracic spine exam is noted. There is desiccation of all lumbar intervertebral discs. Discogenic end plate disease is noted at L5 and S1. At L1-2 there is broad-based disc bulge greatest to the right of midline with extradural mass effect on the thecal sac without central canal or foraminal stenosis. At L2-3 there is broad-based disc bulge with moderate sized left paracentral disc protrusion consistent with herniation. There is central spinal canal stenosis and there is mild bilateral foraminal stenosis. There is some inferior migration of herniated disc which is also seen to extend across the midline to the right of midline to the paracentral region. At L3-4 there is broad-based disc bulge with right paracentral disc herniation and bilateral hypertrophic facet disease with central spinal canal stenosis and bilateral foraminal stenosis left greater than right. At L4-5 there is broad-based disc bulge with hypertrophic facet disease and ligamentum flavum hypertrophy with central spinal canal stenosis and bilateral foraminal stenosis right greater than left. Impingement of right L4 nerve root sleeve should be considered clinically. At L5-S1 there is hypertrophic facet disease with broad-based disc bulge with bilateral foraminal stenosis right greater than left. Impingement of bilateral L5 nerve root sleeves particularly the right one should be considered clinically. No central canal stenosis is apparent. IMPRESSION: Multilevel degenerative disc disease as described with central canal and foraminal stenoses. Multilevel degenerative disc disease has been described in the lower thoracic spine with subacute to chronic wedge deformity of T12. Note is made of bone marrow signal abnormalities within the posterior elements of T11 and T12. Differential possibilities are described. Dictated by: Nigel Plascencia 09/05/2019 15:25 Electronically signed by Nigel Plascencia in [place] 09/05/2019 15:25
== END ==
PROVIDERS: PCP Family Medicine; Visit Provider Orthopaedic Surgery Adult Reconstructive Orthopaedic Surgery
DX: M54.5 Low back pain (principal)
CPT/HCPCS: 72148; 76376

== ENCOUNTER → 2019-09-16 10:13 | Outpatient (CLI) | payer MEDICARE, MEDICAID, SELFPAY ==
--- NOTE | 2019-09-16 10:37 | MR_ITS ---
PROCEDURE: MR LUMBAR SPINE WO/W CON CLINICAL INDICATION: INTERVERTEBRAL DISC DEGENERATION Low back pain, right leg pain COMPARISON: MR LUMBAR SPINE WO CON from 09/05/2019 TECHNIQUE: Standard multiplanar multiecho sequences are performed without contrast. 3-D MIP and myelographic images are also rendered and reviewed FINDINGS: There is normal alignment. The spinal cord ends at the L1 level. T11-T12: Degenerative disc disease. There is mild wedging involving the T12 vertebral body. This is not significantly changed. There is increased T2 signal involving the posterior elements T11 and T12 bilaterally slightly more intense on the right compared to the left side. This did have a similar appearance on the previous exam and is overall not significantly changed.. This involves the pedicles of T11 and T12 along with the superior facet of T12. No obvious soft tissue component. L1-L2: Degenerate disc disease with bulging disc not significantly changed. L2-L3: Degenerate disc disease with bulging disc along with small central disc herniation having a somewhat lobular contour slightly more prominent on the left with inferior extrusion of the disc. This is not significantly changed and results in mild bilateral lateral recess narrowing along with borderline narrowing of the canal not significantly changed. L3-L4: Degenerate disc disease with bulging disc and small left paracentral disc protrusion. The bulging disc is eccentric toward the left. There is moderate left lateral recess narrowing. Facet and ligamentum hypertrophy is also present at this area with mild right foraminal narrowing and moderate left foraminal narrowing.. This is not significantly changed. There is borderline narrowing of the canal at this area L4-5: Degenerate disc disease with bulging disc with facet and ligamentum hypertrophy with severe right and moderate left foraminal narrowing. L5-S1: Degenerate disc disease with facet arthritic changes with moderate to severe right and moderate left foraminal narrowing. IMPRESSION: 1. Multilevel lumbar spondylosis with degenerative disc disease with bulging disc and disc protrusions with canal and foraminal narrowing as described above. Please see above for detailed description at each level. 2. No change subacute to chronic wedge compression changes of T12 with abnormal bone marrow signal intensity of the posterior elements of T11 and T12 which could be reactive from trauma or underlying facet arthritic changes. Infection or neoplasm would be included in the differential diagnosis. This is overall not significantly changed. 3. Bulging disc with central disc herniation with inferior extrusion at L2-L3 as described above. 4. Bulging disc with small left paracentral disc protrusion at L3-L4 as described above 5. Please see above for detailed description at each level Dictated by: Issa Way MD 09/20/2019 11:42 Electronically signed by Issa Way MD in [place] 09/20/2019 11:42
[2019-09-16 10:39] LABS: Blood Urea Nitrogen 14 mg/dl (7-17); Estimated Glomerular Filt Rate 74 ml/min (>60); GFR (African American) 89 ML/MIN (>60)
== END ==
PROVIDERS: PCP Family Medicine; Visit Provider Orthopaedic Surgery Adult Reconstructive Orthopaedic Surgery
DX: M51.36 Other intervertebral disc degeneration, lumbar region (principal)
CPT/HCPCS: 36415; 72158; 76376; 82565; 84520; A9576

== ENCOUNTER 2019-11-17 16:01 | Emergency (ER) | payer MEDICARE, MEDICAID, SELFPAY ==
[2019-11-17 16:02] VITALS: BP 102/75; PULSE 75; RESP 20; TEMP 36.8; O2SAT 98; BMI 34.9
--- NOTE | 2019-11-17 16:20 | HMH.EDGENADL ---
ED Disposition Clinical Impression: Lumbar disc disease with radiculopathy Disposition: Home, Self-Care Condition on Discharge: Fair Instructions: DI for Back Pain With Sciatica, DI for Lumbar Radiculopathy Additional Instructions: Percocet as needed for pain. Continue prednisone. Call your primary provider tomorrow for further treatment. Additional instructions for CONTROLLED SUBSTANCES: You have been prescribed a medication that is a controlled substance. Controlled substances include pain medications known as opiates and sedative nerve medications known as benzodiazepines. Tramadol, fioricet, and gabapentin are also controlled substances. Some common opiates include: Codeine (such as Tylenol #3) Hydrocodone (Vicodin, Lortab, Lorcet, Daggett) Oxycodone (Percocet, Percodan, Oxycodone, Oxy IR) Some common benzodiazepines include: Diazepam (Valium) Lorazepam (Ativan) Alprazolam (Xanax) Clonazepam (Klonopin) Oxazepam (Serax) All of these controlled substances are highly addictive and frequently abused. Misuse can and frequently does lead to addiction as well as overdose and . Medication should be stored in a locked cabinet or other secure storage unit. Do not store the medication in a motor vehicle. Short term supplies, 3 days or less, are prescribed because of the highly addictive nature of the medication. Any of the controlled substance medication NOT taken should be disposed of properly and NOT SAVED. The recommended method of disposing of unused medications is: Place the medicines in a sealable plastic bag. If the medicine is a solid, crush it or add water to dissolve it. Add something undesirable (cat litter, coffee grounds, etc.) Dispose of sealed bag in household trash Do not flush or pour unused medicines down a sink or drain. Controlled substances should not be shared, given away or sold. Because of the addictive nature and frequent abuse, these medications are sometimes stolen. These medications should be kept in a safe place where they cannot be stolen. Do not keep them in your car or purse. Lost or stolen prescriptions for controlled substances WILL NOT BE REFILLED in this emergency department, regardless of whether a police report was filed. Prescriptions: Oxycodone HCl/Acetaminophen [Percocet 5/325mg tablet] 1 tab PO Q6HP PRN #10 tablet PRN Reason: Moderate To Severe Pain Transmission Status: Sent to [facility] Referrals: Reji Watts MD [Primary Care Provider] - - Critical Care Critical Care Time: No Attestation: On , the high probability of a clinically significant, sudden or life threatening deterioration of the following system(s) required my full and direct attention, intervention and personal management. The time I documented below is in addition to time spent performing reported procedures but includes the following listed in this critical care notation. Medical Decision Making - William Inquiry Pt receiving controlled substance: Yes William was queried for this patient: Yes Reference #:: [id number] Risks and benefits of using a controlled substance: were discussed with pt by me Comment: 44 rxs. no current opioids. last rxs temazepam/gabapentin Vital Signs: 11/17/19 16:02 Temperature 98.2 F Temperature Source Oral Pulse Rate [Left Radial] 75 Respiratory Rate 20 Blood Pressure [Right Radial Artery] 102/75 L Blood Pressure Mean [Right Radial Artery] 84 Blood Pressure Position [Right Radial Artery] Sitting 02 Sat by Pulse Oximetry 98 Oxygen Delivery Method Room Air Orders (Tests/Meds): ED MEDICATIONS Discontinued Medications Generic Name Dose Route Start Last Admin Trade Name Freq PRN Reason Stop Dose Admin Hydromorphone HCl 2 mg 11/17/19 16:41 Dilaudid 2mg/Ml Syringe IM 11/17/19 16:42 ONCE ONE Medical Decision Narrative: Recent imaging studies: PROCEDURE: MR LUMBAR SPINE WO/W CON CLINICAL INDICATION: IN
[2019-11-17 17:06] VITALS: BP 105/87; PULSE 87; RESP 20; TEMP 36.8; O2SAT 98
== END 2019-11-17 17:08 | disposition home or self-care (01) ==
PROVIDERS: Emergency Provider Emergency Medicine; PCP Family Medicine
DX: M51.16 Intervertebral disc disorders with radiculopathy, lumbar region (principal); G89.29 Other chronic pain; I10 Essential (primary) hypertension; F41.8 Other specified anxiety disorders; M79.7 Fibromyalgia; Z79.899 Other long term (current) drug therapy; F17.210 Nicotine dependence, cigarettes, uncomplicated; Z88.5 Allergy status to narcotic agent
CPT/HCPCS: 96372; 99281; 99282; J2405

== ENCOUNTER 2019-11-21 10:59 | Emergency (ER) | payer MEDICARE, MEDICAID, SELFPAY ==
[2019-11-21 11:00] VITALS: BP 113/76; PULSE 78; RESP 16; TEMP 36.6; O2SAT 98; BMI 34.0
--- NOTE | 2019-11-21 11:27 | HMH.EDGENADL ---
ED Disposition Clinical Impression: Lumbar disc disease with radiculopathy Chronic pain Qualifiers: Chronic pain type: chronic pain syndrome Qualified Code(s): G89.4 - Chronic pain syndrome Disposition: Home, Self-Care Condition on Discharge: Fair Instructions: DI for Back Pain With Sciatica Additional Instructions: See Dr. Watts/ in the office today at 4 PM. Referrals: Yamini Ortiz APRN [Primary Care Provider] - - Critical Care Critical Care Time: No Attestation: On 11/21/19, the high probability of a clinically significant, sudden or life threatening deterioration of the following system(s) required my full and direct attention, intervention and personal management. The time I documented below is in addition to time spent performing reported procedures but includes the following listed in this critical care notation. Medical Decision Making - Medical Records Medical records reviewed: Yes: I reviewed the patient's medical records. - William Inquiry Pt receiving controlled substance: No Vital Signs: 11/21/19 11:00 11/21/19 12:18 Temperature 97.8 F 98 F Temperature Source Oral Oral Pulse Rate 78 Pulse Rate [Left Radial] 78 Respiratory Rate 16 16 Blood Pressure 115/74 Blood Pressure [Right Arm] 113/76 Blood Pressure Mean [Right Arm] 88 Blood Pressure Position [Right Arm] Sitting 02 Sat by Pulse Oximetry 98 Oxygen Delivery Method Room Air Room Air - Physician Consults Physician Consulted: Mac Time: 12:09 Reason -: Pt condition Comment/Response: Discussed case. He requested the patient be discharged and follow-up with him in their office today at 4 PM. Patient is agreeable. General Adult HPI - General Chief complaint: Back Pain/Injury Stated complaint: Right leg pain, no accident Time Seen by Provider: 11/21/19 11:50 Mode of Arrival: Wheelchair Limitations: No Limitations Description of Symptoms (Recalled from ER Triage Doc. by RN): to ed per pvt car with c/o rt side lower back pain radiating down rt leg with numbness tingling leg. pt states she has had 3 MRIs for back pain seen dr wilkerson, cash processing specialist 09/20 given an epidural and states pain has been worse since procedure. pt seen thurs in ED for same c/o. pt denies any bowel or bladder incontinence - History of Present Illness HPI narrative: The patient was seen by me 4 days ago in this emergency department. She has chronic back pain and right leg pain. She has been having an acute exacerbation. She had seen her primary care provider and had been started on steroids. She has had 3 recent MRIs of her thoracic and lumbar spine as well as spine x-rays. She has seen pain management and recently had an epidural injection, but she says she had a bad experience and was not planning on going back. She has seen other pain management physicians prior to that. she has also seen an orthopedist and was referred from the orthopedist to the pain management physician. She had been on prednisone at the time of her last emergency department visit, but says she is now finished. Please see my previous note for details. In the emergency department I gave her an injection for pain and prescribed Percocet and at that time advised her that I would not provide further controlled substances/opioids. Advised her to follow-up with her primary care provider, orthopedist, or pain management physician. She has not yet followed up with any of those physicians. Symptoms persist, she complains of pain from her lower back into her right hip and down her right leg. Denies loss of bowel or bladder control. Denies fever. She complains of nausea, but no vomiting. - Related Data Home Medications Medication Instructions Recorded Confirmed Duloxetine HCl 60 mg PO DAILY 01/28/18 10/13/19 Quetiapine Fumarate 100 mg PO DAILY 01/28/18 10/13/19 budesonide-formoterol HFA 160 2 puff INHALATION BID 30 Days #10 01/29/18 10/13/19 mcg-4.5 mcg/actuation aerosol
--- NOTE | 2019-11-21 11:58 | PC.NURSE ---
calling dr partida office at this time.
--- NOTE | 2019-11-21 12:04 | PC.NURSE ---
Dr Go speaking with Dr Watts
[2019-11-21 12:18] VITALS: BP 115/74; PULSE 78; RESP 16; TEMP 36.6; O2SAT 97
== END 2019-11-21 12:20 | disposition home or self-care (01) ==
PROVIDERS: Emergency Provider Emergency Medicine; PCP Nurse Practitioner
DX: M54.16 Radiculopathy, lumbar region (principal); G89.4 Chronic pain syndrome; I10 Essential (primary) hypertension; F41.8 Other specified anxiety disorders; M79.7 Fibromyalgia; J45.909 Unspecified asthma, uncomplicated; F17.210 Nicotine dependence, cigarettes, uncomplicated; Z79.899 Other long term (current) drug therapy; Z88.5 Allergy status to narcotic agent
CPT/HCPCS: 99281

== ENCOUNTER → 2020-04-27 10:42 | Outpatient (CLI) | payer MEDICARE, MEDICAID, SELFPAY ==
--- NOTE | 2020-04-27 10:48 | XR_ITS ---
PROCEDURE: XR ANKLE WT BEARING LT MIN 3V CLINICAL INDICATION: foot pain COMPARISON: CR ANKCMLT XR ankle LT min 3V from 06/16/2018 CR [id number] XR ankle wt bearing LT min 3V from 07/02/2018 CR ANKCMLT XR ankle LT min 3V from 08/04/2018 CR [id number] XR ankle wt bearing LT min 3V from 08/31/2018 CR XR FOOT WT BEARING LT 3V from 04/27/2020 FINDINGS: There has been prior ankle fusion with an anterior bone plate. There is also been partial fusion of the distal tib fib with a transverse screw at the syndesmotic region. The previously noted multiple screws hose within the distal tibia and fibula are somewhat less apparent. No acute fracture or dislocation. No evidence of prosthesis malfunction. Other are osteoarthritic changes of the left foot with bony hypertrophy/bunion formation at the distal aspect of the 1st metatarsal. There is a small calcaneal spur with minimal calcification along the plantar fascia region posteriorly. Mild osteoarthritic changes are present at the talonavicular joint. IMPRESSION: Postsurgical changes with fusion of the ankle is described above Mild osteoarthritis with bunion formation at the 1st metatarsophalangeal joint Dictated by: Issa Way MD 04/27/2020 17:[address] MD in [place] 04/27/2020 17:24
--- NOTE | 2020-04-27 10:48 | XR_ITS ---
PROCEDURE: XR ANKLE WT BEARING RT MIN 3V CLINICAL INDICATION: foot pain COMPARISON: CT FOOTRTWO CT foot RT wo con from 01/28/2018 CR ANKCMRT XR ankle RT min 3V from 04/14/2018 CR [id number] XR foot wt bearing RT 3V from 05/17/2018 CR ANKCMLT XR ankle LT min 3V from 06/16/2018 CR ANKWBL3 XR ankle wt bearing LT min 3V from 07/02/2018 CR ANKCMLT XR ankle LT min 3V from 08/04/2018 CR XR FOOT WT BEARING RT 3V from 04/27/2020 FINDINGS: There is some cortical lobularity along distal aspect of the tibia laterally at the syndesmotic region. The ankle mortise is preserved. Minimal hypertrophic changes are present at the tip of the fibula and the medial malleolus. There is mild hypertrophy of the distal aspect of the 1st metatarsal. There is a small calcaneal spur and mild hypertrophic changes along the dorsal aspect of the metatarsal tarsal junction. There is some calcification along the 1st intermetatarsal space at the base of the 1st and 2nd metatarsals with some bony hypertrophy at the base of the metatarsals. This could represent area bony injury. There is mild widening of the space at the base of the 1st and 2nd metatarsals. IMPRESSION: Old posttraumatic changes of the foot with associated osteoarthritic changes. There is mild widening at the base of the 1st and 2nd metatarsal with calcification between the base of the 1st and 2nd metatarsal consistent with old injury Dictated by: Issa Way MD 04/27/2020 17:[address] MD in [place] 04/27/2020 17:29
== END ==
PROVIDERS: PCP Nurse Practitioner; Visit Provider Podiatrist
DX: Z98.890 Other specified postprocedural states (principal); M79.672 Pain in left foot; M25.572 Pain in left ankle and joints of left foot; M79.671 Pain in right foot; M25.571 Pain in right ankle and joints of right foot
CPT/HCPCS: 73610; 73630

== ENCOUNTER → 2020-05-29 15:12 | Outpatient (CLI) | payer MEDICARE, MEDICAID, SELFPAY ==
--- NOTE | 2020-05-29 15:15 | MR_ITS ---
PROCEDURE: MR LUMBAR SPINE WO CON CLINICAL INDICATION: LUMBAR DISC HERNIATION BILATERAL LBP AND LEG PAIN, NUMBNESS, AND TINGLING. SYMPTOMS [id number]. NO PRIOR SURGERY. PRIOR MR 09-16-19 COMPARISON: MR MR LUMBAR SPINE WO/W CON from 09/16/2019 TECHNIQUE: Standard multiplanar multiecho sequences are performed without contrast. 3-D MIP and myelographic images are also rendered and reviewed FINDINGS: There is normal alignment. The spinal cord ends at the L2 level. Multilevel lumbar spondylosis is present and described below. T10-T11: There is a small right paracentral disc herniation abutting the anterior aspect of the cord on the right. T11-T12: Degenerative disc disease with mild bulging disc. There is mild wedging of T12 with a Schmorl's node along the superior endplate. These findings are not significantly changed. T12-L1: Unremarkable. L1-L2: Degenerative disc disease with bulging disc. L2-L3: Degenerative disc disease with bulging disc and a small broad-based central disc protrusion causing bilateral lateral recess narrowing slightly greater on the left compared to the right abutting the traversing left L3 nerve root. This disc protrusion may be slightly larger compared to the previous exam. L3-L4: Degenerate disc disease with bulging disc which is eccentric toward the left along with facet and ligamentum hypertrophy with resultant severe left lateral recess narrowing and moderate left-sided foraminal narrowing along with mild right lateral recess and foraminal narrowing. This does not appear significantly changed. There are type 3 endplate changes at this area. L4-5: Degenerative disc disease with bulging disc along with facet and ligamentum hypertrophy with moderate right lateral recess and foraminal narrowing not significantly changed. L5-S1: Degenerative disc disease with bulging disc and endplate hypertrophic change with facet and ligamentum hypertrophy. With severe right moderate left-sided foraminal narrowing not significantly changed.. There are type 2 endplate changes at this level. IMPRESSION: Abnormal MRI of the lumbar spine with multilevel lumbar spondylosis with degenerative disc disease bulging disc with facet ligamentum hypertrophy and disc protrusions resulting in lateral recess and foraminal narrowing. Please see above for detailed description at each level. In addition, there is a small right paracentral disc herniation at T10-T11 abutting the anterior and right aspect of the cord. Dictated by: Issa Way MD 06/04/2020 10:[address] MD in [place] 06/04/2020 10:30
== END ==
PROVIDERS: PCP Nurse Practitioner; Visit Provider Nurse Practitioner
DX: M51.16 Intervertebral disc disorders with radiculopathy, lumbar region (principal)
CPT/HCPCS: 72148; 76376

== ENCOUNTER → 2020-09-19 14:50 | Outpatient (CLI) | payer MEDICARE, MEDICAID, SELFPAY ==
[2020-09-19 15:36] LABS: Basophils # 0.1 K/mm3 (0-0.2); Basophils % 0.5 % (0.1-2.0); Eosinophils # 0.1 K/mm3 (0.0-0.4); Eosinophils % 1.3 % (0.1-12.0); Hematocrit 41.1 % (37.0-47.0); Hemoglobin 13.6 g/dL (12.2-16.2); Lymphocytes # 2.2 K/mm3 (0.7-4.5); Lymphocytes % 22.7 % (10-50); Mean Corpuscular HGB Conc 33.2 g/dL (31.8-35.4); Mean Corpuscular Hemoglobin 29.5 pg (27.0-31.2); Mean Platelet Volume 8.8 fl (7.4-10.4); Monocytes # 0.6 K/mm3 (0.1-1.0); Monocytes % 5.6 % (1.7-9.3); Neutrophils # 6.9 K/mm3 (1.8-7.8); Neutrophils % 69.9 % (37.0-80.0); Platelet Count 355 K/mm3 (142-424); Red Blood Count 4.62 M/mm3 (4.20-5.40); Red Cell Distribution Width 13.2 % (11.5-17.5); White Blood Count 9.8 K/mm3 (4.8-10.8)
[2020-09-19 16:00] LABS: 25-OH Vitamin D, Total 28.5 ng/mL (30-100)
[2020-09-19 16:03] LABS: Chloride 101 mmol/L (98-107); Potassium 4.3 mmoL/L (3.5-5.1); Sodium 139 mmol/L (136-145)
[2020-09-19 16:05] LABS: Blood Urea Nitrogen 13 mg/dl (7-17); Estimated Glomerular Filt Rate 86 ml/min (>60); GFR (African American) 104 ML/MIN (>60)
[2020-09-19 16:06] LABS: Alanine Aminotransferase 14 U/L (12-78); Albumin/Globulin Ratio 1.8 (1.1-1.8); Alkaline Phosphatase 137 U/L (38-126); Anion Gap 17.3 mEq/L (5-15); Aspartate Amino Transferase 23 U/L (14-36); Bilirubin,Total 0.7 mg/dl (0.2-1.3); Calcium 10.2 mg/dl (8.4-10.2); Carbon Dioxide 25 mmol/L (22.0-30.0); Chol/HDL Ratio 5.1 (1-3.5); Cholesterol 301 mg/dl (140-200); Globulin 2.8 g/dL (1.3-3.2); Glucose 113 mg/dl (74-100); HDL Cholesterol 59 mg/dl (40-60); Total Protein,Serum 7.8 g/dl (6.3-8.2); Triglycerides 156 mg/dl (30-150); VLDL Cholesterol 31 mg/dL (0-40)
[2020-09-19 16:25] LABS: Amphetamine/Metha Screen,Urine Negative ng/ml (<1000); T4 (Thyroxine) 10.8 ug/dl (5.53-11.0)
[2020-09-19 16:29] LABS: Benzodiazepines Screen,Urine Negative ng/ml (<200); Cannabinoid Screen,Urine Negative ng/ml (<50)
[2020-09-19 16:30] LABS: Barbiturates Screen,Urine Negative ng/ml (<200)
[2020-09-19 16:31] LABS: Cocaine Screen,Urine Negative ng/ml (<300); Opiate Screen,Urine Negative ng/ml (<300)
[2020-09-19 16:32] LABS: Methadone Screen,Urine Negative ng/ml (<300)
[2020-09-19 16:33] LABS: Phencyclidine Screen,Urine Negative ng/ml (<25)
[2020-09-19 16:38] LABS: Thyroid Stimulating Hormone 1.23 uIU/mL (0.465-4.68)
== END ==
PROVIDERS: Visit Provider Nurse Practitioner Family
DX: N17.9 Acute kidney failure, unspecified (principal); N18.9 Chronic kidney disease, unspecified; D64.9 Anemia, unspecified; Z79.899 Other long term (current) drug therapy; Z91.19 Patient's noncompliance with other medical treatment and regimen; E78.5 Hyperlipidemia, unspecified; I10 Essential (primary) hypertension; E55.9 Vitamin D deficiency, unspecified
CPT/HCPCS: 80053; 80061; 80305; 82306; 84436; 84443; 85025

== ENCOUNTER → 2020-09-20 12:29 | Outpatient (CLI) | payer MEDICARE, MEDICAID, SELFPAY ==
--- NOTE | 2020-09-20 12:35 | US_ITS ---
APPROVED REPORT Exam Type: Ankle to Brachial Index [employer]: Tereza Ramos RCS, RVS Indications Claudication: Bilaterally History of Smoking Risk Factors Hypertension Current Smoker Pressures/Indices Right Indices Left Indices Brachial 120.00 mmHg Brachial 120.00 mmHg Low Thigh 122.00 mmHg 1.02 Low Thigh 125.00 mmHg 1.04 Calf 114.00 mmHg 0.95 Calf 122.00 mmHg 1.02 Ankle(PT) 119.00 mmHg 0.99 Ankle(PT) 118.00 mmHg 0.98 Ankle(DP) 121.00 mmHg 1.01 Ankle(DP) 117.00 mmHg 0.98 Digit 98.00 mmHg 0.82 Digit 111.00 mmHg 0.93 Findings RT LANDON=1.01 LT LANDON=0.98 RT TPI=0.82 LT TPI=0.93 Conclusion RT LANDON=1.01 LT LANDON=0.98 RT TPI=0.82 LT TPI=0.93 Normal ABIs Electronically signed by : Issa Way MD 09/20/2020 15:20:02
== END ==
PROVIDERS: PCP Nurse Practitioner Family; Visit Provider Podiatrist
DX: R09.89 Other specified symptoms and signs involving the circulatory and respiratory systems (principal)
CPT/HCPCS: 93923

== ENCOUNTER → 2020-12-18 18:11 | Outpatient (CLI) | payer MEDICARE, MEDICAID, SELFPAY ==
[2020-12-18 19:34] LABS: Amphetamine/Metha Screen,Urine Negative ng/ml (<1000); Barbiturates Screen,Urine Negative ng/ml (<200)
[2020-12-18 19:35] LABS: Benzodiazepines Screen,Urine Negative ng/ml (<200)
[2020-12-18 19:36] LABS: Cannabinoid Screen,Urine Negative ng/ml (<50); Cocaine Screen,Urine Negative ng/ml (<300)
[2020-12-18 19:37] LABS: Methadone Screen,Urine Negative ng/ml (<300); Opiate Screen,Urine Positive ng/ml (<300)
[2020-12-18 19:38] LABS: Phencyclidine Screen,Urine Negative ng/ml (<25)
== END ==
PROVIDERS: Visit Provider Nurse Practitioner Family
DX: Z91.19 Patient's noncompliance with other medical treatment and regimen (principal)
CPT/HCPCS: 80305

== ENCOUNTER → 2021-03-14 17:37 | Outpatient (CLI) | payer MEDICARE, MEDICAID, SELFPAY ==
[2021-03-14 18:41] LABS: Barbiturates Screen,Urine Negative ng/ml (<200); Benzodiazepines Screen,Urine Negative ng/ml (<200)
[2021-03-14 18:42] LABS: Amphetamine/Metha Screen,Urine Negative ng/ml (<1000); Methadone Screen,Urine Negative ng/ml (<300)
[2021-03-14 18:43] LABS: Cannabinoid Screen,Urine Negative ng/ml (<50)
[2021-03-14 18:44] LABS: Cocaine Screen,Urine Negative ng/ml (<300)
[2021-03-14 18:45] LABS: Opiate Screen,Urine Positive ng/ml (<300)
[2021-03-14 18:46] LABS: Phencyclidine Screen,Urine Negative ng/ml (<25)
== END ==
PROVIDERS: Visit Provider Nurse Practitioner Family
DX: Z91.19 Patient's noncompliance with other medical treatment and regimen (principal)
CPT/HCPCS: 80305

== ENCOUNTER → 2021-05-06 12:57 | Outpatient (CLI) | payer MEDICARE, MEDICAID, SELFPAY ==
--- NOTE | 2021-05-06 13:01 | XR_ITS ---
PROCEDURE: XR KNEE RT 4V CLINICAL INDICATION: R Knee Pain COMPARISON: CR [id number] KNEE-4 OR 5 VIEWS-LT from 11/08/2014 CR [id number] KNEE-3 VIEWS-LT from 09/12/2015 CR KNEE3R KNEE-3 VIEWS-RT from 10/02/2016 FINDINGS: No fracture or dislocation. No lytic or blastic change. There is normal mineralization. Minimal osteoarthritic change of the medial compartment and patellofemoral joint. There is exostosis along the medial aspect of the distal femur at the metaphyseal region. This could be result of prior trauma or could even be ligamentous calcification from prior MCL injury. This has developed since the previous exam. Other findings:None. IMPRESSION: Mild osteoarthritic change. Calcification along the distal femur medially which could be due to an area of exostosis or dystrophic calcification from prior ligamentous injury Dictated by: Issa Way MD 05/06/2021 16:[address] MD in [place] 05/06/2021 16:18
== END ==
PROVIDERS: PCP Nurse Practitioner Family; Visit Provider Nurse Practitioner Family
DX: M25.561 Pain in right knee (principal)
CPT/HCPCS: 73564

== ENCOUNTER → 2021-06-21 13:55 | Outpatient (CLI) | payer MEDICARE, MEDICAID, SELFPAY ==
--- NOTE | 2021-06-21 14:01 | XR_ITS ---
FINAL REPORT CLINICAL HISTORY: RT anterior knee pain for 2 months FINDINGS: RIGHT KNEE Four views demonstrate no acute fracture or dislocation. The joint spaces appear normal. No joint effusion is identified. The visualized bony structures are well aligned. No soft tissue abnormality is seen. IMPRESSION: No acute process. Reviewed, Interpreted and Dictated by Leeryo Gorman III, MD Transcribed by Jovita Quiroga Authenticated by Leeroy Gorman III, MD on 06/21/2021 03:35:10 PM [facility]
== END ==
PROVIDERS: PCP Nurse Practitioner Family; Visit Provider Orthopaedic Surgery
DX: M25.561 Pain in right knee (principal)
CPT/HCPCS: 73564

== ENCOUNTER → 2021-07-03 17:47 | Outpatient (CLI) | payer MEDICARE, MEDICAID, SELFPAY ==
[2021-07-03 18:52] LABS: Basophils # 0.1 K/mm3 (0-0.2); Basophils % 0.7 % (0.1-2.0); Eosinophils # 0.2 K/mm3 (0.0-0.4); Eosinophils % 1.9 % (0.1-12.0); Hematocrit 41.4 % (37.0-47.0); Hemoglobin 13.6 g/dL (12.2-16.2); Lymphocytes # 4.9 K/mm3 (0.7-4.5); Lymphocytes % 38.3 % (10-50); Mean Corpuscular Volume 91.1 fl (81-99); Mean Platelet Volume 8.3 fl (7.4-10.4); Monocytes # 0.7 K/mm3 (0.1-1.0); Monocytes % 5.2 % (1.7-9.3); Neutrophils # 6.8 K/mm3 (1.8-7.8); Neutrophils % 53.9 % (37.0-80.0); Platelet Count 420 K/mm3 (142-424); Red Blood Count 4.54 M/mm3 (4.20-5.40); Red Cell Distribution Width 13.7 % (11.5-17.5); White Blood Count 12.7 K/mm3 (4.8-10.8)
[2021-07-03 18:59] LABS: Alanine Aminotransferase 18 U/L (12-78); Albumin Level 5.2 g/dl (3.5-5.0); Albumin/Globulin Ratio 1.8 (1.1-1.8); Alkaline Phosphatase 121 U/L (38-126); Aspartate Amino Transferase 26 U/L (14-36); Bilirubin,Total 0.4 mg/dl (0.2-1.3); Blood Urea Nitrogen 14 mg/dl (7-17); Calcium 10.4 mg/dl (8.4-10.2); Chloride 101 mmol/L (98-107); Chol/HDL Ratio 4.1 (1-3.5); Cholesterol 285 mg/dl (140-200); Estimated Glomerular Filt Rate 73 ml/min (>60); GFR (African American) 89 ML/MIN (>60); Globulin 2.9 g/dL (1.3-3.2); Glucose 67 mg/dl (74-100); HDL Cholesterol 69 mg/dl (40-60); Total Protein,Serum 8.1 g/dl (6.3-8.2); Triglycerides 204 mg/dl (30-150); VLDL Cholesterol 41 mg/dL (0-40)
[2021-07-03 19:05] LABS: Anion Gap 16.6 mEq/L (5-15); Carbon Dioxide 27 mmol/L (22.0-30.0); Potassium 3.6 mmoL/L (3.5-5.1); Sodium 141 mmol/L (136-145)
[2021-07-03 19:10] LABS: Direct LDL Cholesterol 152.73 mg/dL (100-129); Hemoglobin A1C 5.6 % (4.0-6.0)
[2021-07-03 19:16] LABS: 25-OH Vitamin D, Total 36.6 ng/mL (30-100)
[2021-07-03 19:30] LABS: Thyroid Stimulating Hormone 0.88 uIU/mL (0.465-4.68)
== END ==
PROVIDERS: Visit Provider Nurse Practitioner Family
DX: R73.03 Prediabetes (principal); G47.33 Obstructive sleep apnea (adult) (pediatric); E66.9 Obesity, unspecified; Z68.31 Body mass index [BMI] 31.0-31.9, adult
CPT/HCPCS: 80053; 80061; 82306; 83036; 84443; 85025

== ENCOUNTER → 2021-08-30 09:49 | Outpatient (CLI) | payer MEDICARE, MEDICAID, SELFPAY ==
--- NOTE | 2021-08-30 09:50 | MM_ITS ---
PROCEDURE INFORMATION: Exam: MG Bilateral Screening 3D Mammography Exam date and time: 08/30/2021 9:52 AM Age: 61 years old Clinical indication: Screening mammogram TECHNIQUE: Imaging protocol: Bilateral Screening tomosynthesis and 2D mammography including computer-aided detection (CAD) when performed. COMPARISON: 1. MG DIG MAMM-DX UNI-RT 12/10/2018 2:22 PM 2. MG DXRT MM Dig mamm DX unilat RT CAD 04/16/2018 3:22 PM 3. MG SCBI MM Dig screening mamm BI w/CAD 03/25/2018 11:06 AM 4. MG DMSB DIG MAMM-SCREEN SHERRY 03/10/2016 2:52 PM FINDINGS: MAMMOGRAPHY: Breast composition: There are scattered areas of fibroglandular density. Mass: None. Architectural distortion: No new or suspicious architectural distortion. Calcifications: Stable benign-appearing calcifications are present. No new or suspicious cluster of microcalcifications have developed. Asymmetric density: No new or suspicious asymmetric density is present Skin thickening: None. Axillary adenopathy: None. IMPRESSION: No mammographic evidence of malignancy. Recommend annual screening mammography unless otherwise clinically indicated. ASSESSMENT: BI-RADS category 2: Benign
== END ==
PROVIDERS: PCP Nurse Practitioner Family; Visit Provider Nurse Practitioner Family
DX: Z12.31 Encounter for screening mammogram for malignant neoplasm of breast (principal)
CPT/HCPCS: 77063; 77067

== ENCOUNTER 2021-09-02 09:49 | Outpatient (RCR) | payer MEDICARE, MEDICAID, SELFPAY | END 2021-09-02 10:47 | disposition home or self-care (01) | LOC: PT 09:49 | PROVIDERS: Visit Provider Orthopaedic Surgery | DX: M17.11 Unilateral primary osteoarthritis, right knee (principal) | CPT/HCPCS: 97760 ==

== ENCOUNTER → 2021-09-17 10:13 | Outpatient (CLI) | payer MEDICARE, MEDICAID, SELFPAY ==
--- NOTE | 2021-09-17 10:14 | MR_ITS ---
FINAL REPORT CLINICAL HISTORY: Numbness/tingling BLE, LOW BACK PAIN COMPARISON: 05/29/2020 FINDINGS: Multiplanar MR imaging of the lumbar spine was performed without contrast. On the sagittal T2-weighted images, there is abnormal decreased signal throughout the lumbar discs. There is a 50% compression deformity of T12, stable since prior. The vertebral alignment is normal. T12-L1: There is no significant canal stenosis or neural foraminal narrowing. L1-2: Dspo-mx-fhukague diffuse disc bulge is present. There is [id number] bilateral neural foraminal narrowing. L2-3: Moderate diffuse disc bulge is present. There is a disc extrusion extending inferiorly. There is moderate spinal canal compromise. L3-4: Moderate diffuse disc bulge is present with moderate left posterolateral disc protrusion. There is moderate to high-grade left neural foraminal narrowing. L4-5: There is a right paracentral disc protrusion/extrusion. There is moderate compromise of the right lateral recess and high-grade right neural foraminal narrowing. L5-S1: Mild diffuse disc bulge is present with mild endplate hypertrophy. There is [id number] bilateral neural foraminal narrowing. IMPRESSION: Disc extrusion extending inferiorly at L2-3 with moderate spinal canal compromise. Left posterolateral disc protrusion at L3-4 with moderate to high-grade left neural foraminal narrowing. Right paracentral disc protrusion/extrusion at L4-5 with high-grade right neural foraminal narrowing. Reviewed, Interpreted and Dictated by Rick Lynn MD Transcribed by Jovita Quiroga Authenticated by Rick Lynn MD on 09/17/2021 02:04:30 PM [facility]
== END ==
PROVIDERS: PCP Nurse Practitioner Family; Visit Provider Nurse Practitioner Family
DX: R20.0 Anesthesia of skin (principal); R20.2 Paresthesia of skin; M54.50 Low back pain, unspecified
CPT/HCPCS: 72148; 76376

== ENCOUNTER 2021-09-19 14:00 | Outpatient (RCR) | payer MEDICARE, MEDICAID, SELFPAY ==
--- NOTE | 2021-09-10 15:24 | HMH.PTOPEV ---
PT Outpatient Evaluation Rehab PT Outpatient Evaluation Start: 09/10/21 14:52 Freq: Status: Active Protocol: Document 09/10/21 15:08 GIOVANNA (Rec: 09/10/21 15:24 GIOVANNA [id number]) Electronically Signed By Haresh Espinoza, PT 09/10/21 15:08 Outpatient Therapy Subjective History Subjective History Pt reports h/o chronic right knee pain for ~2 yrs, insidious onset. Pt reports exacerbation over the last ~ 6months. Pt reports 'cortizone injection a couple months has helped', and recent imaging has revealed right knee OA. Pt reports severe medial and anterior right knee pain with walking and stairs. Chief Complaint Pain,Stiff,Swelling,Weakness Symptom Type Ache,Sharp,Dull,Stabbing Symptoms Relieved By Rest/Positioning,Prescription Meds Symptoms Aggravated By Standing,Physical Activity, Walking Prior Functional Limitations Housework,Walking,Stairs Current Functional Limitations Housework,Squatting,Walking, Stairs Symptom Description Constant but Variable Level of pain today (0-10) 7 Pain scale - at its best (0-10) 4 Pain scale - at its worst (0-10) 9 Hip/Knee Eval Gait Observation General Gait Pattern Observation Antalgic Gait Assistive Device Assistive Devices None / NA Palpation Tenderness right Knee Palpation Finding Tenderness Knee Palpation Overall Comment 3/4 medial jt line, 2/4 lateral jt line MMT Hip Flexion Strength Grade 4 Good Hip Abduction Strength Grade 4- Good- Hip Adduction Strength Grade 3+ Fair+ Hip Extension Strength Grade 4- Good- Hip External Rotation Strength Grade 3+ Fair+ Hip Internal Rotation Strength Grade 4- Good- Knee Extension Strength Grade 4 Good Knee Flexion Strength Grade 4 Good ROM Knee Flexion Active Range of Motion ( 3-108 degrees) Effusion joint effusion knee exam standard right Mid - Patellar Circumerential Measure ( 49 cm) Special Tests Knee Valgus Stress Test Negative Right Knee Varus Stress Test Negative Right Knee Hermes Test Negative Right Patellar Compression Test Negative Right Patellar Tilt Test Negative Right Outpatient Therapy Assessment Impairments Problems/Impairmments Palpation Tenderness,Impaired Range of Motion,Impaired
== END 2021-09-19 14:05 | disposition home or self-care (01) ==
LOC: PT 14:00
PROVIDERS: PCP Nurse Practitioner Family; Visit Provider Orthopaedic Surgery
DX: M17.11 Unilateral primary osteoarthritis, right knee (principal)
CPT/HCPCS: 97010; 97014; 97110; 97163; G0283

== ENCOUNTER → 2021-12-10 13:21 | Outpatient (CLI) | payer MEDICARE, MEDICAID, SELFPAY ==
--- NOTE | 2021-12-10 13:24 | CT_ITS ---
FINAL REPORT TECHNIQUE: Axial imaging of the lumbar spine was obtained without contrast. Sagittal and coronal reformatted images were also obtained and reviewed. This study was performed with techniques to keep radiation doses as low as reasonably achievable (ALARA). Individualized dose reduction techniques using automated exposure control or adjustment of mA and/or kV according to the patient''s size were employed. CLINICAL HISTORY: DEGENERATIVE LUMBAR SPINAL STENOSIS FINDINGS: Is a moderate chronic T12 compression fracture. There is a mild chronic L5 superior endplate compression fracture. There is mild retrolisthesis of L1 on L2 and L2 on L3. There are multilevel endplate changes which are greatest at L3-4. There is multilevel vacuum disc phenomenon. There is no evidence of significant central canal stenosis. T11-12: An annular bulge is present. Vertebral osteophytes are present. T12-L1: An annular bulge is present. There is no evidence of central canal stenosis or neural foraminal narrowing. L1-L2: An annular bulge is present. Vertebral osteophytes are present. There is mild bilateral neural foraminal narrowing. L2-L3: There is an annular disc bulge with facet arthropathy and vertebral osteophytes. There is mild right and moderate left neural foraminal narrowing. There is mild central canal stenosis with an AP diameter of the thecal sac of 7 mm. There is a left paracentral disc protrusion with possible left L3 nerve root impingement. L3-L4: There is an annular disc bulge with facet arthropathy and vertebral osteophytes. There is moderate bilateral neural foraminal narrowing. There is moderate central canal stenosis with an AP diameter of the thecal sac of 6 mm. L4-L5: There is an annular disc bulge with facet arthropathy and vertebral osteophytes. There is severe right and moderate left neural foraminal narrowing. There is mild central canal stenosis with an AP diameter of the thecal sac of 7 mm. L5-S1: There is an annular disc bulge with facet arthropathy and vertebral osteophytes. There is severe bilateral neural foraminal narrowing. IMPRESSION: Multilevel degenerative change with areas of neural foraminal narrowing worse at L4-5 and L5-S1. Central canal stenosis at L2-L3, L3-L4 and L4-L5. L2-3 left paracentral disc protrusion with possible left L3 nerve root impingement. Reviewed, Interpreted and Dictated by Leeroy Gorman III, MD Transcribed by Cecilia Weiss Authenticated and [facility]
== END ==
PROVIDERS: PCP Nurse Practitioner Family; Visit Provider Clinical Nurse Specialist Family Health
DX: M48.061 Spinal stenosis, lumbar region without neurogenic claudication (principal)
CPT/HCPCS: 72131

== ENCOUNTER → 2022-01-08 06:27 | Outpatient (CLI) | payer MEDICARE, MEDICAID, SELFPAY ==
--- NOTE | 2022-01-08 | CA_ITS ---
APPROVED REPORT Exam: Nuclear Stress Test Indication: HTN, HYPERLIPIDEMIA, FM HX, SOB, ABN EKG Patient Location: Outpatient Stress Tech: Claudia Brown [place] Tech:Tonie Jensen, ARRT, RT (R)(N) Ht: 5 ft 5 in Wt: 228 lbs HR: 59 bpm BP: 139/67 mmHg BSA: 2.09 m2 Rhythm: sinus rosetta, low voltage QRS, NS ST abnormality TID: 1.20 BMI: 37.9 History: HTN, HYPERLIPIDEMIA, FM HX, SOB, ABN EKG Procedure: Patient received a 0.4 mg of intravenous Lexiscan, resting heart rate 61 bpm, resting blood pressure 139/67 mmHg, with Lexiscan maximum heart rate achived was 85 bpm which is Less than 85 % of the maximum predicted heart rate and blood pressure was 137/63 mmHg. With Lexiscan, patient denied any complaint of chest pain. Electrocardiogram Resting electrocardiogram shows sinus rhythm nonspecific ST-T changes, with Lexiscan less than 1.[address] segment depression noted from the baseline EKG. The EKG portion of the Lexiscan is nondiagnostic. Cardiac Stress and Resting SPECT Images: Cardiac Stress and Resting SPECT images were obtained using technetium 99m Myoview 32.3 mCi stress and 10.14 mCi at rest. Gated SPECT analysis of segmental wall motion and calculation of the ejection fraction also done. Cardiac stress and rest SPECT images show uniform myocardial activity without segmental perfusion abnormality, computer derived ejection fraction is 61% with no regional wall motion abnormality, right ventricle is normal size and contractility. Conclusion: 1. The EKG portion of the Lexiscan is nondiagnostic. 2. No scintigraphic evidence of reversible ischemia seen, computer derived ejection fraction is 61% with no regional wall motion abnormality, right ventricle is normal size and contractility. 3. Normal Lexiscan Myoview study. Electronically signed by : Esau Amos MD 01/08/2022 18:04:43
--- NOTE | 2022-01-08 06:31 | NM_ITS ---
APPROVED REPORT Exam: Nuclear Stress Test Indication: short of breath Patient Location: Outpatient Stress Tech: Paula Womack [place] Tech:AGATA Law RT (R)(N)(M) Ht: 5 ft 3 in Wt: 198 lbs Bra Size: b HR: 61 bpm BP: 139/67 mmHg BSA: 1.93 m2 TID: 1.20 BMI: 35.0 History: short of breath Procedure: Patient received a 0.4 mg of intravenous Lexiscan, resting heart rate 61 bpm, resting blood pressure 139/67 mmHg, with Lexiscan maximum heart rate achived was 85 bpm which is 85 % of the maximum predicted heart rate and blood pressure was 137/63 mmHg. With Lexiscan, patient denied any complaint of chest pain. Electrocardiogram Resting electrocardiogram shows sinus rhythm nonspecific ST-T changes, with Lexiscan less than 1.[address] segment depression noted from the baseline EKG. The EKG portion of the Lexiscan is nondiagnostic. Cardiac Stress and Resting SPECT Images: Cardiac Stress and Resting SPECT images were obtained using technetium 99m Myoview 32.3 mCi stress and 10.14 mCi at rest. Gated SPECT analysis of segmental wall motion and calculation of the ejection fraction also done. Cardiac stress and rest SPECT images show uniform myocardial activity without segmental perfusion abnormality, computer derived ejection fraction is 61% with no regional wall motion abnormality, right ventricle is normal size and contractility. Conclusion: 1. The EKG portion of the Lexiscan is nondiagnostic. 2. No scintigraphic evidence of reversible ischemia seen, computer derived ejection fraction is 61% with no regional wall motion abnormality, right ventricle is normal size and contractility. 3. Normal Lexiscan Myoview study. Electronically signed by : Esau Amos MD 01/16/2022 08:19:33
--- NOTE | 2022-01-08 08:14 | HMH.ITSHM ---
Current Home Medications as stated by this patient Rekha Greco or account representative. []TIZANIDINE SIMVASTATIN QUETIAPINE OXYBUTYNIN METOPROLOL LOSARTAN HYDROCODONE GABAPENTIN DULOXTINE DICLOFENAC CETERIZINE AMLODIPINE ALBUTEROL VITAMIN D3
--- NOTE | 2022-01-08 08:21 | CA_ITS ---
APPROVED REPORT EXAM: Comprehensive 2D, Doppler, and color-flow Echocardiogram Destination Coordinator: Brigette Johnson CRT Ht: 5 ft 5 in Wt: 228lbs BSA: 2.09 BP: 87/45 mmHg Indications: Abnormal ECG, Murmur, Shortness of Breath, Hypertension/HDD 2D Dimensions LVOT 1.65 cm (M/F) 1.5-2.5 LA Volume 51.10 mL LA Volume Index 24.40 mL/m2 (M/F) 16-34 M-Mode Dimensions RVDd 1.99 cm (0.9-2.6) LA Diam 3.90 cm (1.9-4.0) LVDd 6.19 cm (3.5-5.7) Ao Diam 3.23 cm (2.0-3.7) LVDs 3.13 cm (3.5-5.7) IVSd 0.89 cm (0.6-1.1) PWd 0.82 cm (0.6-1.1) EF (Teich) 79.90% FS 49.40% EDV (Teich) 193.30 mL TAPSE 3.67 (<1.7) ESV (Teich) 38.80 mL LV Diastology MED E' 5.40 (< 7 cm/sec) MED A' 8.70 cm/s LAT E' 7.00 (<10 cm/sec) LAT A' 8.30 cm/s Aortic Valve LVOT Max 180.00 (70-110 cm/s) LVOT VTI 49.86 cm AoV Peak Tutu. 245.00 (50-130 cm/s) AO Peak GR. 24.00 mmHg AO Mean GR. 13.20 (<5 mmHg) AO VTI 60.77 (18-25 cm) ARNOLD (VTI) 1.75 (2.5-4.5 cm2) Pulmonary Valve PV Peak Velocity 95.00 (50-150 cm/s) Tricuspid Valve TR P. Velocity 168.00 cm/s RAP Estimate 10.00 mmHg RVSP 21.30 mmHg Left Ventricle Left atrium is mildly enlarged, left ventricle is normal size mild concentric left ventricular hypertrophy, estimated ejection fraction 55% with no regional wall motion abnormality. Grade 1 diastolic dysfunction seen without tissue Doppler evidence of atrial atrial pressure. Right Ventricle Right atrium and right ventricle are normal size and contractility. Aortic Valve Aortic valve is thickened and calcified, mean gradient across valve is 13 mmHg, valve area is 1.7 cm??? represents mild aortic stenosis, there is no significant aortic insufficiency. Mitral Valve Mitral valve leaflets are minimally thickened, there is no significant mitral stenosis, there is mild mitral regurgitation. Tricuspid Valve Tricuspid valve grossly normal, there is mild tricuspid regurgitation, tricuspid regurgitation jet velocity is inadequate for calculation of the right ventricular systolic pressure. Pulmonic Valve Pulmonic valve is poorly visualized. Great Vessels Aortic root is normal size. Inferior vena cava is normal size with normal inspiratory collapse. Pericardium No significant pericardial effusion noted. Conclusion 1. Mildly enlarged left atrium, normal left ventricular size mild concentric left ventricular hypertrophy, estimated ejection fraction 55% with no regional wall motion abnormality, grade 1 diastolic dysfunction seen without tissue Doppler evidence of raise left atrial pressure. 2. Thickened and calcified aortic valve with mild aortic stenosis, there is no aortic insufficiency. 3. Mild mitral and tricuspid regurgitation. 4. No significant pericardial effusion noted. 5. Inferior vena cava normal size with normal inspiratory collapse. Electronically signed by : Esau Amos MD 01/08/2022 13:00:05
== END ==
PROVIDERS: PCP Nurse Practitioner Family; Visit Provider Nurse Practitioner Family
DX: R94.31 Abnormal electrocardiogram [ECG] [EKG] (principal)
CPT/HCPCS: 78452; 93017; 93306; A9502; J2785

== ENCOUNTER 2022-01-22 13:00 | Outpatient (RCR) | payer MEDICARE, MEDICAID, SELFPAY | END 2022-01-22 13:05 | disposition home or self-care (01) | LOC: PT 13:00 | PROVIDERS: PCP Nurse Practitioner Family; Visit Provider Neurological Surgery | DX: M48.062 Spinal stenosis, lumbar region with neurogenic claudication (principal) | CPT/HCPCS: 97010; 97014; 97110; 97112; 97163; 97164; 97530; 97535; G0283 ==

== ENCOUNTER → 2022-03-12 09:50 | Outpatient (CLI) | payer MEDICARE, MEDICAID, SELFPAY ==
[2022-03-12 19:09] LABS: Amphetamine/Metha Screen,Urine Negative ng/ml (<1000); Barbiturates Screen,Urine Negative ng/ml (<200)
[2022-03-12 19:10] LABS: Benzodiazepines Screen,Urine Negative ng/ml (<200)
[2022-03-12 19:11] LABS: Cannabinoid Screen,Urine Negative ng/ml (<50); Cocaine Screen,Urine Negative ng/ml (<300)
[2022-03-12 19:12] LABS: Methadone Screen,Urine Negative ng/ml (<300)
[2022-03-12 19:13] LABS: Opiate Screen,Urine Positive ng/ml (<300); Phencyclidine Screen,Urine Negative ng/ml (<25)
== END ==
PROVIDERS: PCP Nurse Practitioner Family; Visit Provider Nurse Practitioner Family
DX: Z79.899 Other long term (current) drug therapy
CPT/HCPCS: 80305

== ENCOUNTER → 2022-06-19 10:10 | Outpatient (CLI) | payer MEDICARE, MEDICAID, SELFPAY ==
[2022-06-19 15:29] LABS: Amphetamine/Metha Screen,Urine Negative ng/ml (<1000)
[2022-06-19 15:30] LABS: Barbiturates Screen,Urine Negative ng/ml (<200)
[2022-06-19 15:31] LABS: Benzodiazepines Screen,Urine Negative ng/ml (<200)
[2022-06-19 15:32] LABS: Cocaine Screen,Urine Negative ng/ml (<300); Methadone Screen,Urine Negative ng/ml (<300)
[2022-06-19 15:33] LABS: Opiate Screen,Urine Positive ng/ml (<300)
[2022-06-19 15:34] LABS: Phencyclidine Screen,Urine Negative ng/ml (<25)
[2022-06-19 15:39] LABS: Cannabinoid Screen,Urine Negative ng/ml (<50)
== END ==
PROVIDERS: PCP Nurse Practitioner Family; Visit Provider Nurse Practitioner Family
DX: M51.16 Intervertebral disc disorders with radiculopathy, lumbar region (principal)
CPT/HCPCS: 80305

== ENCOUNTER → 2022-10-08 11:10 | Outpatient (CLI) | payer MEDICARE, MEDICAID, SELFPAY ==
[2022-10-08 14:41] LABS: Chloride 93 mmol/L (98-107); Potassium 4.4 mmoL/L (3.5-5.1); Sodium 136 mmol/L (136-145)
[2022-10-08 14:44] LABS: Alanine Aminotransferase 20 U/L (12-78); Albumin Level 4.8 g/dl (3.5-5.0); Albumin/Globulin Ratio 1.7 (1.1-1.8); Alkaline Phosphatase 99 U/L (38-126); Anion Gap 19.4 mEq/L (5-15); Aspartate Amino Transferase 28 U/L (14-36); Bilirubin,Total 0.5 mg/dl (0.2-1.3); Blood Urea Nitrogen 15 mg/dl (7-17); Calcium 9.7 mg/dl (8.4-10.2); Carbon Dioxide 28 mmol/L (22.0-30.0); Cholesterol 172 mg/dl (140-200); Estimated Glomerular Filt Rate 73 ml/min (>60); GFR (African American) 88 ML/MIN (>60); Globulin 2.9 g/dL (1.3-3.2); Glucose 104 mg/dl (74-100); Total Protein,Serum 7.7 g/dl (6.3-8.2); Triglycerides 185 mg/dl (30-150); VLDL Cholesterol 37 mg/dL (0-40)
[2022-10-08 14:45] LABS: Chol/HDL Ratio 2.6 (1-3.5); HDL Cholesterol 65 mg/dl (40-60)
[2022-10-08 14:56] LABS: Direct LDL Cholesterol 65.87 mg/dL (100-129)
[2022-10-08 14:59] LABS: Basophils % 0.5 % (0.1-2.0); Eosinophils # 0.2 K/mm3 (0.0-0.4); Eosinophils % 2.3 % (0.1-12.0); Hematocrit 39.1 % (37.0-47.0); Hemoglobin 12.7 g/dL (12.2-16.2); Lymphocytes # 2.5 K/mm3 (0.7-4.5); Lymphocytes % 29.9 % (10-50); Mean Corpuscular HGB Conc 32.6 g/dL (31.8-35.4); Mean Corpuscular Hemoglobin 29.9 pg (27.0-31.2); Mean Corpuscular Volume 91.8 fl (81-99); Mean Platelet Volume 7.3 fl (7.4-10.4); Monocytes # 0.5 K/mm3 (0.1-1.0); Monocytes % 5.7 % (1.7-9.3); Neutrophils # 5.1 K/mm3 (1.8-7.8); Neutrophils % 61.5 % (37.0-80.0); Platelet Count 382 K/mm3 (142-424); Red Blood Count 4.26 M/mm3 (4.20-5.40); Red Cell Distribution Width 13.2 % (11.5-17.5); White Blood Count 8.2 K/mm3 (4.8-10.8)
[2022-10-08 15:02] LABS: Triiodothryronine (T3) Uptake 29 % (23.5-40.5)
[2022-10-08 15:03] LABS: Free T4 (Free Thyroxine) 1.05 ng/dl (0.78-2.19); Free Thyroxine Index 2.3 ug/dL (5.93-13.13); T4 (Thyroxine) 7.8 ug/dl (5.53-11.0)
[2022-10-08 15:16] LABS: Thyroid Stimulating Hormone 1.21 uIU/mL (0.465-4.68)
== END ==
PROVIDERS: PCP Nurse Practitioner Family; Visit Provider Nurse Practitioner Family
DX: E78.5 Hyperlipidemia, unspecified (principal); R53.83 Other fatigue; I10 Essential (primary) hypertension; E55.9 Vitamin D deficiency, unspecified
CPT/HCPCS: 80053; 80061; 82306; 84436; 84439; 84443; 84479; 85025

== ENCOUNTER → 2022-11-06 11:30 | Outpatient (CLI) | payer MEDICARE, MEDICAID, SELFPAY ==
[2022-11-06 12:58] LABS: Adenovirus,PCR Not Detected (NotDetected); Bordetella Pertussis Not Detected (NotDetected); Chlamydophila Pneumoniae, PCR Not Detected (NotDetected); Coronavirus 19, PCR Not Detected (NotDetected); Coronavirus 229E Not Detected (NotDetected); Coronavirus NL63 Not Detected (NotDetected); Coronavirus OC43 Not Detected (NotDetected); Coronovirus HKU1,PCR Not Detected (NotDetected); Human Metapneumovirus Not Detected (NotDetected); Influenza A, PCR Not Detected (NotDetected); Influenza AH1, 2009 Not Detected (NotDetected); Influenza AH1, PCR Not Detected (NotDetected); Influenza AH3,PCR Not Detected (NotDetected); Influenza B, PCR Not Detected (NotDetected); Mycoplasma Pneumoniae, PCR Not Detected (NotDetected); Parainfluenza 1, PCR Not Detected (NotDetected); Parainfluenza 2, PCR Not Detected (NotDetected); Parainfluenza 3, PCR Not Detected (NotDetected); Parainfluenza 4, PCR Not Detected (NotDetected); Respiratory Syncytial Virus Not Detected (NotDetected); Rhinovirus/Enterovirus Not Detected (NotDetected)
== END ==
PROVIDERS: PCP Nurse Practitioner Family; Visit Provider Nurse Practitioner Family
DX: R68.89 Other general symptoms and signs (principal); R11.0 Nausea
CPT/HCPCS: 87581; 87632; 87635; 87798; C9803; U0003; U0005

== ENCOUNTER → 2023-02-10 10:11 | Outpatient (CLI) | payer MEDICARE, MEDICAID, SELFPAY ==
--- NOTE | 2023-02-10 10:16 | XR_ITS ---
FINAL REPORT CLINICAL HISTORY: rt ankle pain FINDINGS: RIGHT ANKLE: Three weightbearing views of the right ankle were obtained. There is no acute fracture or dislocation. There are mild degenerative changes. There are small calcaneal spurs. There is no soft tissue abnormality. IMPRESSION: Mild degenerative change. Reviewed, Interpreted and Dictated by Leeroy Gorman III, MD Transcribed by Jimmie Spencer Authenticated and [facility]
--- NOTE | 2023-02-10 10:16 | XR_ITS ---
FINAL REPORT CLINICAL HISTORY: Bilat foot pain/swelling. Hx of 3 fx & 2 sx in left foot. Hx of 7 fx in right foot. FINDINGS: 3 weightbearing views of the left foot were obtained. There is fusion of the tibiotalar joint with a screw plate and multiple screws. There is no acute fracture or dislocation. There are mild and moderate degenerative changes greatest at the first MTP joint. Calcaneal spurs are present. IMPRESSION: Postoperative and degenerative changes. Reviewed, Interpreted and Dictated by Leeroy Gorman III, MD Transcribed by Jimmie Spencer Authenticated and [facility]
--- NOTE | 2023-02-10 10:16 | XR_ITS ---
FINAL REPORT CLINICAL HISTORY: Bilat foot pain/swelling. Hx of 3 fx & 2 sx in left foot. Hx of 7 fx in right foot. FINDINGS: 3 weightbearing views of the right foot were obtained. There is no acute fracture or dislocation. There are mild degenerative changes. There is a plantar calcaneal spur. The soft tissues are unremarkable. IMPRESSION: Mild degenerative change. Reviewed, Interpreted and Dictated by Leeroy Gorman III, MD Transcribed by Jimmie Spencer Authenticated and [facility]
== END ==
PROVIDERS: PCP Nurse Practitioner Family; Visit Provider Nurse Practitioner Family
DX: Z98.1 Arthrodesis status (principal); M79.671 Pain in right foot; M25.571 Pain in right ankle and joints of right foot; M79.672 Pain in left foot
CPT/HCPCS: 73610; 73630

== ENCOUNTER → 2023-03-11 12:00 | Outpatient (CLI) | payer MEDICARE, MEDICAID, SELFPAY ==
[2023-03-11 19:13] LABS: 25-OH Vitamin D, Total 25.9 ng/mL (30-100)
[2023-03-11 20:57] LABS: Ferritin 88.2 ng/ml (11.1-264)
== END ==
PROVIDERS: PCP Internal Medicine; Visit Provider Internal Medicine
DX: D64.9 Anemia, unspecified (principal); E55.9 Vitamin D deficiency, unspecified; R53.83 Other fatigue
CPT/HCPCS: 82306; 82728

== ENCOUNTER → 2023-03-13 11:07 | Outpatient (CLI) | payer MEDICARE, MEDICAID, SELFPAY ==
--- NOTE | 2023-03-13 11:12 | XR_ITS ---
FINAL REPORT CLINICAL HISTORY: R Knee pain FINDINGS: RIGHT KNEE 3 views were obtained. There is no acute fracture or dislocation. There is a chronic calcification along the medial femoral condyle. A small joint effusion is noted. There are mild degenerative changes. There is no soft tissue abnormality. IMPRESSION: No acute bony abnormality. Reviewed, Interpreted and Dictated by Leeroy Gorman III, MD Transcribed by Grace Oates Authenticated and [facility]
--- NOTE | 2023-03-13 11:12 | XR_ITS ---
FINAL REPORT CLINICAL HISTORY: pain in lower back FINDINGS: THORACIC SPINE 2 views were obtained. There is no acute fracture. There is mild leftward curvature. There are mild and moderate degenerative changes with multilevel osteophytes. There is no soft tissue abnormality. IMPRESSION: Degenerative changes with no acute bony abnormality. Reviewed, Interpreted and Dictated by Leeroy Gorman III, MD Transcribed by Grace Oates Authenticated and [facility]
--- NOTE | 2023-03-13 11:12 | XR_ITS ---
FINAL REPORT CLINICAL HISTORY: pain in lower back FINDINGS: PELVIS 1 view was obtained.. There is no acute fracture or dislocation. The joint spaces are intact. Degenerative changes are seen in the lower lumbar spine. There is no soft tissue abnormality. IMPRESSION: No acute bony abnormality. Reviewed, Interpreted and Dictated by Leeroy Gorman III, MD Transcribed by Grace Oates Authenticated and [facility]
== END ==
PROVIDERS: PCP Nurse Practitioner Family; Visit Provider Internal Medicine
DX: M54.50 Low back pain, unspecified; M25.561 Pain in right knee
CPT/HCPCS: 72072; 72190; 73562

== ENCOUNTER → 2023-04-02 13:00 | Outpatient (CLI) | payer MEDICARE, MEDICAID, SELFPAY ==
--- NOTE | 2023-04-02 13:01 | MR_ITS ---
FINAL REPORT CLINICAL HISTORY: Low Back Pain. Hx of DDD. Pain radiates down bilateral extremities. COMPARISON: 09/17/2021 FINDINGS: Multiplanar MR imaging of the lumbar spine was performed without contrast. On the sagittal T2-weighted images, disc degeneration is seen throughout. There are slight degenerative changes at multiple levels. The vertebral alignment is normal. There is a chronic moderate T12 compression fracture present, stable. There is a chronic L5 superior endplate compression fracture as well. The conus has an unremarkable appearance. L1-2: An annular bulge is present with osteophytes and facet osteoarthropathy. There is a left paracentral superiorly extruded disc herniation, worse than noted on the prior MRI. There is mild bilateral neural foraminal narrowing. L2-3: An annular bulge is present with osteophytes and osteoarthropathy. There is a left paracentral inferiorly extruded and somewhat lobular appearing disc, stable since the prior MRI. There is left L3 nerve root impingement, mild right and moderate left neural foraminal narrowing, and mild canal stenosis with an AP canal diameter of 7 mm. L3-4: An annular bulge is present with osteophytes and facet osteoarthropathy. There is a left foraminal disc protrusion, with mild right and moderate left neural foraminal narrowing. L4-5: An annular bulge is present with osteophytes and facet osteoarthropathy. There is a right paracentral superiorly extruded disc, worse than seen on the prior MR. There is right lateral recess stenosis, right L5 nerve root impingement, severe left and moderate right neural foraminal narrowing. There is mild canal stenosis with an AP canal diameter of 7 mm. L5-S1: An annular bulge is present with osteophytes and facet osteoarthropathy. There is severe right and moderate left neural foraminal narrowing. IMPRESSION: Multilevel degenerative disc disease and spondylosis as described. At the L1-2 and L4-5 levels the extruded disc material is more prominent than noted on the prior MRI of 2021. Chronic moderate T12 compression fracture, and chronic L5 superior endplate compression fracture. Reviewed, Interpreted and Dictated by Leeroy Gorman III, MD Transcribed by Kelly Sousa Authenticated and . [facility]
== END ==
PROVIDERS: PCP Nurse Practitioner Family; Visit Provider Nurse Practitioner Family
DX: M54.16 Radiculopathy, lumbar region (principal); M48.00 Spinal stenosis, site unspecified
CPT/HCPCS: 72148; 76376

== ENCOUNTER → 2023-04-14 13:58 | Outpatient (CLI) | payer MEDICARE, MEDICAID, SELFPAY ==
--- NOTE | 2023-04-14 15:12 | XR_ITS ---
FINAL REPORT CLINICAL HISTORY: Hypoxemia FINDINGS: PA and lateral views of the chest are obtained. There is no prior exam for comparison. The cardiac and mediastinal silhouettes are within normal limits. The lungs are clear. There is no pleural effusion, pneumothorax, or acute osseous abnormality. IMPRESSION: No radiographic evidence of acute cardiac or pulmonary disease. Reviewed, Interpreted and Dictated by Zoe Chase MD Transcribed by Grace Oates Authenticated and [facility]
== END ==
PROVIDERS: PCP Nurse Practitioner Family; Visit Provider Nurse Practitioner Family
DX: G47.33 Obstructive sleep apnea (adult) (pediatric) (principal); G47.34 Idiopathic sleep related nonobstructive alveolar hypoventilation; Z87.891 Personal history of nicotine dependence; R06.09 Other forms of dyspnea
CPT/HCPCS: 71046; 94060; 94618; 94726; 94729

== ENCOUNTER → 2023-05-14 09:01 | Outpatient (CLI) | payer MEDICARE, MEDICAID, SELFPAY | PROVIDERS: PCP Internal Medicine; Visit Provider Internal Medicine | DX: E55.9 Vitamin D deficiency, unspecified (principal) | CPT/HCPCS: 82306 ==

== ENCOUNTER 2023-06-11 09:16 | Outpatient (CLI) | payer MEDICARE, MEDICAID, SELFPAY ==
--- NOTE | 2023-06-11 09:16 | XR_ITS ---
FINAL REPORT CLINICAL HISTORY: osteoporosis screening COMPARISON: None FINDINGS: Using L1-4, the bone mineral density of the spine is 1.230 g/cm2, corresponding to T-score of 1.7, within normal limits. Using the left hip, the bone mineral density of the femoral neck is 0.851 g/cm2, corresponding to a T-score of 0.0, within normal limits. Using the right hip, the bone mineral density of the femoral neck is 0.729 g/cm2, corresponding to a T-score of -1.1, consistent with low bone density. FRAX 10 year fracture risk is 0.8% for a hip fracture and 12% for a major osteoporotic fracture. NOTE: T-score: Standard deviation compared with peak bone mass of young adult mean. *Following the recommendations of the International Society of Bone densitometry, classification of hip BMD is based on the lower of two T-scores; total hip or femoral neck. IMPRESSION: Diminished bone mineral density consistent with low bone density. Reviewed, Interpreted and Dictated by Leeroy Gorman III, MD Transcribed by Yeni Grace Authenticated and [facility]
== END 2023-06-11 23:59 ==
LOC: RAD 09:16
PROVIDERS: PCP Internal Medicine; Visit Provider Internal Medicine
DX: M81.0 Age-related osteoporosis without current pathological fracture (principal)
CPT/HCPCS: 77080

== ENCOUNTER 2023-07-01 21:56 | Outpatient (CLI) | payer MEDICARE, MEDICAID, SELFPAY ==
[2023-07-02 01:48] LABS: Amphetamine/Metha Screen,Urine Negative ng/ml (<1000); Barbiturates Screen,Urine Negative ng/ml (<200)
[2023-07-02 01:50] LABS: Benzodiazepines Screen,Urine Negative ng/ml (<200)
[2023-07-02 01:51] LABS: Cannabinoid Screen,Urine Negative ng/ml (<50); Cocaine Screen,Urine Negative ng/ml (<300)
[2023-07-02 01:52] LABS: Methadone Screen,Urine Negative ng/ml (<300); Opiate Screen,Urine Positive ng/ml (<300)
[2023-07-02 01:53] LABS: Phencyclidine Screen,Urine Negative ng/ml (<25)
== END 2023-07-01 23:59 ==
LOC: LAB.DROPOF 21:57
PROVIDERS: PCP Internal Medicine; Visit Provider Internal Medicine
DX: Z79.899 Other long term (current) drug therapy (principal)
CPT/HCPCS: 80307

== ENCOUNTER 2023-07-16 10:37 | Outpatient (CLI) | payer MEDICARE, MEDICAID, SELFPAY ==
--- NOTE | 2023-07-16 10:43 | MM_ITS ---
PROCEDURE INFORMATION: Exam: MG Bilateral Screening 3D Mammography Exam date and time: 07/16/2023 10:30 AM Age: 63 years old Clinical indication: Screening mammogram. TECHNIQUE: Imaging protocol: Bilateral Screening tomosynthesis and 2D mammography including computer-aided detection (CAD) when performed. COMPARISON: 1. MG MM DIG SCREENING MAMM BI W/CAD 08/30/2021 9:52 AM 2. MG DIG MAMM-DX UNI-RT 12/10/2018 2:22 PM 3. MG DXRT MM Dig mamm DX unilat RT CAD 04/16/2018 3:22 PM 4. MG SCBI MM Dig screening mamm BI w/CAD 03/25/2018 11:06 AM FINDINGS: MAMMOGRAPHY: Breast composition: The breasts are almost entirely fatty. Mass: None. Architectural distortion: No new or suspicious architectural distortion. Calcifications: No new or suspicious calcifications are present Asymmetric density: No new or suspicious asymmetric density is present Skin thickening: None. Axillary adenopathy: None. IMPRESSION: No mammographic evidence of malignancy. Recommend annual screening mammography unless otherwise clinically indicated. ASSESSMENT: BI-RADS category 1: Negative
== END 2023-07-16 23:59 ==
LOC: RAD 10:38
PROVIDERS: PCP Internal Medicine; Visit Provider Internal Medicine
DX: Z12.31 Encounter for screening mammogram for malignant neoplasm of breast (principal)
CPT/HCPCS: 77063; 77067

== ENCOUNTER 2023-08-26 18:26 | Outpatient (CLI) | payer MEDICARE, MEDICAID, SELFPAY ==
[2023-08-26 18:42] LABS: Hemoglobin A1C 5.7 % (4.0-6.0)
[2023-08-26 19:04] LABS: 25-OH Vitamin D, Total 85.9 ng/mL (30-100)
== END 2023-08-26 23:59 ==
LOC: LAB.DROPOF 18:26
PROVIDERS: PCP Internal Medicine; Visit Provider Internal Medicine
DX: E11.9 Type 2 diabetes mellitus without complications (principal); E55.9 Vitamin D deficiency, unspecified
CPT/HCPCS: 82306; 83036

== ENCOUNTER 2023-11-16 10:20 | Outpatient (CLI) | payer MEDICARE, MEDICAID, SELFPAY ==
[2023-11-16 19:16] LABS: Cholesterol 198 mg/dl (140-200); HDL Cholesterol 66 mg/dl (40-60); Triglycerides 126 mg/dl (30-150); VLDL Cholesterol 25 mg/dL (0-40)
[2023-11-16 19:28] LABS: Direct LDL Cholesterol 88.54 mg/dL (100-129)
[2023-11-16 19:31] LABS: 25-OH Vitamin D, Total 54.3 ng/mL (30-100)
[2023-11-16 19:33] LABS: Microalbumin < 6.000 mg/L (0-16.7)
[2023-11-16 19:46] LABS: Creatinine,Urine Random 86 mg/dL (Not Estab.)
== END 2023-11-16 23:59 | disposition home or self-care (01) ==
LOC: LAB.DROPOF 11-17 10:21
PROVIDERS: Visit Provider Family Medicine
DX: E55.9 Vitamin D deficiency, unspecified (principal); I10 Essential (primary) hypertension; R73.03 Prediabetes; Z68.39 Body mass index [BMI] 39.0-39.9, adult; Z87.891 Personal history of nicotine dependence
CPT/HCPCS: 80061; 82043; 82306; 82570

== ENCOUNTER 2023-12-11 12:46 | Outpatient (CLI) | payer MEDICARE, MEDICAID, SELFPAY ==
--- NOTE | 2023-12-11 12:54 | XR_ITS ---
FINAL REPORT CLINICAL HISTORY: knee pain COMPARISON: None FINDINGS: Three views of the left knee reveal no evidence of fracture or dislocation. The bony alignment is normal. Mild degenerative changes are present. A moderate joint effusion is noted. No localized soft tissue abnormality is seen. IMPRESSION: Mild degenerative change with a moderate joint effusion. Reviewed, Interpreted and Dictated by Leeroy Gorman III, MD Transcribed by Kelly Sousa Authenticated and [facility]
[2023-12-11 18:13] LABS: Basophils % 0.7 % (0.1-2.0); Eosinophils # 0.1 K/mm3 (0.0-0.4); Eosinophils % 1.9 % (0.1-12.0); Lymphocytes # 1.8 K/mm3 (0.7-4.5); Lymphocytes % 27.2 % (10-50); Mean Corpuscular HGB Conc 32.5 g/dL (31.8-35.4); Mean Corpuscular Hemoglobin 30.5 pg (27.0-31.2); Mean Corpuscular Volume 93.8 fl (81-99); Mean Platelet Volume 8.5 fl (7.4-10.4); Monocytes # 0.4 K/mm3 (0.1-1.0); Monocytes % 6.4 % (1.7-9.3); Neutrophils # 4.2 K/mm3 (1.8-7.8); Neutrophils % 63.8 % (37.0-80.0); Platelet Count 316 K/mm3 (142-424); Red Blood Count 3.95 M/mm3 (4.20-5.40); Red Cell Distribution Width 14.1 % (11.5-17.5); White Blood Count 6.5 K/mm3 (4.8-10.8)
[2023-12-11 18:44] LABS: Alanine Aminotransferase 11 U/L (12-78); Albumin Level 4.4 g/dl (3.5-5.0); Albumin/Globulin Ratio 1.6 (1.1-1.8); Alkaline Phosphatase 88 U/L (38-126); Anion Gap 10.3 mEq/L (5-15); Aspartate Amino Transferase 20 U/L (14-36); Bilirubin,Total 0.5 mg/dl (0.2-1.3); Blood Urea Nitrogen 20 mg/dl (7-17); Calcium 9.4 mg/dl (8.4-10.2); Carbon Dioxide 30 mmol/L (22.0-30.0); Chloride 101 mmol/L (98-107); Estimated Glomerular Filt Rate 73 ml/min (>60); GFR (African American) 88 ML/MIN (>60); Globulin 2.8 g/dL (1.3-3.2); Glucose 83 mg/dl (74-100); Potassium 4.3 mmoL/L (3.5-5.1); Sodium 137 mmol/L (136-145); Total Protein,Serum 7.2 g/dl (6.3-8.2)
[2023-12-11 19:16] LABS: Thyroid Stimulating Hormone 0.84 uIU/mL (0.465-4.68)
[2023-12-11 20:19] LABS: Hemoglobin A1C 6.6 % (4.0-6.0)
[2023-12-12 10:49] LABS: HIV (1&2) Antibody Rapid NON REACTIVE
[2023-12-13 12:20] LABS: HCV Ab Non Reactive (Non Reactive)
== END 2023-12-11 23:59 | disposition home or self-care (01) ==
LOC: LAB.DROPOF 12:46
PROVIDERS: PCP Internal Medicine; Visit Provider Family Medicine
DX: M25.562 Pain in left knee (principal); E78.2 Mixed hyperlipidemia; I10 Essential (primary) hypertension; E87.6 Hypokalemia; R73.03 Prediabetes; E07.9 Disorder of thyroid, unspecified
CPT/HCPCS: 73562; 80050; 80053; 83036; 84443; 85025

== ENCOUNTER 2023-12-22 12:53 | Outpatient (CLI) | payer MEDICARE, MEDICAID, SELFPAY ==
[2023-12-22] MEDS: ZOLEDRONIC ACID/MANNITOL-WATER 5 MG/100 ML PGGYBK.BTL 400 MG IV (13:17)
[2023-12-22] MEDS: 0.9 % SODIUM CHLORIDE 50 ML 400 ML IV (13:18)
[2023-12-22 13:20] VITALS: BP 120/79; PULSE 65; RESP 18; O2SAT 97
[2023-12-22 13:48] VITALS: BP 113/75; PULSE 69; RESP 18; O2SAT 97
== END 2023-12-22 13:48 | disposition home or self-care (01) ==
LOC: INF 12:55
PROVIDERS: PCP Internal Medicine; Visit Provider Family Medicine
DX: M81.0 Age-related osteoporosis without current pathological fracture (principal); Z79.899 Other long term (current) drug therapy
CPT/HCPCS: 96374; J3489

== ENCOUNTER 2024-01-01 13:03 | Outpatient (CLI) | payer MEDICARE, MEDICAID, SELFPAY ==
--- NOTE | 2024-01-01 13:03 | MR_ITS ---
FINAL REPORT TECHNIQUE: Multiplanar MR imaging of the left knee was obtained without and with IV contrast CLINICAL HISTORY: left knee pain COMPARISON: None FINDINGS: Articular cartilage: Grade 3 chondromalacia of the patella. Significant thinning of the articular cartilage in the medial compartment. Marrow signal: Unremarkable. Joint fluid: Small effusion. Small Samaniego's cyst. Menisci: Normal morphology without tear Ligaments: Collateral, cruciate and patellofemoral ligaments intact Tendons: Quadriceps and patellar tendon normal Postcontrast: Mild synovial thickening which may be seen with synovitis. No abnormal enhancement. IMPRESSION: No evidence of meniscal tear. Degenerative changes. Findings compatible with synovitis. Reviewed, Interpreted and Dictated by Chapo Stephens MD Transcribed by Yeni Grace Authenticated and [facility]
== END 2024-01-01 23:59 | disposition home or self-care (01) ==
LOC: RAD 13:03
PROVIDERS: PCP Internal Medicine; Visit Provider Family Medicine
DX: M25.562 Pain in left knee (principal)
CPT/HCPCS: 73723; A9576

== ENCOUNTER 2024-05-01 11:39 | Emergency (ER) | payer MEDICARE, MEDICAID, SELFPAY ==
[2024-05-01 12:06] VITALS: BP 172/97; PULSE 87; RESP 20; TEMP 36.8; O2SAT 97; BMI 35.2
--- NOTE | 2024-05-01 12:13 | XR_ITS ---
PROCEDURE INFORMATION: Exam: XR Left Hip Exam date and time: 05/01/2024 1:12 PM Age: 64 years old Clinical indication: Hip pain; Left hip TECHNIQUE: Imaging protocol: Radiologic exam of the left hip. Views: 2 or 3 views hip with pelvis when performed. COMPARISON: CR XR PELVIS MIN 3V 03/13/2023 11:31 AM FINDINGS: Bones/joints: There is no evidence of acute fracture.There is no evidence of malalignment or dislocation. Mild degenerative changes in both hips and lumbar spine Soft tissues: Unremarkable. IMPRESSION: There is no evidence of acute fracture.There is no evidence of malalignment or dislocation.
[2024-05-01] MEDS: LIDOCAINE 5% TRANSDERMAL PATCH 1 EACH TP (12:19)
[2024-05-01] MEDS: KETOROLAC 30MG/ML VIAL 30 MG IM (12:19)
[2024-05-01] MEDS: CYCLOBENZAPRINE 10MG TABLET 10 MG PO (12:19)
[2024-05-01] MEDS: predniSONE 20MG TAB 60 MG PO (12:19)
--- NOTE | 2024-05-01 12:41 | ED_ITS ---
Discharge Plan Disposition Patient Disposition: Home, Self-Care Prescriptions Prescriptions: New cyclobenzaprine 10 mg tablet 10 mg PO TID PRN (Reason: muscle spasm) 5 Days Qty: 15 0RF lidocaine 4 % adhesive patch,medicated 1 patch topical DAILY Qty: 5 0RF Rx Instructions: may leave on for up to 12 hrs ibuprofen 800 mg tablet 800 mg PO TID PRN (Reason: pain) 7 Days Qty: 20 0RF prednisone 50 mg tablet 50 mg PO DAILY 5 Days Qty: 5 0RF Rx Instructions: Please begin 1 day after ED visit No Action gabapentin 600 mg tablet 600 mg PO TID Qty: 90 2RF hydrocodone-acetaminophen 10-325 mg tablet 1 tab PO Q6H PRN (Reason: pain) 30 Days Qty: 120 0RF Auvelity 45-105 mg tablet, IR and ER, biphasic 1 tab PO DAILY 3 Days Qty: 3 0RF Rx Instructions: 1 Tab daily x 3 days then 1 Tab twice daily Auvelity 45-105 mg tablet, IR and ER, biphasic 1 tab PO BID Qty: 60 2RF Rx Instructions: 1 Tab daily x 3 days then 1 Tab twice daily fluticasone propionate [Flonase Allergy Relief] 50 mcg/actuation spray,suspension 1 spray intranasal DAILY Qty: 16 8RF Rx Instructions: administer into each nostril duloxetine 60 mg capsule,delayed release(DR/EC) 120 mg PO DAILY 90 Days Qty: 180 4RF simvastatin 20 mg tablet See Rx Instructions .ROUTE .COMPLEX Qty: 90 2RF Dose Instruction: TAKE ONE TABLET BY MOUTH ONCE A DAY Rx Instructions: TAKE ONE TABLET BY MOUTH ONCE A DAY cetirizine 10 mg tablet See Rx Instructions .ROUTE .COMPLEX Qty: 90 3RF Dose Instruction: TAKE ONE TABLET BY MOUTH ONCE A DAY Rx Instructions: TAKE ONE TABLET BY MOUTH ONCE A DAY metoprolol succinate 50 mg tablet extended release 24 hr 50 mg PO DAILY 90 Days Qty: 90 4RF amlodipine 10 mg tablet 10 mg PO DAILY 90 Days Qty: 90 4RF quetiapine [Seroquel] 400 mg tablet 400 mg PO HS Qty: 90 3RF ondansetron 4 mg tablet,disintegrating See Rx Instructions .ROUTE .COMPLEX Qty: 30 1RF Dose Instruction: DISSOLVE 1 TABLET ON THE TONGUE EVERY 8 HOURS NEEDED FOR FOR NAUSEA AND VOMITING Rx Instructions: DISSOLVE 1 TABLET ON THE TONGUE EVERY 8 HOURS NEEDED FOR FOR NAUSEA AND VOMITING alendronate 70 mg tablet 70 mg PO WEEKLY Qty: 12 4RF tizanidine 4 mg tablet 8 mg PO TID PRN (Reason: muscle spasticity) 90 Days Qty: 270 4RF cholecalciferol (vitamin D3) 125 mcg (5,000 unit) capsule See Rx Instructions .ROUTE .COMPLEX Qty: 90 0RF Dose Instruction: TAKE 1 CAPSULE BY MOUTH ONCE A DAY FOR VITAMIN D DEFICIENCY Rx Instructions: TAKE 1 CAPSULE BY MOUTH ONCE A DAY FOR VITAMIN D DEFICIENCY promethazine-DM 6.25-15 mg/5 mL syrup 5 ml PO Q4-6H PRN (Reason: cough) Qty: 473 2RF diclofenac sodium 1 % gel 4 g topical QID Qty: 100 2RF losartan-hydrochlorothiazide 100-25 mg tablet See Rx Instructions .ROUTE .COMPLEX Qty: 90 3RF Dose Instruction: TAKE ONE TABLET BY MOUTH ONCE A DAY Rx Instructions: TAKE ONE TABLET BY MOUTH ONCE A DAY albuterol sulfate 0.63 mg/3 mL solution for nebulization 0.63 mg continuous nebulization TID Qty: 90 12RF albuterol sulfate 90 mcg/actuation HFA aerosol inhaler See Rx Instructions .ROUTE .COMPLEX Qty: 8.5 2RF Dose Instruction: INHALE 2 PUFFS BY MOUTH EVERY 4 TO 6 HOURS NEEDED FOR SHORTNESS OF BREATH OR WHEEZING Rx Instructions: INHALE 2 PUFFS BY MOUTH EVERY 4 TO 6 HOURS NEEDED FOR SHORTNESS OF BREATH OR WHEEZING Referrals Follow up/Referrals: Mikel Clakr APRN [Primary Care Provider] - See instructions Activity Restrictions/Add. Instructions Additional Instructions/Restrictions: No evidence of an acute neurologic or musculoskeletal emergency today. Your symptoms are consistent with sciatica on the left side. If her symptoms persist beyond a few days or weeks I would recommend you follow-up outpatient to get an MRI and have a discussion with a neurosurgeon. Return with any bowel or bladder incontinence numbness between your legs lower extremity paralysis or other concerns such as high fever etc. Symptomatic medications have been prescribed. I also recommend he follow-up with primary care doctor and if your symptoms persist I would recommend that you discuss with your doctor physical therapy. Clinical Impressions Clinical Impression: Left sided sciatica Print Language Print Language: Northern Irish Discharge ED Provider: Fran Pinedo General Adult HPI General Chief complaint: PAIN Stated complaint: left hip pain Time Seen by Provider: 05/01/24 12:08 Mode of Arrival: Wheelchair Source of Information: Patient Limitations: No Limitations Description of Symptoms (Recalled from ER Triage Doc. by RN): pt c/o left hip pain with no injury. states she woke up this am with the pain. states a 10/10 pain scale took a norco 10 at 630 this am History of Present Illness HPI narrative: Patient is a 64-year-old female presents today with what she describes as left hip pain. She states that this is in the superior lateral aspect of her left buttock and the paraspinal region of the lumbar spine no midline spine pain or tenderness. No history of fevers or cancer no significant incontinence no saddle anesthesia no lower extremity paralysis history of injection drug use etc. She states the pain radiates down the posterior lateral aspect of her left leg. No trauma. She has had sciatica in the past and an MRI within the last year. She states he has degenerative disease in her spine. Related Data Previous Rx's ?Medication ?Instructions ?Recorded fluticasone propionate 50 1 spray intranasal DAILY #16 grams 11/11/23 mcg/actuation nasal spray,suspension (Flonase Allergy Relief) duloxetine 60 mg capsule,delayed 120 mg (2 x 60 mg) PO DAILY 90 03/04/24 release days #180 caps amlodipine 10 mg tablet 10 mg PO DAILY 90 days #90 tabs 03/09/24 cetirizine 10 mg tablet See Rx Instructions .Route 03/09/24 .COMPLEX #90 tabs metoprolol succinate 50 mg 50 mg PO DAILY 90 days #90 tabs 03/09/24 tablet,extended release 24 hr simvastatin 20 mg tablet See Rx Instructions .Route 03/09/24 .COMPLEX #90 tabs quetiapine 400 mg tablet (Seroquel) 400 mg PO HS #90 tabs 03/18/24 alendronate 70 mg tablet 70 mg PO WEEKLY #12 tabs 03/21/24 ondansetron 4 mg disintegrating See Rx Instructions .Route 03/21/24 tablet .COMPLEX #30 tabs cholecalciferol (vitamin D3) 125 See Rx Instructions .Route 03/25/24 mcg (5,000 unit) capsule .COMPLEX #90 caps tizanidine 4 mg tablet 8 mg (2 x 4 mg) PO TID PRN muscle 03/25/24 spasticity 90 days #270 tabs promethazine-DM 6.25 mg-15 mg/5 mL 5 ml PO Q4-6H PRN cough #473 mL 03/31/24 oral syrup diclofenac sodium 1 % topical gel 4 g topical QID #100 grams 04/15/24 losartan 100 See Rx Instructions .Route 04/15/24 mg-hydrochlorothiazide 25 mg tablet .COMPLEX #90 tabs albuterol sulfate 0.63 mg/3 mL 0.63 mg (3 mL) continuous 04/18/24 solution for nebulization nebulization TID Breathing problems #90 mL albuterol sulfate 90 mcg/actuation See Rx Instructions .Route 04/18/24 aerosol inhaler .COMPLEX #8.5 grams dextromethorphan IR 45 1 tab PO BID #60 ea 04/26/24 mg-bupropion ER 105 mg biphasic tablet (Auvelity) dextromethorphan IR 45 1 tab PO DAILY 3 days #3 ea 04/26/24 mg-bupropion ER 105 mg biphasic tablet (Auvelity) gabapentin 600 mg tablet 600 mg PO TID #90 tabs 04/26/24 hydrocodone 10 mg-acetaminophen 1 tab PO Q6H PRN pain 30 days #120 04/26/24 325 mg tablet tabs cyclobenzaprine 10 mg tablet 10 mg PO TID PRN muscle spasm 5 05/01/24 days #15 tabs ibuprofen 800 mg tablet 800 mg PO TID PRN pain 7 days #20 05/01/24 tabs lidocaine 4 % topical patch 1 patch topical DAILY #5 ea 05/01/24 prednisone 50 mg tablet 50 mg PO DAILY 5 days #5 tabs 05/01/24 Allergies Allergy/AdvReac Type Severity Reaction Status Date / Time methadone (METHADONE) Allergy Severe S-DIFF. Verified 04/26/24 13:20 BREATHING morphine (MORPHINE) Allergy Intermediate I-RASH Verified 04/26/24 13:20 amitriptyline (From ELAVIL) Allergy Mild Verified 04/26/24 13:20 PFSH PFS Disclaimer: The information contained in this section may have been updated after the patient was seen, as this information can be updated by other users. Medical History Vitamin D deficiency Restless leg syndrome Depression Anxiety We will decrease the clonazepam to off. I suggested her that she go down to 0.25 mg/day x 14 days and then stop this medication, see below. She feels she really does not need it at this point and that the duloxetine has been very helpful. HLD (hyperlipidemia) In October 2022 triglycerides 185 total cholesterol 172 LDL of 66 and HDL 65. This is actually an excellent panel and we will continue the simvastatin. Family history of heart disease HTN (hypertension) Ex-smoker Abnormal electrocardiography Dyspnea SHAMA (obstructive sleep apnea) Nausea Sepsis Acute kidney injury Vasovagal episode Postoperative anemia due to acute blood loss Surgical History No significant past surgical history Family History Other Cancer Coronary artery disease Diabetes Heart attack Hypertension No significant family history Stroke Social History Smoking Status: Former smoker tobacco type: cigarettes packs per day: 1 second hand exposure: Yes alcohol intake: never substance use type: denies use current occupational status: other household members: other housing: house current occupational exposures/hazards: No caffeine: Yes Other Medical History Have you received the Flu Vaccine for this season: Yes Have you received the Pneumonia Vaccine: No ROS Obtained: Yes All systems reviewed & no additional complaints except as documented Physical Exam General General appearance: in distress (And pain) Respiratory Respiratory exam: Present normal lung sounds bilaterally Cardiovascular Cardiovascular exam: Present regular rate Extremities Exam Extremities exam: Present other (Normal range of motion patient does have tenderness in the paraspinal musculature in the left side worsening with any type of movement neurovascular intact) Neurological Exam Neurological exam: Present alert and oriented X3 Medical Decision Making Medical Records Screening: Per USPSTF and CDC recommendations, given the prevalence of disease in our region, it is our hospital?s policy to screen for HIV and viral Hepatitis for all patients aged 18 and over and those with ongoing risk factors. William Inquiry Pt receiving controlled substance: No Vital Signs: 05/01/24 12:06 Temperature 98.3 F Temperature Source Oral Pulse Rate [Right Radial] 87 Respiratory Rate 20 Blood Pressure [Right Arm] 172/97 H Blood Pressure Mean [Right Arm] 122 02 Sat by Pulse Oximetry 97 Oxygen Delivery Method Room Air Orders (Tests/Meds): ED MEDICATIONS Discontinued Medications Generic Name Dose Route Start Last Admin Trade Name Odalys PRN Reason Stop Dose Admin Cyclobenzaprine HCl 10 mg 05/01/24 12:11 05/01/24 12:19 Cyclobenzaprine 10mg Tablet PO 05/01/24 12:12 10 mg ONCE ONE Administration Ketorolac Tromethamine 30 mg 05/01/24 12:11 05/01/24 12:19 Ketorolac 30mg/Ml Vial IM 05/01/24 12:12 30 mg ONCE ONE Administration Lidocaine 1 each 05/01/24 12:11 05/01/24 12:19 Lidocaine 5% Transdermal Patch TP 05/01/24 12:12 1 each ONCE ONE Administration Prednisone 60 mg 05/01/24 12:11 05/01/24 12:19 Prednisone 20mg Tab PO 05/01/24 12:12 60 mg ONCE ONE Administration ORDERS Category Date Time Status Hip XR left minimum 2 views [XR hip LT 2-3V w/pelvis] Exams 05/01/24 12:13 Completed Stat Medical Decision Narrative: Patient is a 64-year-old female with nontraumatic left hip pain . This is actually in the superior lateral aspect of her lumbosacral region at the superiormost aspect of the left buttock radiating down the left posterior lateral aspect of her leg consistent with sciatica. She has no red flags from a PER DIEM REGISTERED NURSE standpoint. Given her localization of pain however we will get a plain film of her hip. Symptomatic medications have been administered will reassess. X-ray performed which I personally interpreted which shows no acute fractures or dislocation or other orthopedic emergency. Patient's symptoms have improved and are tolerable and on serial exams I do not suspect alternative pathology at the moment. Symptoms are still localized to the same region that she has discussed. Reviewing her chart she does have chronic pain and said many presentations for her chronic pain. Her primary concern is for pain control today I told her I would not be prescribing opiates however we did prescribe a cocktail of medications which may help if this is secondary to a herniated disc. She has been advised to follow-up with primary care doctor as well as with a ramirez rosurgeon if her symptoms persist and to discuss physical therapy. Patient was discharged in stable condition with return precautions emphasized Critical Care Critical Care Time Critical Care Time: No
[2024-05-01 14:31] VITALS: BP 172/97; PULSE 87; RESP 18; TEMP 36.8
== END 2024-05-01 14:33 | disposition home or self-care (01) ==
PROVIDERS: Emergency Provider Student in an Organized Health Care Education/Training Program; PCP Nurse Practitioner Family
DX: M54.32 Sciatica, left side (principal); M25.552 Pain in left hip; M54.50 Low back pain, unspecified
CPT/HCPCS: 73502; 96372; 99283; J1885

== ENCOUNTER 2024-07-14 13:20 | Outpatient (CLI) | payer MEDICARE, MEDICAID, SELFPAY ==
--- NOTE | 2024-07-14 13:28 | XR_ITS ---
FINAL REPORT CLINICAL HISTORY: Rt Hip pain FINDINGS: Right hip Three views were obtained. There is no fracture or dislocation. The joint spaces appear normal. No soft tissue abnormality is identified. IMPRESSION: No acute process. Reviewed, Interpreted and Dictated by Rick Lynn MD Transcribed by Jovita Quiroga Authenticated and [facility]
--- NOTE | 2024-07-14 13:28 | XR_ITS ---
FINAL REPORT CLINICAL HISTORY: Knee pain COMPARISON: 03/13/2023 FINDINGS: Right knee Three views were obtained. There is no fracture or dislocation. There is mild narrowing of the medial compartment, slightly more evident than previous. No soft tissue abnormality is identified. IMPRESSION: Mild narrowing of the medial compartment joint space. Reviewed, Interpreted and Dictated by Rick Lynn MD Transcribed by Jovita Quiroga Authenticated and [facility]
== END 2024-07-14 23:59 | disposition home or self-care (01) ==
LOC: RAD 13:24
PROVIDERS: PCP Nurse Practitioner Family; Visit Provider Physician Assistant Surgical
DX: M25.551 Pain in right hip (principal); M25.561 Pain in right knee
CPT/HCPCS: 73502; 73562

== ENCOUNTER 2024-07-26 16:28 | Outpatient (CLI) | payer MEDICARE, MEDICAID, SELFPAY ==
--- NOTE | 2024-07-26 16:29 | MR_ITS ---
PROCEDURE INFORMATION: Exam: MR Lumbar Spine Without Contrast Exam date and time: 07/26/2024 4:34 PM Age: 64 years old Clinical indication: Low back pain; Additional info: Lbp, ddd TECHNIQUE: Imaging protocol: Magnetic resonance imaging of the lumbar spine without contrast. COMPARISON: MR LUMBAR SPINE WO CON 04/02/2023 1:12 PM FINDINGS: Bones/joints: Unremarkable. No acute fracture. There is are old mild superior endplate compression fracture of T12 and L5. Diffuse severe degenerative disc disease is noted with disc space narrowing, irregularity and desiccation. Normal alignment. Spinal cord: Visualized cord, conus medullaris and cauda equina are unremarkable without compression. L1-L2: There is mild facet arthropathy. There is a prominent left paracentral disc extrusion with disc material extending cranially behind the L2 body. The extruded disc measures approximately 8 x 12 x 17 mm. This is a new finding since the prior examination. Overall there is mild central canal stenosis at this level and mild bilateral foraminal stenosis. L2-L3: There is moderate facet arthropathy. There is a mild broad-based central disc protrusion with focal bilateral paracentral components. The right paracentral component extends slightly behind the L3 body consistent with extrusion. The appearance is similar to the prior exam. Overall there is [id number]-pv-hpmmtcey central canal stenosis and mild bilateral foraminal stenosis. L3-L4: Annular disc bulge is noted with a small left foraminal disc protrusion. There is moderate facet arthropathy. Overall there is mild central canal stenosis with moderate left lateral recess narrowing. Moderate left and mild right foraminal stenosis. L4-L5: There is severe facet arthropathy. Again noted is central disc extrusion with disc material extending cranially behind the L4 body. The extruded disc is similar to the prior exam. There is mild to moderate central canal stenosis with severe right lateral recess narrowing. There is severe right and moderate to severe left foraminal stenosis. L5-S1: There is severe facet arthropathy. Very mild disc bulge. No significant central canal stenosis. [id number] right and mild left foraminal stenosis. Soft tissues: Unremarkable. IMPRESSION: 1. Progression of the left paracentral disc extrusion at L1-L2 with disc material extending cranially behind the L2 body. There is now mild central canal stenosis at this level more prominent on the left. Mild bilateral foraminal stenosis is unchanged. 2. The remaining levels demonstrate diffuse significant degenerative changes which are similar in their appearance to the prior exam. There is esqv-vc-fcrycnpt central canal stenosis at L2-L3, mild central canal stenosis at L3-L4 and pyxm-ob-ntcqwdit central canal stenosis at L4-L5. Moderate left foraminal stenosis at L3-L4, severe right and moderate to severe left foraminal stenosis at L4-L5.
== END 2024-07-26 23:59 | disposition home or self-care (01) ==
LOC: RAD 16:29
PROVIDERS: PCP Nurse Practitioner Family; Visit Provider Nurse Practitioner Family
DX: M51.369 Other intervertebral disc degeneration, lumbar region without mention of lumbar back pain or lower extremity pain (principal); M51.16 Intervertebral disc disorders with radiculopathy, lumbar region
CPT/HCPCS: 72148

== ENCOUNTER 2024-08-11 11:53 | Outpatient (CLI) | payer MEDICARE, MEDICAID, SELFPAY ==
--- NOTE | 2024-08-11 11:56 | XR_ITS ---
FINAL REPORT CLINICAL HISTORY: Foot pain can t walk COMPARISON: 02/10/2023 FINDINGS: Three views of the left foot show mild diffuse degenerative changes. There are postoperative changes from distal tibia and ankle fusion. The hardware is stable. IMPRESSION: Stable postoperative and degenerative changes without acute findings. Reviewed, Interpreted and Dictated by Chapo Stephens MD Transcribed by Yeni Grace Authenticated and [facility]
== END 2024-08-11 23:59 | disposition home or self-care (01) ==
LOC: RAD 11:54
PROVIDERS: PCP Nurse Practitioner Family; Visit Provider Nurse Practitioner Family
DX: M79.672 Pain in left foot (principal); Z98.890 Other specified postprocedural states
CPT/HCPCS: 73630

== ENCOUNTER 2024-08-22 13:08 | Outpatient (CLI) | payer MEDICARE, MEDICAID, SELFPAY ==
--- NOTE | 2024-08-22 13:08 | MM_ITS ---
PROCEDURE INFORMATION: Exam: MG Bilateral Screening 3D Mammography Exam date and time: 08/22/2024 1:15 PM Age: 64 years old Clinical indication: Screening examination TECHNIQUE: Imaging protocol: Bilateral Screening tomosynthesis and 2D mammography including computer-aided detection (CAD) when performed. COMPARISON: 1. MG MM DIG SCREENING MAMM BI W/CAD 07/16/2023 10:30 AM 2. MG MM DIG SCREENING MAMM BI W/CAD 08/30/2021 9:52 AM FINDINGS: MAMMOGRAPHY: Breast composition: The breasts are almost entirely fatty. Mass: No suspicious masses. Architectural distortion: None. Calcifications: No suspicious calcifications. Asymmetric density: None. Skin thickening: None. Axillary adenopathy: None. IMPRESSION: No mammographic evidence of malignancy. Annual screening is recommended unless otherwise clinically indicated. ASSESSMENT: BI-RADS Category 1: Negative.
== END 2024-08-22 23:59 | disposition home or self-care (01) ==
LOC: RAD 13:08
PROVIDERS: PCP Nurse Practitioner Family; Visit Provider Internal Medicine
DX: Z12.31 Encounter for screening mammogram for malignant neoplasm of breast (principal)
CPT/HCPCS: 77063; 77067

== ENCOUNTER 2024-11-21 11:33 | Outpatient (CLI) | payer MEDICARE, MEDICAID, SELFPAY ==
--- OUTSIDE RECORDS SUMMARY | 2024-11-21 11:36 | XMS_ITS | Clinical Summary ---
Author Organization [employer] Address [address] [place] [id number] Care Team Providers Care De Ionizer Operator Name Role Phone Unavailable Primary Care Provider Unavailabl e Social History Tobacco Use Types Packs/Day Years Used Date Smoking Tobacco: Never Assessed Comments Unknown Sex and Gender Information Value Date Recorded Sex Assigned at Not on file Legal Sex Female 7:26 PM CDT Gender Identity Not on file Sexual Orientation Not on file Plan of Treatment Not on file
--- OUTSIDE RECORDS SUMMARY | 2024-11-21 11:36 | XMS_ITS | Referral Summary ---
Author Organization [employer] Address [address] [place] [id number] Care Team Providers Care Director Of Oncology Name Role Phone Unavailable Primary Care Provider [...]
--- OUTSIDE RECORDS SUMMARY | 2024-11-21 11:36 | XMS_ITS | Clinical Summary ---
Author Organization [facility] Address [address] [place] [address] Care Team Providers Care Food Service Substitute Name Role Phone Mikel Clark APRN Primary Care Provider Allergies Active Allergy Reactions Criticality Noted Date Comments Amitriptyline Rash Low 12/18/2021 Methadone Shortness of breath High 11/13/2021 Morphine Hives,Rash Medium 04/10/2009 Medications albuterol 108 (90 Base) MCG/ACT inhaler 10/25/2021 Active amLODIPine (Norvasc) 10 MG tablet 11/05/2021 Active cetirizine (ZyrTEC) 10 MG tablet 10/25/2021 Active diclofenac (Voltaren) 1 % topical gel 10/25/2021 Active DULoxetine (Cymbalta) [address] capsule 10/25/2021 Active gabapentin (Neurontin) 600 MG tablet 10/25/2021 Active HYDROcodone-acetamin ophen (Carlton) 7.5-325 MG tablet 10/25/2021 A ctive losartan-hydroCHLORO thiazide (Hyzaar) 100-25 MG tablet 11/05/2021 Ac tive metoprolol succinate XL (Toprol-XL) 50 MG 24 hr tablet 11/05/2021 Active ondansetron ODT (Zofran-ODT) 4 MG disintegrating tablet 10/30/2021 Active oxybutynin XL (Ditropan-XL) 15 MG 24 hr tablet 11/05/2021 Active QUEtiapine (SEROquel) 300 MG tablet 11/05/2021 Active simvastatin (Zocor) 10 MG tablet 07/02/2021 Active tiZANidine (Zanaflex) 4 MG tablet 11/06/2021 Active simvastatin (Zocor) 20 MG tablet 12/18/2021 Active Immunizations Immunization Administration Dates Next Due TD (adult), 2 Lf tetanus tox oid, preservative free, adsorbed 04/10/2009 Family History Medical History Relation Name Comments Depression Brother 1 Hypertension Brother 2 Pancreatic cancer Brother 3 Cardiac disorder Father Brain cancer Mother Lung cancer Other Depression Sister 1 Hypertension Sister 2 Relation Name Status Comments Brother 1 Brother 2 Brother 3 Father Mother Other Sister 1 Sister 2 Social History Tobacco Use Types Packs/Day Years Used Date Smoking Tobacco: Former Smokeless Tobacco: Never Alcohol Use Standard Drinks/Week Comments Never 0 (1 standard drink = 0.6 oz pur e alcohol) Comments Unknown Sex and Gender Information Value Date Recorded Sex Assigned at Female 11/06/2021 8:00 AM EDT Legal Sex Female 8:05 PM EDT Gender Identity Female 11/06/2021 8:00 AM EDT Sexual Orientation Not on file Last Filed Vital Signs Vital Sign Reading Time Taken Comments Blood Pressure 136/80 12/18/2021 3:21 PM EDT Pulse - - Temperature - - Respiratory Rate - - Oxygen Saturation - - Inhaled Oxygen Concentration - - Weight 87.1 kg (192 lb) 12/18/2021 3:21 PM EDT Height 157.5 cm (5' 2 ) 12/18/2021 3:21 PM EDT Body Mass Index 35.12 12/18/2021 3:21 PM EDT Plan of Treatment Health Maintenance Due Date Last Done Comments [facility]-Depression Screening 1961 [facility]-HIV Screening 1961 [facility]-Hepatitis C Screening 1961 [facility]-Medicare Annual Wellness (AWV) 1961 [facility]-Infant/Child/Adol SDOH Screenings 1961 [facility]-Obesity Intervention 1967 [facility]- SDOH Screenings 1979 [facility]-Adult SDOH Screenings 1979 CT Colonography 2006 Colonoscopy 2006 FIT-DNA 2006 FIT 2006 FOBT 2006 Sigmoidoscopy 2006 [facility]-Colorectal Cancer Screening 2006 [facility]-DTaP,Tdap,and Td Vaccines (1 - Tdap) 04/11/2009 04/10/2009 [facility]-Breast Cancer Screening 2011 [facility]-Pneumococcal Vaccine: 50+ Years (2 of 2 - PCV) 04/21/2019 04/21/2018, 11/19/2011 [id number] Vaccine ( season) 2024 09/27/2021, 05/22/2021, 11/19/2020, Additional history exists [facility]-RSV Vaccine: 60+ Years or (1 - 1-dose 75+ series) 01/26/2036 [facility]-Zoster Vaccines Completed 02/21/2022, [facility]-Influenza Vaccine Completed 07/20/2024 , 04/15/2023, 08/01/2021, Additional history exists HPV Vaccines Aged Out No longer eligi ble based on patient's age to complete this topic [facility]-HIB Vaccines Aged Out No longer e ligible based on patient's age to complete this topic [facility]-Hepatitis A Vaccines Aged Out No longer eligible based on patient's age to complete this topic [facility]-IPV Vaccines Aged Out No longer e ligible based on patient's age to complete this topic [facility]-Rotavirus Vaccines Aged Out No lo nger eligible based on patient's age to complete this topic Insurance [place]IC[place] Care Teams Food Service Substitute Relationship Specialty Start Date End Date Mikel Clark APRN [address] [place] [address] PCP - General 12/19/21
--- OUTSIDE RECORDS SUMMARY | 2024-11-21 11:36 | XMS_ITS | Encounter Summary ---
Author Organization [facility] Address [address] [place] [address] Care Team Providers Care Notch Machine Operator Name Role Phone Santiago Michel MD Primary Care Provider [phone] Mikel Clark APRN Primary Care Provider [phone] Reason for Referral * Consultation (Routine) - Closed Specialty Diagnoses / Procedures Referred By Tamera perez Referred To Contact Neurosurgery Diagnoses Degenerative lumbar spinal stenosis Mikel Clark APRN [address] [place] [address] Phone: tel: fax: Referral ID Status Reason Start Date Expiration Date V isits Requested Visits Authorized [id number] Closed Specialty Services Required 10/01/2021 04/02/2023 1 1 Encounter Details Date Type Department Care Team (Late st Contact Info) Description 10/01/2021 [facility] [address] [place] [address] Mikel Clark APRN [address] [place] [address] Degenerative lumbar spinal stenosis (Primary Dx) Social History Tobacco Use Types Packs/Day Years Used Date Smoking Tobacco: Every Day Alcohol Use Standard Drinks/Week Comments Yes 0 (1 standard drink = 0.6 oz pur e alcohol) Comments Unknown Sex and Gender Information Value Date Recorded Sex Assigned at Female 11/06/2021 8:00 AM EDT Legal Sex Female 8:05 PM EDT Gender Identity Female 11/06/2021 8:00 AM EDT Sexual Orientation Not on file documented as of this encounter Plan of Treatment Scheduled Referrals Name Type Priority Associated Diagnoses Order Schedule Ambulatory Referral to Neurosurgery Outpatient Referral Routine Degenerative lumbar spinal stenosis 1 Occurrences starting 10/01/2021 until 12/31/2021 documented as of this encounter Visit Diagnoses Diagnosis Degenerative lumbar spinal stenosis- Primary Spinal stenosis of lumbar region documented in this encounter Care Teams Notch Machine Operator Relationship Specialty Start Date End Date Santiago Michel MD [address] [place] [address] PCP - General 10/19/20 12/18/21 Mikel Clark APRN [address] [place] [address] PCP - General 12/19/21 documented as of this encounter
--- NOTE | 2024-11-21 11:37 | XR_ITS ---
FINAL REPORT CLINICAL HISTORY: foot pain COMPARISON: 02/10/2023 FINDINGS: RIGHT FOOT 3 views of the right foot were obtained. There is no acute fracture or dislocation. There are mild hypertrophic changes of the 1st MTP joint. A small plantar spur is noted. There is mild soft tissue edema over the foot. IMPRESSION: Soft tissue edema without acute bony abnormality. Mild hypertrophic changes and small plantar spur. Reviewed, Interpreted and Dictated by Rick Lynn MD Transcribed by Yeni Grace Authenticated and [facility]
--- NOTE | 2024-11-21 11:37 | XR_ITS ---
FINAL REPORT CLINICAL HISTORY: left foot pain, hx of surgery COMPARISON: 08/11/2024 FINDINGS: LEFT FOOT Three views of the left foot demonstrate no acute fracture or dislocation. There are moderate hypertrophic changes of the 1st MTP joint. There is a small plantar spur. Mild soft tissue edema is noted over the dorsum of the foot. IMPRESSION: Soft tissue edema without acute bony abnormality. Moderate hypertrophic changes. Reviewed, Interpreted and Dictated by Rick Lynn MD Transcribed by Yeni Grace Authenticated and [facility]
--- NOTE | 2024-11-21 11:37 | XR_ITS ---
FINAL REPORT CLINICAL HISTORY: ankle pain COMPARISON: 02/10/2023 FINDINGS: RIGHT ANKLE 3 views of the right ankle were obtained. There is no acute fracture or dislocation. The mortise is intact. Visualized joint spaces are normally aligned. Well corticated ossific density inferior to the medial malleolus measuring 4 mm is likely due to old trauma. There is prominent soft tissue edema about the ankle. IMPRESSION: Soft tissue edema without acute bony abnormality. Reviewed, Interpreted and Dictated by Rick Lynn MD Transcribed by Yeni Grace Authenticated and [facility]
--- NOTE | 2024-11-21 11:37 | XR_ITS ---
FINAL REPORT CLINICAL HISTORY: ankle pain COMPARISON: 04/27/2020 FINDINGS: LEFT ANKLE Three views demonstrate no acute fracture or dislocation. There are postsurgical changes from prior fusion. Anterior fusion hardware is seen bridging the anterior aspect of the distal tibia and talus. The visualized joint spaces are normally aligned. There is a moderate plantar spur. Prominent soft tissue edema is noted about the ankle. IMPRESSION: Postoperative changes and soft tissue edema without acute bony abnormality. Reviewed, Interpreted and Dictated by Rick Lynn MD Transcribed by Yeni Grace Authenticated and [facility]
== END 2024-11-21 23:59 | disposition home or self-care (01) ==
LOC: RAD 11:34
PROVIDERS: PCP Nurse Practitioner Family; Visit Provider Podiatrist
DX: M19.072 Primary osteoarthritis, left ankle and foot (principal); M19.071 Primary osteoarthritis, right ankle and foot; M79.89 Other specified soft tissue disorders; M77.31 Calcaneal spur, right foot; Z98.890 Other specified postprocedural states
CPT/HCPCS: 73610; 73630

== ENCOUNTER 2024-12-06 10:48 | Outpatient (CLI) | payer MEDICARE, MEDICAID, SELFPAY ==
--- OUTSIDE RECORDS SUMMARY | 2024-12-06 10:51 | XMS_ITS | Encounter Summary ---
Author Organization [facility] Address [address] [place] [address] Care Team Providers Care Trolley Car Overhauler Name Role Phone Santiago Michel MD Primary Care Provider + [phone] Mikel Clark APRN Primary Care Provider [phone] Reason for Referral * Consultation (Routine) - Closed Specialty Diagnoses / Procedures Referred By Tamera perez Referred To Contact Neurosurgery Diagnoses Degenerative lumbar spinal stenosis Mikel Clark APRN [address] [place] [address] Phone: tel: fax: Referral ID Status Reason Start Date Expiration Date V isits Requested Visits Authorized [id number] Closed Specialty Services Required 10/01/2021 04/02/2023 1 1 Encounter Details Date Type Department Care Team (Late st Contact Info) Description 10/01/2021 Community [facility] [address] [place] [address] Mikel Clark APRN [address] [place] [address] Degenerative lumbar spinal stenosis (Primary Dx) Social [...] region documented in this encounter Care Teams Trolley Car Overhauler Relationship Specialty Start Date End Date Santiago Michel MD [address] [place] [address] PCP - General 10/19/20 12/18/21 Mikel Clark APRN [address] [place] [address] PCP - General 12/19/21 documented as of this encounter
--- OUTSIDE RECORDS SUMMARY | 2024-12-06 10:51 | XMS_ITS | Referral Summary ---
Author Organization [employer] ([place], [place], [place], [place]) Address [address] [place] [address] Care Team Providers Care Grounds Person Name Role Phone Unavailable Primary Care Provider [...]
--- OUTSIDE RECORDS SUMMARY | 2024-12-06 10:51 | XMS_ITS | Clinical Summary ---
Author Organization [facility] Address [address] [place] [address] Care Team Providers Care Machine Set Up Name Role Phone Mikel Clark APRN Primary [...] 600 MG tablet 10/25/2021 Active HYDROcodone-acetamin ophen (Willits) 7.5-325 MG tablet 10/25/2021 A ctive losartan-hydroCHLORO [...] Screening 1961 [facility]-Medicare Annual Wellness (AWV) 1961 [facility]-/Child/Adol SDOH Screenings 1961 [facility]-Obesity Intervention 1967 [facility]- SDOH Screenings 1979 [facility]-Adult SDOH Screenings 1979 CT Colonography 2006 Colonoscopy 2006 FIT-DNA 2006 FIT 2006 FOBT 2006 Sigmoidoscopy 2006 [facility]-Colorectal Cancer Screening 2006 [facility]-DTaP,Tdap,and Td Vaccines (1 - Tdap) 04/11/2009 04/10/2009 [facility]-Breast Cancer Screening 2011 [facility]-Pneumococcal Vaccine: 50+ Years (2 of 2 - PCV) 04/21/2019 04/21/2018, 11/19/2011 [id number] Vaccine ( season) 2024 09/27/2021, 05/22/2021, 11/19/2020, [...] topic Insurance [place]ICA[place] [employer] MEDICARE Care Teams Machine Set Up Relationship Specialty Start Date End Date Mikel Clark APRN [address] [place] [address] PCP - General 12/19/21
--- OUTSIDE RECORDS SUMMARY | 2024-12-06 10:51 | XMS_ITS | Clinical Summary ---
Author Organization [employer] ([place], [place], [place], [place]) Address [address] [place] [address] Care Team Providers Care Batterboard Setter Name Role Phone Unavailable Primary Care Provider [...]
[2024-12-06 12:21] LABS: Alanine Aminotransferase 12 U/L (12-78); Albumin Level 4.8 g/dl (3.5-5.0); Albumin/Globulin Ratio 1.7 (1.1-1.8); Alkaline Phosphatase 122 U/L (38-126); Anion Gap 14.0 mEq/L (5-15); Aspartate Amino Transferase 21 U/L (14-36); Bilirubin,Total 0.9 mg/dl (0.2-1.3); Blood Urea Nitrogen 9 mg/dl (7-17); Calcium 10.0 mg/dl (8.4-10.2); Carbon Dioxide 29 mmol/L (22.0-30.0); Chloride 92 mmol/L (98-107); Creatinine,Serum 0.80 mg/dl (0.52-1.04); Estimated Glomerular Filt Rate 72 ml/min (>60); GFR (African American) 88 ML/MIN (>60); Globulin 2.9 g/dL (1.3-3.2); Glucose 108 mg/dl (74-100); Potassium 4.0 mmoL/L (3.5-5.1); Sodium 131 mmol/L (136-145); Total Protein,Serum 7.7 g/dl (6.3-8.2)
[2024-12-06 12:35] LABS: Free T4 (Free Thyroxine) 0.93 ng/dl (0.78-2.19)
[2024-12-06 12:49] LABS: Thyroid Stimulating Hormone 0.74 uIU/mL (0.465-4.68)
== END 2024-12-06 23:59 | disposition home or self-care (01) ==
LOC: LAB 10:49
PROVIDERS: PCP Nurse Practitioner Family; Visit Provider Nurse Practitioner Acute Care
DX: F39 Unspecified mood [affective] disorder (principal); F41.1 Generalized anxiety disorder; F41.0 Panic disorder [episodic paroxysmal anxiety]
CPT/HCPCS: 36415; 80053; 84439; 84443

== ENCOUNTER 2025-01-30 10:41 | Outpatient (RCR) | payer MEDICARE, MEDICAID, SELFPAY ==
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
== END 2025-01-30 23:59 | disposition home or self-care (01) ==
LOC: PT 10:41
PROVIDERS: PCP Nurse Practitioner Family; Visit Provider Podiatrist
DX: I89.0 Lymphedema, not elsewhere classified (principal)
CPT/HCPCS: 97163